=== PATIENT | female | born 1930 | race Caucasian/White ===

== ENCOUNTER 2017-01-02 14:40 | Inpatient (IN) | payer OTHER, MEDICARE ==
[~2017-01-02] VITALS: Ht 162.6 cm; Wt 75.7 kg
[2017-01-02] MEDS ORDERED: ALBUT/IPRATROP 3MG/0.5MG NEB 3 ML VIAL INH STA (15:06)
[2017-01-02 15:29] LABS: BASO % 0.3 %; BASO ABS # 0.02 K/uL (0-0.2); COMPLETE YES; EOS % 0.9 %; HEMATOCRIT 48.4 % (37-47); IG% 0.3 %; LYMPH % 18.9 %; MEAN CELL VOLUME 98.4 fL (80-100); MEAN CORPUSCULAR HEMOGLOBIN 32.5 pg (25-34); MEAN CORPUSCULAR HGB CONC 33.1 g/dl (32-36); MEAN PLATELET VOLUME 9.8 fL (7.4-10.4); MONO % 13.9 %; NEUT % 65.7 %; PLATELET COUNT 284 K/uL (130-400); RED BLOOD COUNT 4.92 M/uL (4.2-5.4); WHITE BLOOD COUNT 5.82 K/uL (4.8-10.8)
[2017-01-02 15:39] LABS: PARTIAL THROMBOPLASTIN RATIO 0.9; PROTHROMBIN TIME (PATIENT) 10.7 SECONDS (9.0-12.0)
[2017-01-02 15:49] LABS: BUN/CREATININE RATIO 26.3 (10-20); CALCIUM 8.9 mg/dl (8.5-10.1); CREATININE 0.64 mg/dl (0.60-1.20); POTASSIUM 3.2 mmol/L (3.5-5.1)
--- NOTE | 2017-01-02 15:53 | DIAGNOSTIC IMAGING REPORT ---
CHEST ONE VIEW PORTABLE CLINICAL HISTORY: CHEST PAIN dyspnea COMPARISON STUDY: No previous studies for comparison. FINDINGS: Poorly defined parenchymal infiltrate left base. Moderate elevation right hemidiaphragm. Lungs otherwise appear clear. IMPRESSION: Infiltrate left base Electronically signed by: Pipe Ayala M.D. 01/02/2017 3:52 PM Dictated Date/Time: 01/02/2017 3:52 PM
[2017-01-02 15:54] LABS: CKMB/CK RATIO 9.4 (0-3.0)
--- NOTE | 2017-01-02 16:18 | EMERGENCY ROOM VISIT NOTE ---
History Report prepared by Joel: Geronimo Francisco Under the Supervision of: Dr. Geronimo Leonardo M.D. First contact with patient: 14:58 Chief Complaint: RESPIRATORY PROBLEMS Stated Complaint: SOB Nursing Triage Summary: Patient arrived to [facility] via ALS from home. Patient states "My daughter and I were away in OR from the 03-22 of this month. When I got home, I got a cough and some shortness of breath. I saw my PCP last and was prescribed a 5 day course of Zithromax and Prednisone. I have COPD and I use a proair inhaler as well. I woke up this morning with increased difficulty breathing, a harry nonproductive cough and swelling in both of my legs." Patient denies any cardiac history. History of Present Illness The patient is a 86 year old female who presents to the Emergency Room by EMS with complaints of persistent shortness of breath beginning about 5 days ago. She recently travelled to [place] with her daughter, and notes her daughter became sick during the trip. She reports having a nonproductive cough, and had diarrhea only at the onset of her symptoms, but she denies having any fever, aches, nausea, vomiting, chest pain, or abdominal pain. She states her symptoms are worsened with laying down, and better with sitting up. The patient reports having a history of COPD and asthma, and normally uses albuterol. She was given a nebulizer by EMS. She does not use supplemental oxygen at home. The patient has been on azithromycin and prednisone, and was given 125 mg of Solu Medrol and a Duoneb at the clinic where she was seen. She was also hypoxemic at the clinic. She follows with Dr. Mendez. Source of History: patient, transfer records Onset: 5 days ago Position: other (lungs) Quality: other (shortness of breath) Timing: other (persistent) Associated Symptoms: + cough, + diarrhea (at onset of symptoms only), No chest pain, No fevers, No nausea Review of Systems See HPI for pertinent positives & negatives. A total of 10 systems reviewed and were otherwise negative. Past Medical & Surgical Medical Problems: (1) COPD exacerbation (2) Influenza A Old medical records were reviewed. Nurse's notes were reviewed and I agree with. Family History No pertinent family history stated. Social History Smoking Status: Former Smoker Drug Use: none Marital Status: single Current/Historical Medications Scheduled Aspirin (Aspirin 81), 81 MG PO QAM Atenolol (Tenormin), 25 MG PO QAM Cetirizine (Zyrtec), 10 MG PO QAM Hydrochlorothiazide (Hctz), 25 MG PO QAM Losartan Potassium (Cozaar), 25 MG PO QAM Metronidazole (Topical) (Metrogel), 1 APPLN TOP HS Multiple Vitamins W/ Minerals (Preservision Areds 2), 2 CAP PO QAM Oyster Shell (Calcium), 1,000 MG PO HS Potassium Chloride (Micro-K Ext Rel), 20 MEQ PO QAM Scheduled PRN Albuterol Sulfate (Proair Respiclick), 2 PUFFS INH Q4 PRN for Wheezing Allergies Coded Allergies: No Known Allergies (Verified , 01/02/17) Physical Exam Vital Signs Date Time Temp Pulse Resp B/P Pulse Ox O2 Delivery O2 Flow Rate FiO2 01/02/17 16:24 84 01/02/17 16:22 84 20 152/75 92 Nasal Cannula 3.0 01/02/17 14:45 88 Room Air 01/02/17 14:45 94 Nasal Cannula 2.0 01/02/17 14:45 36.5 73 20 179/78 88 Room Air Physical Exam General: Mildly ill appearing older female. Wearing supplemental oxygen. HEENT: Normal cephalic atraumatic. Pupils are equal round and reactive to light. Extraocular movements are intact. Oropharynx is pink with moist mucous membranes. No swelling of the mouth lips or tongue. Neck: Supple with a midline trachea. No meningeal signs or stiffness, no JVD or bruits. No Stridor. Chest: Audible wheezing bilaterally, mild increased work of breathing. Heart: regular rate and rhythm. Abdomen: Soft nontender, nondistended without rebound guarding or rigidity. Extremities: Trace pedal edema lower extremities. Spine/Back. Non tender to palpation. No CVA tenderness Skin: Good turgor without rashes. Neurologic exam: Cranial nerves two through 12 are intact. Motor and sensation are intact and symmetrical throughout. Medical Decision & Procedures ER Provider Diagnostic Interpretation: X ray results as stated below per my interpretation and radiologist interpretation. Other radiology results as stated below per my review and radiologist interpretation: CHEST ONE VIEW PORTABLE FINDINGS: Poorly defined parenchymal infiltrate left base. Moderate elevation right hemidiaphragm. Lungs otherwise appear clear. IMPRESSION: Infiltrate left base Electronically signed by: Pipe Ayala M.D. 01/02/2017 3:52 PM Dictated Date/Time: 01/02/2017 3:52 PM Laboratory Results 01/02/17 14:35 Red Blood Count 4.92, Mean Corpuscular Volume 98.4, Mean Corpuscular Hemoglobin 32.5, Mean Corpuscular Hemoglobin Concent 33.1, Mean Platelet Volume 9.8, Neutrophils (%) (Auto) 65.7, Lymphocytes (%) (Auto) 18.9, Monocytes (%) (Auto) 13.9, Eosinophils (%) (Auto) 0.9, Basophils (%) (Auto) 0.3, Neutrophils # (Auto ) 3.82, Lymphocytes # (Auto) 1.10, Monocytes # (Auto) 0.81, Eosinophils # (Auto ) 0.05, Basophils # (Auto) 0.02 01/02/17 14:35 Test 01/02/17 14:35 01/02/17 15:15 01/02/17 15:19 01/02/17 16:10 White Blood Count 5.82 K/uL (4.8-10.8) Red Blood Count 4.92 M/uL (4.2-5.4) Hemoglobin 16.0 g/dL (12.0-16.0) Hematocrit 48.4 % (37-47) Mean Corpuscular Volume 98.4 fL (80-100) Mean Corpuscular Hemoglobin 32.5 pg (25-34) Mean Corpuscular Hemoglobin Concent 33.1 g/dl (32-36) Platelet Count 284 K/uL (130-400) Mean Platelet Volume 9.8 fL (7.4-10.4) Neutrophils (%) (Auto) 65.7 % Lymphocytes (%) (Auto) 18.9 % Monocytes (%) (Auto) 13.9 % Eosinophils (%) (Auto) 0.9 % Basophils (%) (Auto) 0.3 % Neutrophils # (Auto) 3.82 K/uL (1.4-6.5) Lymphocytes # (Auto) 1.10 K/uL (1.2-3.4) Monocytes # (Auto) 0.81 K/uL (0.11-0.59) Eosinophils # (Auto) 0.05 K/uL (0-0.5) Basophils # (Auto) 0.02 K/uL (0-0.2) RDW Standard Deviation 49.7 fL (36.4-46.3) RDW Coefficient of Variation 13.9 % (11.5-14.5) Immature Granulocyte % (Auto) 0.3 % Immature Granulocyte # (Auto) 0.02 K/uL (0.00-0.02) Prothrombin Time 10.7 SECONDS (9.0-12.0) Prothromb Time International Ratio 1.0 (0.9-1.1) Activated Partial Thromboplast Time 23.8 SECONDS (21.0-31.0) Partial Thromboplastin Ratio 0.9 Anion Gap 13.0 mmol/L (3-11) Est Creatinine Clear Calc Drug Dose 65.9 ml/min Estimated GFR () 95.0 Estimated GFR (Non- 81.9 BUN/Creatinine Ratio 26.3 (10-20) Calcium Level 8.9 mg/dl (8.5-10.1) Total Bilirubin 0.5 mg/dl (0.2-1) Direct Bilirubin 0.1 mg/dl (0-0.2) Aspartate Amino Transf (AST/SGOT) 10 U/L (15-37) Alanine Aminotransferase (ALT/SGPT) 22 U/L (12-78) Alkaline Phosphatase 89 U/L (45-117) Total Creatine Kinase 31 U/L (26-192) Creatine Kinase MB 2.9 ng/ml (0.5-3.6) Creatine Kinase MB Ratio 9.4 (0-3.0) Total Protein 7.1 gm/dl (6.4-8.2) Albumin 3.7 gm/dl (3.4-5.0) Lipase 107 U/L (73-393) Influenza Type A (RT-PCR) POS for Influ A (NEG) Influenza Type B (RT-PCR) Neg for Influ B (NEG) Bedside Troponin I 0.000 ng/ml (0-0.045) SQ-Owh-S-Type Natriuretic Peptide 598 pg/ml (0-1800) Urine Color YELLOW Urine Appearance CLEAR (CLEAR) Urine pH 5.0 (4.5-7.5) Urine Specific [place] 1.017 (1.000-1.030) Urine Protein NEG (NEG) Urine Glucose (UA) NEG (NEG) Urine Ketones NEG (NEG) Urine Occult Blood 1+ (NEG) Urine Nitrite NEG (NEG) Urine Bilirubin NEG (NEG) Urine Urobilinogen NEG (NEG) Urine Leukocyte Esterase NEG (NEG) Urine WBC (Auto) 0 /hpf (0-5) Urine RBC (Auto) 0-4 /hpf (0-4) Urine Hyaline Casts (Auto) 1-5 /lpf (0-5) Urine Epithelial Cells (Auto) 5-10 /lpf (0-5) Urine Bacteria (Auto) NEG (NEG) Laboratory studies as stated above per my review. Medications Administered Medications (Trade) Dose Ordered Sig/Froilan Route Start Time Stop Time Status Last Admin Dose Admin Albuterol/ Ipratropium (Duoneb) 3 ml NOW STAT INH 01/02/17 15:06 01/02/17 15:10 DC 01/02/17 15:23 3 ML Levofloxacin (Levaquin / D5W) 750 mg NOW STAT IV 01/02/17 16:33 01/02/17 16:34 DC 01/02/17 17:23 750 MG ECG Indication: other (respiratory problems) Rate (beats per minute): 71 Rhythm: normal sinus Findings: PAC, RBBB, other (left axis deviation; poor R wave progression) Comparison ECG Date: January 21, 2003 Change: PACs now present. ED Course 1459: Past medical records reviewed. The patient was evaluated in room B4A, and a complete history and physical examination were performed. 1506: Ordered Duoneb 3 ml INH. 1633: Ordered Levofloxacin 750 mg IV. 1640: I spoke with Belen Mora PA-C about the patient's case. The patient will be further evaluated and managed for disposition. Medical Decision Differentials include CHF, pneumonia, bronchitis, COPD exacerbation, and acute coronary syndrome. This patient comes in as described above she's had over by her doctor's office after she was found to be wheezing and hypoxic. She's been on outpatient steroids and antibiotics and and has not gotten better. She does appear mildly tachypnea and has wheezes. She was given additional Albuterol/Atrovent nebs. IV access established. Blood cultures obtained.. Chest x-ray. EKG. and multiple blood testing was obtained. She has nothing to suggest acute coronary syndrome or arrhythmia. Chest x-ray suggested infiltrate in the base. She was given IV antibiotics. She has no significant electrolyte or metabolic abnormalities. She is not septic. She looks better and I do think needs to come in the hospital also. her flu test a come back positive. The [facility] team was consulted and saw the patient in ER will admit her for these measures. Consults Time Called: 1635 Consulting Physician: Belen Mora PA-C, [facility] Returned Call: 1640 I spoke with Belen Mora PA-C about the patient's case. The patient will be further evaluated and managed for disposition. Impression Primary Impression: Pneumonia Additional Impressions: COPD exacerbation Hypoxemia Influenza A Scribe Attestation The scribe's documentation has been prepared under my direction and personally reviewed by me in its entirety. I confirm that the note above accurately reflects all work, treatment, procedures, and medical decision making performed by me. Departure Information Dispostion Being Evaluated By Hospitalist Referrals Dandre Mendez D.O. (PCP) Patient Instructions My [facility] Problem Qualifiers
[2017-01-02] MEDS ORDERED: LEVAQUIN 750MG / 150ML D5W IV STA (16:33)
[2017-01-02] MEDS ORDERED: CETI10TA84 PO (16:38)
[2017-01-02] MEDS ORDERED: ALBU18002 INH (16:38)
[2017-01-02] MEDS ORDERED: MULT60CA PO (16:38)
[2017-01-02] MEDS ORDERED: ATEN-173 PO (16:38)
[2017-01-02] MEDS ORDERED: ASPI-435 PO (16:38)
[2017-01-02] MEDS ORDERED: HYDR25TA4 PO (16:38)
[2017-01-02] MEDS ORDERED: LOSA1TAB PO (16:38)
[2017-01-02] MEDS ORDERED: POTA10CA28 PO (16:38)
[2017-01-02] MEDS ORDERED: OYST500T47 PO (16:38)
[2017-01-02] MEDS ORDERED: METR0.7527 TOP (16:38)
[2017-01-02 17:07] LABS: INFLUENZA B PCR Neg for Influ B (NEG)
[2017-01-02 17:10] LABS: INFLUENZA A PCR POS for Influ A (NEG)
[2017-01-02 17:15] LABS: URINE APPEARANCE CLEAR (CLEAR); URINE BILIRUBIN NEG (NEG); URINE COLOR YELLOW; URINE NITRITE NEG (NEG); URINE SPECIFIC GRAVITY 1.017 (1.000-1.030); UROBILINOGEN NEG (NEG); ZZUR CULT IF INDIC CLEAN CATCH NO
[2017-01-02 17:30] LABS: MANUAL MICROSCOPIC REQUIRED? NO; REVIEW REQ? NO
[2017-01-02] MEDS ORDERED: MAGNESIUM HYDROXIDE SUSP 30 ML UDC PO PRN (18:00)
[2017-01-02] MEDS ORDERED: ALUMINUM/MAGNESIUM/SIMETH (MAALOX MAX) 30 ML UDC PO PRN (18:00)
[2017-01-02] MEDS ORDERED: ONDANSETRON INJ 2 MG/ML 2 ML VIAL IV PRN (18:00)
[2017-01-02] MEDS ORDERED: NITROGLYCERIN 0.4 MG SL PER TAB CHARGE SL PRN (18:00)
[2017-01-02] MEDS ORDERED: LEVALBUTEROL/IPRATROPIUM NEB INH PRN (18:00)
[2017-01-02] MEDS ORDERED: POTASSIUM CHLORIDE 10 MEQ TABCR PO STA (18:09)
--- NOTE | 2017-01-02 18:55 | HISTORY & PHYSICAL EXAMINATION ---
DATE OF ADMISSION: 01/02/2017 CHIEF COMPLAINT: Shortness of breath. HISTORY OF PRESENT ILLNESS: This is an 86-year-old female with past medical history significant for COPD, hypertension, hyperlipidemia, hyperglycemia, history of breast cancer, neuropathy, esophageal stricture, history of allergic rhinitis, allergic urticaria presents with shortness of breath and cough. The patient says she was in [place]; she flew back on December 22. Since then she is having chest congestion, shortness of breath and cough and she saw her family doctor and she was treated with a Z-FILIBERTO for 5 days, but symptoms is not getting better, not improving and getting worse, so she called her family doctor and she was advised to come to the ER. In ER, she was found to have left lower lobe infiltrate and also influenza positive. The patient is wheezing. Denies any chest pain. Denies fevers, denies headaches, denies blurred vision, no dizziness, no nausea, no vomiting. During these episodes, she has couple of episodes of diarrhea, but apparently okay NOW. Appetite is okay. Resting comfortably currently and hemodynamically stable. ALLERGIES: ENVIRONMENTAL POLLEN PAST MEDICAL HISTORY: As mentioned above. PAST SURGICAL HISTORY: Right total knee arthroplasty, left total knee arthroplasty, colonoscopy with removal of an adenomatous tissue, cystoscopy, skin abscess drainage, EGD with biopsies, EGD with transendoscopic dilatation, partial mastectomy, ruptured rotator cuff repair. MEDICATIONS: The patient is on Flonase 2 sprays in each nostril daily, potassium chloride ER 20 mEq p.o. daily, atenolol 25 mg p.o. daily, hydrochlorothiazide 25 mg p.o. daily, Cozaar 25 mg p.o. daily, albuterol 2 puffs every 4 hours p.r.n., amoxicillin 4 capsules by mouth 1 hour prior to dental appointment, PreserVision 2 capsules daily, aspirin 81 mg p.o. daily, Zyrtec 10 mg p.o. daily, calcium 1000 mg p.o. daily. FAMILY HISTORY: Significant for father had colon cancer, diabetes and heart disorder. Mother at the age of 90 and father at age of 80. SOCIAL HISTORY: . Former smoker, quit in 1968, smoked 1 pack a day for 10 years. Alcohol 1 martini per day. No drug use. REVIEW OF SYMPTOMS: As per HPI. Rest of review of systems negative. PHYSICAL EXAMINATION: GENERAL: The patient is of moderate build, not in distress. VITAL SIGNS: Temperature 36.5, pulse 84, respiratory rate 20, blood pressure 152/75, oxygen 92% on 3 liters. HEENT: No pallor, no icterus. Pupils equal, round, and reactive to light. NECK: No JVD, no neck masses, no carotid bruits. CARDIOVASCULAR: S1, S2 heard, regular rate and rhythm, no murmur, no gallop. RESPIRATORY SYSTEM: Clear to auscultation bilaterally. Bilateral wheezing heard. No crackles. ABDOMEN: Soft, bowel sounds present. Nontender. No distention. CENTRAL NERVOUS SYSTEM: Cranial nerves II-XII grossly intact. Nonfocal. EXTREMITIES: Pedal edema present. LABORATORY DATA: WBC 5.8, hemoglobin 16, hematocrit 48.4, and platelets 284 Sodium 138, potassium 3.2, chloride 93, CO2 32, BUN 17, creatinine 0.6. Serum glucose 103, calcium 8.9, total bilirubin 0.5, direct bilirubin 0.1, AST 10, ALT 22, alkaline phosphatase 89, total creatinine kinase 31. Point of care troponin 0.00. BNP 598, lipase 107. PT 10.7, INR 1, PTT 23.8. Influenza A positive. IMAGING DATA: Chest x-ray shows infiltrative left base. EKG shows sinus rhythm with PACs at a rate of 71, incomplete right bundle branch block, ASSESSMENT AND PLAN: This is an 86-year-old female who presents with a chronic obstructive pulmonary disease exacerbation and influenza A positive and pneumonia. 1. Chronic obstructive pulmonary disease exacerbation. Influenza A positive. Will start on Tamiflu, started on IV steroids, IV antibiotics and nebs. Monitor on tele floor. Nebs around the clock and p.r.n. 2. Pneumonia, left lateral base. Starting on antibiotics as a short 5-day course of Zithromax as outpatient. We will start on IV Rocephin, IV doxycycline. Flu is generally associated with staph pneumonia, so will monitor for response with above antibiotics. 3. History of hypertension. Continue atenolol hydrochlorothiazide/losartan. We will monitor the blood pressure in the hospital. 4. Hypokalemia. The patient is on potassium supplements. Continue potassium supplements.Will replace and follow the labs. 5. Lower extremity edema recently developed will check for DVT and follow echo. 6. History of hyperlipidemia. The patient is not on medication. Will follow the fasting lipid profile. 7. History of hyperglycemia. Will follow hemoglobin A1c levels. 8. History of breast cancer status post partial mastectomy. Follow as outpatient. 9. History of allergic rhinitis. Continue Zyrtec and flonase 9. History of esophageal stricture s/p dilatation. 10. Deep vein thrombosis prophylaxis. Sequential compression devices and heparin subQ. 11. Disposition: Admit to tele floor. Expect to discharge home and follow with family doctor. PT and OT prior to discharge. Social service to help with discharge planning. May need two step prior to discharge. Level 1 full code. MTDD
[2017-01-02 19:25] VITALS: Ht 162.6 cm; Wt 75.7 kg
[2017-01-02 20:53] VITALS: BP 168/102; PULSE 75; TEMP 36.5; O2SAT 90
[2017-01-02] MEDS: IPRATROPIUM BROMIDE NEB SOLN 0.02% 2.5 ML VIAL INH SCH (21:00)
[2017-01-02] MEDS ORDERED: IPRATROPIUM BROMIDE NEB SOLN 0.02% 2.5 ML VIAL INH PRN (21:00)
[2017-01-02] MEDS ORDERED: LEVALBUTEROL/IPRATROPIUM NEB INH SCH (21:00)
[2017-01-02] MEDS: LEVALBUTEROL 1.25MG/0.5ML NEB INH SCH (21:00)
[2017-01-02] MEDS ORDERED: ALBUTEROL HFA 8 GM INHALER INH PRN (21:00)
[2017-01-02] MEDS ORDERED: METRONIDAZOLE 0.75% TOPICAL GEL 45 GM TUBE TOP SCH (21:00)
[2017-01-02] MEDS ORDERED: LEVALBUTEROL 1.25MG/0.5ML NEB INH PRN (21:00)
[2017-01-02] MEDS: CEFTRIAXONE SOD INJ 1 GM in DEXTROSE 5% ADD-VANTAGE 50ML 50 ML IV SCH (22:03)
[2017-01-02] MEDS: METHYLPREDNISOLONE IV 40 MG in SYRINGE 0 ML IV SCH (22:06)
[2017-01-02] MEDS: HEPARIN SOD 5000 UNIT/0.5 ML CARP SQ SCH (22:09)
[2017-01-02] MEDS: OSELTAMIVIR PHOSPHATE SUSP 30 MG/5 ML UDP PO SCH (22:10)
[2017-01-02] MEDS: CALCIUM CARBONATE 1250MG TAB PO SCH (22:11)
[2017-01-02 22:54] VITALS: BP 167/82; PULSE 71; TEMP 36.6; O2SAT 94
[2017-01-02] MEDS ORDERED: NURSING DECISION MEDICATION ORDER SCH (23:15)
[2017-01-03] VITALS (14 sets, daily range): BP systolic 129–152; BP diastolic 73–84; PULSE 53–75; TEMP 36.4–36.7; O2SAT 91–97
[2017-01-03] MEDS: IPRATROPIUM BROMIDE NEB SOLN 0.02% 2.5 ML VIAL INH SCH ×4 (03:00→18:51)
[2017-01-03] MEDS: LEVALBUTEROL 1.25MG/0.5ML NEB INH SCH ×4 (03:00→18:51)
--- NOTE | 2017-01-03 06:43 | DIAGNOSTIC IMAGING REPORT ---
BILATERAL LOWER EXTREMITY VENOUS DOPPLER CLINICAL HISTORY: COPD exacerbation. Influenza A. COMPARISON STUDY: No previous studies for comparison. TECHNIQUE: Sonography of the deep venous system of the bilateral lower extremities was performed. Compression and augmentation were evaluated. FINDINGS: The bilateral common femoral, superficial femoral and popliteal veins were compressible. Augmentation was normal. Flow was shown within the deep calf vessels. IMPRESSION: No evidence of deep venous thrombus within the bilateral lower extremities. Electronically signed by: Giancarlo Hicks M.D. 01/03/2017 6:41 AM Dictated Date/Time: 01/03/2017 6:41 AM
[2017-01-03 07:55] LABS: BASO % 0.2 %; BASO ABS # 0.01 K/uL (0-0.2); COMPLETE YES; HEMATOCRIT 44.1 % (37-47); IG% 0.2 %; LYMPH % 12.3 %; LYMPH ABS # 0.55 K/uL (1.2-3.4); MEAN CELL VOLUME 97.6 fL (80-100); MEAN CORPUSCULAR HEMOGLOBIN 31.6 pg (25-34); MEAN CORPUSCULAR HGB CONC 32.4 g/dl (32-36); MEAN PLATELET VOLUME 9.4 fL (7.4-10.4); MONO % 6.7 %; NEUT % 80.6 %; PLATELET COUNT 248 K/uL (130-400); RED BLOOD COUNT 4.52 M/uL (4.2-5.4); WHITE BLOOD COUNT 4.47 K/uL (4.8-10.8)
[2017-01-03 08:23] LABS: BUN/CREATININE RATIO 20.7 (10-20); CALCIUM 8.9 mg/dl (8.5-10.1); CREATININE 0.61 mg/dl (0.60-1.20); MAGNESIUM 1.9 mg/dl (1.8-2.4); POTASSIUM 4.2 mmol/L (3.5-5.1)
[2017-01-03 09:09] LABS: ESTIMATED AVERAGE GLUCOSE 117 mg/dl; HA1C FLAG Normal (Normal)
[2017-01-03] MEDS: METHYLPREDNISOLONE IV 40 MG in SYRINGE 0 ML IV SCH ×2 (09:24→20:57)
[2017-01-03] MEDS: HYDROCHLOROTHIAZIDE 25 MG TAB PO SCH (09:25)
[2017-01-03] MEDS: CETIRIZINE HCL 10 MG TAB PO SCH (09:25)
[2017-01-03] MEDS: CEROVITE ADV FORMULA TAB PO SCH (09:26)
[2017-01-03] MEDS: ASPIRIN 81 MG ECTAB PO SCH (09:26)
[2017-01-03] MEDS: LOSARTAN POTASSIUM 25 MG TAB PO SCH (09:27)
[2017-01-03] MEDS: FLUTICASONE PROPIONATE NA SPR 16 GM BTL SCH (09:27)
[2017-01-03] MEDS: POTASSIUM CHLORIDE 10 MEQ TABCR PO SCH (09:28)
[2017-01-03] MEDS: METRONIDAZOLE 0.75% TOPICAL GEL 45 GM TUBE TOP SCH (09:30)
[2017-01-03] MEDS: HEPARIN SOD 5000 UNIT/0.5 ML CARP SQ SCH ×2 (09:36→21:03)
[2017-01-03] MEDS: OSELTAMIVIR PHOSPHATE SUSP 30 MG/5 ML UDP PO SCH ×2 (09:39→20:56)
[2017-01-03] MEDS: DOXYCYCLINE IV 100 MG in DEXTROSE 5% 100ML 100 ML IV SCH ×2 (09:40→21:56)
--- NOTE | 2017-01-03 10:50 | Progress Note ---
Subjective Date of Service: Jan 03, 2017. Subjective Pt evaluation today including: conversation w/ patient, physical exam, lab review, review of studies, review of inpatient medication list Saw/examined the patient in room 289 She continues to have chest congestion and shortness of breath, improved from admission Currently on oxygen which is helping her symptoms Problem List Medical Problems: (1) Hypoxemia Status: Acute (2) Pneumonia Status: Acute Review of Systems Constitutional: No chills, No fever Respiratory: + cough, + shortness of breath, + sputum, + wheezing, No dyspnea at rest, No dyspnea on exertion, No hemoptysis Cardiac: No chest pain, No edema, No orthopnea, No palpitations Abdomen: No diarrhea, No nausea, No pain, No vomiting Medications Current Inpatient Medications Medications (Trade) Dose Ordered Sig/Froil[place] Route Start Time Stop Time Status Last Admin Dose Admin Heparin Sodium (Porcine) (Heparin Sq 5000 Unit/0.5ml) 5,000 unit Q12 SQ 01/02/17 21:00 02/01/17 20:59 01/03/17 09:36 5,000 UNIT Acetaminophen (Tylenol Tab) 650 mg Q4H PRN PO 01/02/17 18:00 02/01/17 17:59 Al Hydrox/Mg Hydrox/Simethicone (Maalox Max Susp) 15 ml Q4H PRN PO 01/02/17 18:00 02/01/17 17:59 Magnesium Hydroxide (Milk Of Magnesia Susp) 30 ml Q12H PRN PO 01/02/17 18:00 02/01/17 17:59 Ondansetron HCl (Zofran Inj) 4 mg Q6H PRN IV 01/02/17 18:00 02/01/17 17:59 Nitroglycerin (Nitrostat Tab) 0.4 mg UD PRN SL 01/02/17 18:00 02/01/17 17:59 Aspirin (Ecotrin Tab) 81 mg QAM PO 01/03/17 09:00 02/02/17 08:59 01/03/17 09:26 81 MG Atenolol (Tenormin Tab) 25 mg QAM PO 01/03/17 09:00 02/02/17 08:59 01/03/17 09:25 25 MG Cetirizine HCl (zyrTEC TAB) 10 mg QAM PO 01/03/17 09:00 02/02/17 08:59 01/03/17 09:25 10 MG Hydrochlorothiazide (Hydrochlorothiazide Tab) 25 mg QAM PO 01/03/17 09:00 02/02/17 08:59 01/03/17 09:25 25 MG Losartan Potassium (coZAAR TAB) 25 mg QAM PO 01/03/17 09:00 02/02/17 08:59 01/03/17 09:27 25 MG Calcium Carbonate (oS-Steven 500 TAB) 1,250 mg HS PO 01/02/17 21:00 02/01/17 20:59 01/02/17 22:11 1,250 MG Potassium Chloride (Klor-Con M10) 20 meq QAM PO 01/03/17 09:00 02/02/17 08:59 01/03/17 09:28 20 MEQ Albuterol (Ventolin Hfa Inhaler) 2 puffs Q4H PRN INH 01/02/17 21:00 02/01/17 20:59 Multivitamins/ Minerals 1 tab 1 tab QAM PO 01/03/17 09:00 02/02/17 08:59 01/03/17 09:26 1 TAB Ceftriaxone Sodium 1 gm/ Dextrose 50 ml @ 100 mls/hr Q24H IV 01/02/17 21:00 01/09/17 20:59 01/02/17 22:03 100 MLS/HR Methylprednisolone Sodium Succinate 40 mg/Syringe 0.64 ml @ 1.5 mls/min TID IV 01/02/17 21:00 02/01/17 20:59 01/03/17 09:24 1.5 MLS/MIN Doxycycline Hyclate/Dextrose (Vibramycin IV/ D5 100ml) 110 ml @ 50 mls/hr Q12H IV 01/02/17 22:00 01/09/17 21:59 01/03/17 09:40 50 MLS/HR Oseltamivir Phosphate (Tamiflu Susp) 30 mg BID PO 01/02/17 22:00 01/07/17 09:01 01/03/17 09:39 30 MG Fluticasone Propionate (Flonase Nasal [place]) 2 sprays DAILY NA 01/03/17 09:00 02/02/17 08:59 01/03/17 09:27 2 SPRAYS Ipratropium [place] (Atrovent 0.02% 0.5MG/2.5ML Neb) 0.5 mg Q6R INH 01/02/17 21:00 02/01/17 20:59 01/03/17 07:46 0.5 MG Levalbuterol (Xopenex 1.25MG/ 0.5ML Neb) 1.25 mg Q6R INH 01/02/17 21:00 02/01/17 20:59 01/03/17 07:46 1.25 MG Ipratropium [place] (Atrovent 0.02% 0.5MG/2.5ML Neb) 0.5 mg Q2H PRN INH 01/02/17 21:00 02/01/17 20:59 Levalbuterol (Xopenex 1.25MG/ 0.5ML Neb) 1.25 mg Q2H PRN INH 01/02/17 21:00 02/01/17 20:59 Metronidazole HCl (Metrogel Topical Gel) 1 appln QAM TOP 01/03/17 09:00 01/13/17 08:59 01/03/17 09:30 1 APPLN Objective Vital Signs Date Time Temp Pulse Resp B/P Pulse Ox O2 Delivery O2 Flow Rate FiO2 01/03/17 08:00 36.5 63 20 152/73 95 Nasal Cannula 4.0 01/03/17 07:46 68 18 94 Nasal Cannula 4.0 01/03/17 04:05 36.4 73 16 150/76 92 Nasal Cannula 4.0 01/03/17 04:00 95 Nasal Cannula 4.0 01/03/17 03:50 71 18 93 Room Air 01/03/17 00:38 75 18 93 Room Air 01/03/17 00:00 95 Nasal Cannula 4.0 01/02/17 22:54 36.6 71 18 167/82 94 Nasal Cannula 4.0 01/02/17 20:53 36.5 75 28 168/102 90 Nasal Cannula 4.0 01/02/17 20:13 77 20 154/82 95 Room Air 3.0 01/02/17 19:25 Nasal Cannula 3.0 01/02/17 18:20 81 20 145/74 94 Nasal Cannula 3.0 01/02/17 16:24 84 01/02/17 16:22 84 20 152/75 92 Nasal Cannula 3.0 01/02/17 14:45 88 Room Air 01/02/17 14:45 94 Nasal Cannula 2.0 01/02/17 14:45 36.5 73 20 179/78 88 Room Air Physical Exam General Appearance: no apparent distress Respiratory/Chest: chest non-tender, no respiratory distress, no accessory muscle use, + decreased breath sounds (decreased air movement), + wheezing ( diffuse end expiratory wheezing) Cardiovascular: regular rate, rhythm, no edema, no murmur Abdomen: normal bowel sounds, non tender, soft Extremities: normal inspection, no pedal edema Neurologic/Psychiatric: no motor/sensory deficits, alert, normal mood/affect Laboratory Results Last 24 Hours Test 01/02/17 14:35 01/02/17 15:15 01/02/17 15:19 01/02/17 16:10 White Blood Count 5.82 K/uL Red Blood Count 4.92 M/uL Hemoglobin 16.0 g/dL Hematocrit 48.4 % Mean Corpuscular Volume 98.4 fL Mean Corpuscular Hemoglobin 32.5 pg Mean Corpuscular Hemoglobin Concent 33.1 g/dl Platelet Count 284 K/uL Mean Platelet Volume 9.8 fL Neutrophils (%) (Auto) 65.7 % Lymphocytes (%) (Auto) 18.9 % Monocytes (%) (Auto) 13.9 % Eosinophils (%) (Auto) 0.9 % Basophils (%) (Auto) 0.3 % Neutrophils # (Auto) 3.82 K/uL Lymphocytes # (Auto) 1.10 K/uL Monocytes # (Auto) 0.81 K/uL Eosinophils # (Auto) 0.05 K/uL Basophils # (Auto) 0.02 K/uL RDW Standard Deviation 49.7 fL RDW Coefficient of Variation 13.9 % Immature Granulocyte % (Auto) 0.3 % Immature Granulocyte # (Auto) 0.02 K/uL Prothrombin Time 10.7 SECONDS Prothromb Time International Ratio 1.0 Activated Partial Thromboplast Time 23.8 SECONDS Partial Thromboplastin Ratio 0.9 Sodium Level 138 mmol/L Potassium Level 3.2 mmol/L Chloride Level 93 mmol/L Carbon Dioxide Level 32 mmol/L Anion Gap 13.0 mmol/L Blood Urea Nitrogen 17 mg/dl Creatinine 0.64 mg/dl Est Creatinine Clear Calc Drug Dose 65.9 ml/min Estimated GFR () 95.0 Estimated GFR (Non- 81.9 BUN/Creatinine Ratio 26.3 Random Glucose 103 mg/dl Calcium Level 8.9 mg/dl Total Bilirubin 0.5 mg/dl Direct Bilirubin 0.1 mg/dl Aspartate Amino Transf (AST/SGOT) 10 U/L Alanine Aminotransferase (ALT/SGPT) 22 U/L Alkaline Phosphatase 89 U/L Total Creatine Kinase 31 U/L Creatine Kinase MB 2.9 ng/ml Creatine Kinase MB Ratio 9.4 Total Protein 7.1 gm/dl Albumin 3.7 gm/dl Lipase 107 U/L Influenza Type A (RT-PCR) POS for Influ A Influenza Type B (RT-PCR) Neg for Influ B Bedside Troponin I 0.000 ng/ml [id number] Natriuretic Peptide 598 pg/ml Urine Color YELLOW Urine Appearance CLEAR Urine pH 5.0 Urine Specific [place] 1.017 Urine Protein NEG Urine Glucose (UA) NEG Urine Ketones NEG Urine Occult Blood 1+ Urine Nitrite NEG Urine Bilirubin NEG Urine Urobilinogen NEG Urine Leukocyte Esterase NEG Urine WBC (Auto) 0 /hpf Urine RBC (Auto) 0-4 /hpf Urine Hyaline Casts (Auto) 1-5 /lpf Urine Epithelial Cells (Auto) 5-10 /lpf Urine Bacteria (Auto) NEG Test 01/03/17 07:24 01/03/17 07:54 White Blood Count 4.47 K/uL Red Blood Count 4.52 M/uL Hemoglobin 14.3 g/dL Hematocrit 44.1 % Mean Corpuscular Volume 97.6 fL Mean Corpuscular Hemoglobin 31.6 pg Mean Corpuscular Hemoglobin Concent 32.4 g/dl Platelet Count 248 K/uL Mean Platelet Volume 9.4 fL Neutrophils (%) (Auto) 80.6 % Lymphocytes (%) (Auto) 12.3 % Monocytes (%) (Auto) 6.7 % Eosinophils (%) (Auto) 0.0 % Basophils (%) (Auto) 0.2 % Neutrophils # (Auto) 3.60 K/uL Lymphocytes # (Auto) 0.55 K/uL Monocytes # (Auto) 0.30 K/uL Eosinophils # (Auto) 0.00 K/uL Basophils # (Auto) 0.01 K/uL RDW Standard Deviation 50.2 fL RDW Coefficient of Variation 14.0 % Immature Granulocyte % (Auto) 0.2 % Immature Granulocyte # (Auto) 0.01 K/uL Sodium Level 138 mmol/L Potassium Level 4.2 mmol/L Chloride Level 95 mmol/L Carbon Dioxide Level 35 mmol/L Anion Gap 8.0 mmol/L Blood Urea Nitrogen 13 mg/dl Creatinine 0.61 mg/dl Est Creatinine Clear Calc Drug Dose 69.4 ml/min Estimated GFR () 96.5 Estimated GFR (Non- 83.2 BUN/Creatinine Ratio 20.7 Random Glucose 138 mg/dl Estimated Average Glucose 117 mg/dl Hemoglobin A1c 5.7 % Calcium Level 8.9 mg/dl Magnesium Level 1.9 mg/dl Bedside Glucose 118 mg/dl Assessment and Plan This is an 86 year old female with PMH of COPD, allergic rhinitis, HTN, HLD, hx. of breast CA presents with shortness of breath and chest congestion - found to be Flu +, pneumonia as well as COPD exacerbation Influenza A+ Patient did receive influenza vaccine this year Found to be Influenza A + Tamiflu x 5 days total Acute COPD exacerbation currently requiring oxygen supplementation, more for symptoms Will taper IV steroids to q12 with the goal to convert to oral steroid taper in AM nebulizers around the clock and as needed we will attempt to wean oxygen today Community Acquired Pneumonia left lower lobe infiltrate noted patient is started on IV Rocephin and doxycycline blood cultures pending, not bringing up sputum for sputum cultures no leukocytosis, afebrile, hemodynamically stable Goal is to convert to PO antibiotics, likely in AM Allergic Rhinitis continue Zyrtec and flonase HTN blood pressure stable continue home medications Hyperglycemia Ha1c = 5.7%, monitor with steroid use DVT ppx subq heparin FULL CODE
[2017-01-03] MEDS: CEFTRIAXONE SOD INJ 1 GM in DEXTROSE 5% ADD-VANTAGE 50ML 50 ML IV SCH (20:57)
[2017-01-03] MEDS: CALCIUM CARBONATE 1250MG TAB PO SCH (20:58)
[2017-01-04] VITALS (10 sets, daily range): BP systolic 136–164; BP diastolic 68–84; PULSE 58–76; TEMP 36.4–36.7; O2SAT 93–96
[2017-01-04] MEDS: LEVALBUTEROL 1.25MG/0.5ML NEB INH SCH ×4 (02:41→19:01)
[2017-01-04] MEDS: IPRATROPIUM BROMIDE NEB SOLN 0.02% 2.5 ML VIAL INH SCH ×4 (02:41→19:01)
[2017-01-04 06:42] LABS: BASO % 0.1 %; BASO ABS # 0.01 K/uL (0-0.2); COMPLETE YES; HEMATOCRIT 43.9 % (37-47); IG% 0.1 %; LYMPH % 11.7 %; LYMPH ABS # 0.84 K/uL (1.2-3.4); MEAN CORPUSCULAR HEMOGLOBIN 31.9 pg (25-34); MEAN CORPUSCULAR HGB CONC 32.6 g/dl (32-36); MEAN PLATELET VOLUME 9.5 fL (7.4-10.4); MONO % 6.8 %; NEUT % 81.3 %; PLATELET COUNT 238 K/uL (130-400); RED BLOOD COUNT 4.48 M/uL (4.2-5.4); WHITE BLOOD COUNT 7.16 K/uL (4.8-10.8)
[2017-01-04 07:09] LABS: BUN/CREATININE RATIO 39.1 (10-20); CALCIUM 9.1 mg/dl (8.5-10.1); CREATININE 0.54 mg/dl (0.60-1.20); MAGNESIUM 2.1 mg/dl (1.8-2.4); POTASSIUM 4.5 mmol/L (3.5-5.1)
[2017-01-04] MEDS: FLUTICASONE PROPIONATE NA SPR 16 GM BTL SCH (09:01)
[2017-01-04] MEDS: HEPARIN SOD 5000 UNIT/0.5 ML CARP SQ SCH ×2 (09:02→21:04)
[2017-01-04] MEDS: LOSARTAN POTASSIUM 25 MG TAB PO SCH (09:04)
[2017-01-04] MEDS: HYDROCHLOROTHIAZIDE 25 MG TAB PO SCH (09:05)
[2017-01-04] MEDS: ASPIRIN 81 MG ECTAB PO SCH (09:05)
[2017-01-04] MEDS: CEROVITE ADV FORMULA TAB PO SCH (09:06)
[2017-01-04] MEDS: POTASSIUM CHLORIDE 10 MEQ TABCR PO SCH (09:06)
[2017-01-04] MEDS: CETIRIZINE HCL 10 MG TAB PO SCH (09:07)
[2017-01-04] MEDS: OSELTAMIVIR PHOSPHATE SUSP 30 MG/5 ML UDP PO SCH ×2 (09:13→21:01)
[2017-01-04] MEDS: METRONIDAZOLE 0.75% TOPICAL GEL 45 GM TUBE TOP SCH (09:14)
[2017-01-04] MEDS: METHYLPREDNISOLONE IV 40 MG in SYRINGE 0 ML IV SCH (09:22)
[2017-01-04] MEDS: DOXYCYCLINE IV 100 MG in DEXTROSE 5% 100ML 100 ML IV SCH (10:24)
--- NOTE | 2017-01-04 12:25 | Progress Note ---
Subjective Date of Service: Jan 04, 2017. Subjective Pt evaluation today including: conversation w/ patient, physical exam, lab review, review of studies, review of inpatient medication list Saw/examined the patient in room 289 Doing okay today; still requiring supplemental O2 breathing improving; +weakness, +cough Problem List Medical Problems: (1) COPD exacerbation Status: Acute (2) Hypoxemia Status: Acute (3) Hypoxemia Status: Acute (4) Pneumonia Status: Acute (5) Pneumonia Status: Acute Review of Systems Constitutional: + weakness, No chills, No fever Respiratory: + cough, + sputum, No dyspnea at rest, No dyspnea on exertion, No hemoptysis, No shortness of breath, No wheezing Abdomen: No diarrhea, No nausea, No pain, No vomiting Medications Current Inpatient Medications Medications (Trade) Dose Ordered Sig/Froil[place] Route Start Time Stop Time Status Last Admin Dose Admin Heparin Sodium (Porcine) (Heparin Sq 5000 Unit/0.5ml) 5,000 unit Q12 SQ 01/02/17 21:00 02/01/17 20:59 01/04/17 09:02 5,000 UNIT Acetaminophen (Tylenol Tab) 650 mg Q4H PRN PO 01/02/17 18:00 02/01/17 17:59 Al Hydrox/Mg Hydrox/Simethicone (Maalox Max Susp) 15 ml Q4H PRN PO 01/02/17 18:00 02/01/17 17:59 Magnesium Hydroxide (Milk Of Magnesia Susp) 30 ml Q12H PRN PO 01/02/17 18:00 02/01/17 17:59 Ondansetron HCl (Zofran Inj) 4 mg Q6H PRN IV 01/02/17 18:00 02/01/17 17:59 Nitroglycerin (Nitrostat Tab) 0.4 mg UD PRN SL 01/02/17 18:00 02/01/17 17:59 Aspirin (Ecotrin Tab) 81 mg QAM PO 01/03/17 09:00 02/02/17 08:59 01/04/17 09:05 81 MG Atenolol (Tenormin Tab) 25 mg QAM PO 01/03/17 09:00 02/02/17 08:59 01/04/17 09:06 25 MG Cetirizine HCl (zyrTEC TAB) 10 mg QAM PO 01/03/17 09:00 02/02/17 08:59 01/04/17 09:07 10 MG Hydrochlorothiazide (Hydrochlorothiazide Tab) 25 mg QAM PO 01/03/17 09:00 02/02/17 08:59 01/04/17 09:05 25 MG Losartan Potassium (coZAAR TAB) 25 mg QAM PO 01/03/17 09:00 02/02/17 08:59 01/04/17 09:04 25 MG Calcium Carbonate (oS-Steven 500 TAB) 1,250 mg HS PO 01/02/17 21:00 02/01/17 20:59 01/03/17 20:58 1,250 MG Potassium Chloride (Klor-Con M10) 20 meq QAM PO 01/03/17 09:00 02/02/17 08:59 01/04/17 09:06 20 MEQ Albuterol (Ventolin Hfa Inhaler) 2 puffs Q4H PRN INH 01/02/17 21:00 02/01/17 20:59 Multivitamins/ Minerals 1 tab 1 tab QAM PO 01/03/17 09:00 02/02/17 08:59 01/04/17 09:06 1 TAB Ceftriaxone Sodium 1 gm/ Dextrose 50 ml @ 100 mls/hr Q24H IV 01/02/17 21:00 01/09/17 20:59 01/03/17 20:57 100 MLS/HR Doxycycline Hyclate/Dextrose (Vibramycin IV/ D5 100ml) 110 ml @ 50 mls/hr Q12H IV 01/02/17 22:00 01/09/17 21:59 01/04/17 10:24 50 MLS/HR Oseltamivir Phosphate (Tamiflu Susp) 30 mg BID PO 01/02/17 22:00 01/07/17 09:01 01/04/17 09:13 30 MG Fluticasone Propionate (Flonase Nasal [place]) 2 sprays DAILY NA 01/03/17 09:00 02/02/17 08:59 01/04/17 09:01 2 SPRAYS Ipratropium [place] (Atrovent 0.02% 0.5MG/2.5ML Neb) 0.5 mg Q6R INH 01/02/17 21:00 02/01/17 20:59 01/04/17 07:21 0.5 MG Levalbuterol (Xopenex 1.25MG/ 0.5ML Neb) 1.25 mg Q6R INH 01/02/17 21:00 02/01/17 20:59 01/04/17 07:21 1.25 MG Ipratropium [place] (Atrovent 0.02% 0.5MG/2.5ML Neb) 0.5 mg Q2H PRN INH 01/02/17 21:00 02/01/17 20:59 Levalbuterol (Xopenex 1.25MG/ 0.5ML Neb) 1.25 mg Q2H PRN INH 01/02/17 21:00 02/01/17 20:59 Metronidazole HCl 1 appln 1 appln QAM TOP 01/03/17 09:00 01/13/17 08:59 01/04/17 09:14 1 APPLN Methylprednisolone Sodium Succinate/ Syringe (Solu-Medrol IV/ Syringe) 0.64 ml @ 1.5 mls/min DAILY IV 01/05/17 09:00 02/04/17 08:59 UNV Objective Vital Signs Date Time Temp Pulse Resp B/P Pulse Ox O2 Delivery O2 Flow Rate FiO2 01/04/17 08:00 Nasal Cannula 2.0 01/04/17 07:58 36.5 64 20 161/83 94 Nasal Cannula 2.0 01/04/17 07:23 62 16 94 Nasal Cannula 2.0 01/04/17 04:00 36.7 62 20 136/71 93 2.0 01/04/17 04:00 Nasal Cannula 2.0 01/04/17 00:20 58 141/69 01/04/17 00:04 36.5 72 20 160/84 94 Nasal Cannula 2.0 01/04/17 00:00 Nasal Cannula 2.0 01/03/17 20:00 93 Nasal Cannula 3.0 Humidified Oxygen 01/03/17 19:43 36.5 65 20 129/75 91 Nasal Cannula 2.0 01/03/17 18:51 54 16 96 Nasal Cannula 3.0 01/03/17 16:00 93 Nasal Cannula 3.0 Humidified Oxygen 01/03/17 14:35 36.5 53 22 146/81 93 Nasal Cannula 4.0 Physical Exam General Appearance: no apparent distress Respiratory/Chest: no respiratory distress, no accessory muscle use, + wheezing (right base) Cardiovascular: regular rate, rhythm, no edema, no murmur Abdomen: normal bowel sounds, non tender, soft Extremities: normal inspection, no pedal edema Neurologic/Psychiatric: no motor/sensory deficits, alert, normal mood/affect Laboratory Results Last 24 Hours Test 01/04/17 06:24 White Blood Count 7.16 K/uL Red Blood Count 4.48 M/uL Hemoglobin 14.3 g/dL Hematocrit 43.9 % Mean Corpuscular Volume 98.0 fL Mean Corpuscular Hemoglobin 31.9 pg Mean Corpuscular Hemoglobin Concent 32.6 g/dl Platelet Count 238 K/uL Mean Platelet Volume 9.5 fL Neutrophils (%) (Auto) 81.3 % Lymphocytes (%) (Auto) 11.7 % Monocytes (%) (Auto) 6.8 % Eosinophils (%) (Auto) 0.0 % Basophils (%) (Auto) 0.1 % Neutrophils # (Auto) 5.81 K/uL Lymphocytes # (Auto) 0.84 K/uL Monocytes # (Auto) 0.49 K/uL Eosinophils # (Auto) 0.00 K/uL Basophils # (Auto) 0.01 K/uL RDW Standard Deviation 50.4 fL RDW Coefficient of Variation 14.1 % Immature Granulocyte % (Auto) 0.1 % Immature Granulocyte # (Auto) 0.01 K/uL Sodium Level 135 mmol/L Potassium Level 4.5 mmol/L Chloride Level 93 mmol/L Carbon Dioxide Level 38 mmol/L Anion Gap 4.0 mmol/L Blood Urea Nitrogen 21 mg/dl Creatinine 0.54 mg/dl Est Creatinine Clear Calc Drug Dose 78.5 ml/min Estimated GFR () 100.4 Estimated GFR (Non- 86.7 BUN/Creatinine Ratio 39.1 Random Glucose 123 mg/dl Calcium Level 9.1 mg/dl Magnesium Level 2.1 mg/dl Assessment and Plan This is an 86 year old female with PMH of COPD, allergic rhinitis, HTN, HLD, hx. of breast CA presents with shortness of breath and chest congestion - found to be Flu +, pneumonia as well as COPD exacerbation Influenza A+ Patient did receive influenza vaccine this year Found to be Influenza A + Tamiflu x 5 days total Acute COPD exacerbation 01/04 cut the IV steroids to daily, and will transition to PO on 01/05 continue nebs and oxygen as needed wean O2 as tolerated 01/03 currently requiring oxygen supplementation, more for symptoms Will taper IV steroids to q12 with the goal to convert to oral steroid taper in AM nebulizers around the clock and as needed we will attempt to wean oxygen today Community Acquired Pneumonia 01/04 switch IV Rocephin + doxy to PO levaquin will check for c. diff left lower lobe infiltrate noted patient is started on IV Rocephin and doxycycline blood cultures pending, not bringing up sputum for sputum cultures no leukocytosis, afebrile, hemodynamically stable Goal is to convert to PO antibiotics, likely in AM Allergic Rhinitis continue Zyrtec and flonase HTN blood pressure stable continue home medications Hyperglycemia Ha1c = 5.7%, monitor with steroid use DVT ppx subq heparin FULL CODE
[2017-01-04] MEDS: LEVOFLOXACIN 750 MG TAB PO SCH (13:57)
--- NOTE | 2017-01-04 18:25 | ECHOCARDIOGRAM REPORT ---
*NOTICE TO RECEIVING REPUBL[employer] AGENCY This information is strictly Confidential and protected under [place] law. [place] law prohibits you from making any further disclosure of this information unless further disclosure is expressly permitted by the written consent of the person to whom it pertains or is authorized by law. A general authorization for the release of medical or other information is not sufficient for this purpose. Hospital accepts no responsibility if the information is made available to any other person, INCLUDING THE PATIENT. Interpretation Summary * Name: EMMA GUIDRY Study Date: 01/03/2017 02:00 PM BP: 150/76 mmHg * Patient Location: [facility]\S\N289\S\2 HR: 73 * : 1930 (M/d/yyyy) Gender: Female Height: 64 in * Age: 86 yrs Ethnicity: CA Weight: 170 lb * Ordering Physician: Sotero Mays * Referring Physician: Peyton Silva * Performed By: Silvia Erazo RCS * * Reason For Study: CHF * BSA: 1.8 m2 * -- Conclusions -- * The left ventricular wall motion is normal. * Left ventricular systolic function is normal. * Ejection Fraction = 60-65%. * There is trace mitral regurgitation. * There is mild tricuspid regurgitation. * Mild pulmonary hypertension is present. * The PA systolic pressure is calculated to be 48 mm Hg. * The left atrium is severely dilated. * Grade I diastolic dysfunction, (abnormal relaxation pattern). Procedure Details * A complete two-dimensional transthoracic echocardiogram was performed (2D, M-mode, Doppler and color flow Doppler). Left Ventricle * The left ventricle is normal in size. * There is normal left ventricular wall thickness. * Left ventricular systolic function is normal. * Ejection Fraction = 60-65%. * The left ventricular wall motion is normal. Right Ventricle * The right ventricle is normal in size and function. Atria * The left atrium is severely dilated. * Right atrial size is normal. * No ASD detected; PFO is not assessed. Mitral Valve * The mitral valve is normal. * There is no mitral valve stenosis. * There is trace mitral regurgitation. Tricuspid Valve * The tricuspid valve is normal. * There is no tricuspid stenosis. * There is mild tricuspid regurgitation. * Mild pulmonary hypertension is present. The PA systolic pressure is calculated to be 48 mm Hg. Aortic Valve * The aortic valve is trileaflet. * No hemodynamically significant valvular aortic stenosis. * No aortic regurgitation is present. Pulmonic Valve * The pulmonic valve is not well visualized. Great Vessels * The aortic root is normal size. Pericardium/Pleural * There is no pericardial effusion. Great Vessels * Normal inferior vena cava diameter and respiratory variation suggests normal central venous pressure. Left Ventricular Diastolic Function * Grade I diastolic dysfunction, (abnormal relaxation pattern). MMode 2D Measurements and Calculations IVSd 0.89 cm IVSs 1.4 cm LVIDd 5.5 cm LVIDs 4.2 cm LVPWd 0.82 cm LVPWs 1.1 cm IVS/LVPW 1.1 FS 24.9 % EDV(Teich) 149.4 ml ESV(Teich) 76.6 ml EF(Teich) 48.7 % EDV(cubed) 169.3 ml ESV(cubed) 71.7 ml EF(cubed) 57.6 % % IVS thick 57.7 % % LVPW thick 28.9 % LV mass(C)d 176.1 grams LV mass(C)dI 96.5 grams/m\S\2 LV mass(C)s 182.3 grams LV mass(C)sI 99.9 grams/m\S\2 CO(Teich) 4.7 l/min CI(Teich) 2.6 l/min/m\S\2 SV(Teich) 72.8 ml SI(Teich) 39.9 ml/m\S\2 CO(cubed) 6.3 l/min CI(cubed) 3.5 l/min/m\S\2 SV(cubed) 97.6 ml SI(cubed) 53.5 ml/m\S\2 Ao root diam 3.4 cm Ao root area 8.9 cm\S\2 ACS 1.6 cm LA dimension 5.1 cm LA/Ao 1.5 LVAd ap4 27.1 cm\S\2 LVLd ap4 7.7 cm EDV(MOD-sp4) 79.0 ml LVAs ap4 13.1 cm\S\2 LVLs ap4 5.9 cm ESV(MOD-sp4) 25.0 ml EF(MOD-sp4) 68.4 % LVAd ap2 29.7 cm\S\2 LVLd ap2 7.7 cm EDV(MOD-sp2) 96.0 ml LVAs ap2 17.3 cm\S\2 LVLs ap2 6.4 cm ESV(MOD-sp2) 40.0 ml EF(MOD-sp2) 58.3 % CO(MOD-sp4) 3.5 l/min CI(MOD-sp4) 1.9 l/min/m\S\2 SV(MOD-sp4) 54.0 ml SI(MOD-sp4) 29.6 ml/m\S\2 CO(MOD-sp2) 3.6 l/min CI(MOD-sp2) 2.0 l/min/m\S\2 SV(MOD-sp2) 56.0 ml SI(MOD-sp2) 30.7 ml/m\S\2 Doppler Measurements and Calculations MV E max pj 117.0 cm/sec MV A max pj 87.9 cm/sec MV E/A 1.3 MV P1/2t max pj 119.0 cm/sec MV P1/2t 86.2 msec MVA(P1/2t) 2.6 cm\S\2 MV dec slope 404.3 cm/sec\S\2 MV dec time 0.18 sec Ao V2 max 186.0 cm/sec Ao max PG 13.8 mmHg Ao max PG (full) 4.3 mmHg LV V1 max PG 9.5 mmHg LV V1 max 154.2 cm/sec PA V2 max 103.2 cm/sec PA max PG 4.3 mmHg PI max pj 176.2 cm/sec PI max PG 12.4 mmHg PI dec slope 168.9 cm/sec\S\2 PI P1/2t 305.4 msec TR max pj 279.5 cm/sec
[2017-01-04] MEDS: CALCIUM CARBONATE 1250MG TAB PO SCH (21:01)
[2017-01-05] VITALS (12 sets, daily range): BP systolic 134–151; BP diastolic 75–90; PULSE 53–86; TEMP 36.4–36.9; O2SAT 90–94
[2017-01-05] MEDS: IPRATROPIUM BROMIDE NEB SOLN 0.02% 2.5 ML VIAL INH SCH ×4 (02:01→20:08)
[2017-01-05] MEDS: LEVALBUTEROL 1.25MG/0.5ML NEB INH SCH ×4 (02:01→20:08)
[2017-01-05 07:30] LABS: COMPLETE YES; EOS % 0.3 %; HEMATOCRIT 45.2 % (37-47); IG% 0.3 %; LYMPH % 27.6 %; MEAN CORPUSCULAR HEMOGLOBIN 32.3 pg (25-34); MEAN PLATELET VOLUME 9.5 fL (7.4-10.4); NEUT % 60.8 %; PLATELET COUNT 244 K/uL (130-400); RED BLOOD COUNT 4.61 M/uL (4.2-5.4); WHITE BLOOD COUNT 7.25 K/uL (4.8-10.8)
[2017-01-05 08:10] LABS: BUN/CREATININE RATIO 32.3 (10-20); CALCIUM 8.9 mg/dl (8.5-10.1); CREATININE 0.61 mg/dl (0.60-1.20); POTASSIUM 3.9 mmol/L (3.5-5.1)
[2017-01-05] MEDS: ASPIRIN 81 MG ECTAB PO SCH (09:02)
[2017-01-05] MEDS: POTASSIUM CHLORIDE 10 MEQ TABCR PO SCH (09:03)
[2017-01-05] MEDS: HYDROCHLOROTHIAZIDE 25 MG TAB PO SCH (09:03)
[2017-01-05] MEDS: CETIRIZINE HCL 10 MG TAB PO SCH (09:03)
[2017-01-05] MEDS: FLUTICASONE PROPIONATE NA SPR 16 GM BTL SCH (09:04)
[2017-01-05] MEDS: LOSARTAN POTASSIUM 25 MG TAB PO SCH (09:04)
[2017-01-05] MEDS: CEROVITE ADV FORMULA TAB PO SCH (09:05)
[2017-01-05] MEDS: METHYLPREDNISOLONE IV 40 MG in SYRINGE 0 ML IV SCH (09:09)
[2017-01-05] MEDS: METRONIDAZOLE 0.75% TOPICAL GEL 45 GM TUBE TOP SCH (09:09)
[2017-01-05] MEDS: OSELTAMIVIR PHOSPHATE SUSP 30 MG/5 ML UDP PO SCH ×2 (09:09→21:04)
[2017-01-05] MEDS: HEPARIN SOD 5000 UNIT/0.5 ML CARP SQ SCH ×2 (09:29→20:47)
[2017-01-05] MEDS: LEVOFLOXACIN 750 MG TAB PO SCH (11:16)
--- NOTE | 2017-01-05 16:55 | Progress Note ---
Subjective Date of Service: Jan 05, 2017. Subjective Pt evaluation today including: conversation w/ patient, physical exam, lab review, review of studies, review of inpatient medication list Saw/examined the patient in room 289 Continued need for supplemental oxygen, while ambulating, O2 sats dipped to the 70s She still has dyspnea with exertion she denies fevers/chills, denies chest pain/palpitations Problem List Medical Problems: (1) COPD exacerbation Status: Acute (2) Hypoxemia Status: Acute (3) Hypoxemia Status: Acute (4) Pneumonia Status: Acute (5) Pneumonia Status: Acute Review of Systems Constitutional: No chills, No fever Respiratory: + dyspnea on exertion, + wheezing, No cough, No shortness of breath, No sputum Cardiac: No chest pain, No edema, No palpitations Abdomen: No diarrhea, No nausea, No pain, No vomiting Medications Current Inpatient Medications Medications (Trade) Dose Ordered Sig/Froilan Route Start Time Stop Time Status Last Admin Dose Admin Heparin Sodium (Porcine) (Heparin Sq 5000 Unit/0.5ml) 5,000 unit Q12 SQ 01/02/17 21:00 02/01/17 20:59 01/05/17 09:29 5,000 UNIT Acetaminophen (Tylenol Tab) 650 mg Q4H PRN PO 01/02/17 18:00 02/01/17 17:59 Al Hydrox/Mg Hydrox/Simethicone (Maalox Max Susp) 15 ml Q4H PRN PO 01/02/17 18:00 02/01/17 17:59 Magnesium Hydroxide (Milk Of Magnesia Susp) 30 ml Q12H PRN PO 01/02/17 18:00 02/01/17 17:59 Ondansetron HCl (Zofran Inj) 4 mg Q6H PRN IV 01/02/17 18:00 02/01/17 17:59 Nitroglycerin (Nitrostat Tab) 0.4 mg UD PRN SL 01/02/17 18:00 02/01/17 17:59 Aspirin (Ecotrin Tab) 81 mg QAM PO 01/03/17 09:00 02/02/17 08:59 01/05/17 09:02 81 MG Atenolol (Tenormin Tab) 25 mg QAM PO 01/03/17 09:00 02/02/17 08:59 01/05/17 09:03 25 MG Cetirizine HCl (zyrTEC TAB) 10 mg QAM PO 01/03/17 09:00 02/02/17 08:59 01/05/17 09:03 10 MG Hydrochlorothiazide (Hydrochlorothiazide Tab) 25 mg QAM PO 01/03/17 09:00 02/02/17 08:59 01/05/17 09:03 25 MG Losartan Potassium (coZAAR TAB) 25 mg QAM PO 01/03/17 09:00 02/02/17 08:59 01/05/17 09:04 25 MG Calcium Carbonate (oS-Steven 500 TAB) 1,250 mg HS PO 01/02/17 21:00 02/01/17 20:59 01/04/17 21:01 1,250 MG Potassium Chloride (Klor-Con M10) 20 meq QAM PO 01/03/17 09:00 02/02/17 08:59 01/05/17 09:03 20 MEQ Albuterol (Ventolin Hfa Inhaler) 2 puffs Q4H PRN INH 01/02/17 21:00 02/01/17 20:59 Multivitamins/ Minerals (Multivitamin W/ Minerals Tab) 1 tab QAM PO 01/03/17 09:00 02/02/17 08:59 01/05/17 09:05 1 TAB Oseltamivir Phosphate (Tamiflu Susp) 30 mg BID PO 01/02/17 22:00 01/07/17 09:01 01/05/17 09:09 30 MG Fluticasone Propionate (Flonase Nasal [place]) 2 sprays DAILY NA 01/03/17 09:00 02/02/17 08:59 01/05/17 09:04 2 SPRAYS Ipratropium [place] (Atrovent 0.02% 0.5MG/2.5ML Neb) 0.5 mg Q6R INH 01/02/17 21:00 02/01/17 20:59 01/05/17 14:24 0.5 MG Levalbuterol (Xopenex 1.25MG/ 0.5ML Neb) 1.25 mg Q6R INH 01/02/17 21:00 02/01/17 20:59 01/05/17 14:24 1.25 MG Ipratropium [place] (Atrovent 0.02% 0.5MG/2.5ML Neb) 0.5 mg Q2H PRN INH 01/02/17 21:00 02/01/17 20:59 Levalbuterol (Xopenex 1.25MG/ 0.5ML Neb) 1.25 mg Q2H PRN INH 01/02/17 21:00 02/01/17 20:59 Metronidazole HCl 1 appln 1 appln QAM TOP 01/03/17 09:00 01/13/17 08:59 01/05/17 09:09 1 APPLN Methylprednisolone Sodium Succinate/ Syringe (Solu-Medrol IV/ Syringe) 0.64 ml @ 1.5 mls/min DAILY IV 01/05/17 09:00 02/04/17 08:59 01/05/17 09:09 1.5 MLS/MIN Levofloxacin (Levaquin Tab) 750 mg DAILY@11 PO 01/04/17 14:00 01/11/17 13:59 01/05/17 11:16 750 MG Objective Vital Signs Date Time Temp Pulse Resp B/P Pulse Ox O2 Delivery O2 Flow Rate FiO2 01/05/17 16:00 91 Nasal Cannula 2.0 01/05/17 15:10 36.9 68 18 134/90 91 2.0 01/05/17 14:26 67 16 93 Nasal Cannula 2.0 01/05/17 12:00 91 Nasal Cannula 2.0 01/05/17 09:13 91 01/05/17 08:00 91 Nasal Cannula 2.0 01/05/17 07:41 36.4 53 16 151/84 92 Nasal Cannula 2.0 01/05/17 07:20 86 16 93 Nasal Cannula 2.0 01/05/17 02:01 60 16 94 Nasal Cannula 2.0 01/05/17 00:24 36.6 69 18 150/75 90 Nasal Cannula 2.0 01/05/17 00:00 Nasal Cannula 2.0 01/04/17 19:46 36.5 76 18 137/77 93 Nasal Cannula 2.0 01/04/17 19:35 Nasal Cannula 2.0 01/04/17 19:01 65 16 94 Nasal Cannula 2.0 Physical Exam General Appearance: no apparent distress Respiratory/Chest: no respiratory distress, no accessory muscle use, + decreased breath sounds, + wheezing (end expiratory wheezing diffusely) Cardiovascular: regular rate, rhythm, no edema, no murmur Abdomen: normal bowel sounds, non tender, soft Extremities: normal inspection, no pedal edema Neurologic/Psychiatric: no motor/sensory deficits, alert, normal mood/affect Laboratory Results Last 24 Hours Test 01/05/17 07:15 White Blood Count 7.25 K/uL Red Blood Count 4.61 M/uL Hemoglobin 14.9 g/dL Hematocrit 45.2 % Mean Corpuscular Volume 98.0 fL Mean Corpuscular Hemoglobin 32.3 pg Mean Corpuscular Hemoglobin Concent 33.0 g/dl Platelet Count 244 K/uL Mean Platelet Volume 9.5 fL Neutrophils (%) (Auto) 60.8 % Lymphocytes (%) (Auto) 27.6 % Monocytes (%) (Auto) 11.0 % Eosinophils (%) (Auto) 0.3 % Basophils (%) (Auto) 0.0 % Neutrophils # (Auto) 4.41 K/uL Lymphocytes # (Auto) 2.00 K/uL Monocytes # (Auto) 0.80 K/uL Eosinophils # (Auto) 0.02 K/uL Basophils # (Auto) 0.00 K/uL RDW Standard Deviation 51.1 fL RDW Coefficient of Variation 14.2 % Immature Granulocyte % (Auto) 0.3 % Immature Granulocyte # (Auto) 0.02 K/uL Sodium Level 137 mmol/L Potassium Level 3.9 mmol/L Chloride Level 93 mmol/L Carbon Dioxide Level 39 mmol/L Anion Gap 5.0 mmol/L Blood Urea Nitrogen 20 mg/dl Creatinine 0.61 mg/dl Est Creatinine Clear Calc Drug Dose 68.4 ml/min Estimated GFR () 96.5 Estimated GFR (Non- 83.2 BUN/Creatinine Ratio 32.3 Random Glucose 87 mg/dl Calcium Level 8.9 mg/dl Magnesium Level 2.0 mg/dl Assessment and Plan This is an 86 year old female with PMH of COPD, allergic rhinitis, HTN, HLD, hx. of breast CA presents with shortness of breath and chest congestion - found to be Flu +, pneumonia as well as COPD exacerbation Influenza A+ Patient did receive influenza vaccine this year Found to be Influenza A + Tamiflu x 5 days total (end date: 01/07) Acute COPD exacerbation 01/05 continue IV steroids today, patient still wheezing and hypoxic with exertion may need two step in AM repeat CXR in AM 01/04 cut the IV steroids to daily, and will transition to PO on 01/05 continue nebs and oxygen as needed wean O2 as tolerated 01/03 currently requiring oxygen supplementation, more for symptoms Will taper IV steroids to q12 with the goal to convert to oral steroid taper in AM nebulizers around the clock and as needed we will attempt to wean oxygen today Community Acquired Pneumonia 01/05 C. Diff negative continue Levaquin 01/04 switch IV Rocephin + doxy to PO levaquin will check for c. diff left lower lobe infiltrate noted patient is started on IV Rocephin and doxycycline blood cultures pending, not bringing up sputum for sputum cultures no leukocytosis, afebrile, hemodynamically stable Goal is to convert to PO antibiotics, likely in AM Severe Enlarged Left Atrium echo performed and read today showing severely enlarged left atrium ~ 5cm possibly related to lung disease monitor in tele for now at risk for A. Fib - patient told of symptoms and to return to ER if she feels any palpitations will switch atenolol to metoprolol Allergic Rhinitis continue Zyrtec and flonase HTN blood pressure stable change atenolol to metoprolol Hyperglycemia Ha1c = 5.7%, monitor with steroid use DVT ppx subq heparin FULL CODE
[2017-01-05] MEDS: CALCIUM CARBONATE 1250MG TAB PO SCH (20:48)
[2017-01-05] MEDS: METOPROLOL TARTRATE 25 MG TAB PO SCH (21:04)
[2017-01-06] VITALS (9 sets, daily range): BP systolic 110–151; BP diastolic 68–77; PULSE 58–94; TEMP 36.6–36.8; O2SAT 92–98
[2017-01-06] MEDS: LEVALBUTEROL 1.25MG/0.5ML NEB INH SCH ×3 (02:33→14:15)
[2017-01-06] MEDS: IPRATROPIUM BROMIDE NEB SOLN 0.02% 2.5 ML VIAL INH SCH ×3 (02:33→14:15)
[2017-01-06 05:57] LABS: HEMATOCRIT 43.5 % (37-47); MEAN CELL VOLUME 97.8 fL (80-100); MEAN CORPUSCULAR HEMOGLOBIN 31.2 pg (25-34); MEAN PLATELET VOLUME 9.5 fL (7.4-10.4); PLATELET COUNT 246 K/uL (130-400); RED BLOOD COUNT 4.45 M/uL (4.2-5.4); WHITE BLOOD COUNT 7.29 K/uL (4.8-10.8)
[2017-01-06 06:36] LABS: BUN/CREATININE RATIO 31.2 (10-20); CALCIUM 8.6 mg/dl (8.5-10.1); CREATININE 0.68 mg/dl (0.60-1.20)
[2017-01-06] MEDS: METHYLPREDNISOLONE IV 40 MG in SYRINGE 0 ML IV SCH (08:08)
[2017-01-06] MEDS: CEROVITE ADV FORMULA TAB PO SCH (08:09)
[2017-01-06] MEDS: FLUTICASONE PROPIONATE NA SPR 16 GM BTL SCH (08:15)
[2017-01-06] MEDS: METOPROLOL TARTRATE 25 MG TAB PO SCH ×2 (08:16→21:51)
[2017-01-06] MEDS: POTASSIUM CHLORIDE 10 MEQ TABCR PO SCH (08:17)
[2017-01-06] MEDS: LOSARTAN POTASSIUM 25 MG TAB PO SCH (08:17)
[2017-01-06] MEDS: HYDROCHLOROTHIAZIDE 25 MG TAB PO SCH (08:18)
[2017-01-06] MEDS: ASPIRIN 81 MG ECTAB PO SCH (08:18)
[2017-01-06] MEDS: CETIRIZINE HCL 10 MG TAB PO SCH (08:18)
[2017-01-06] MEDS: METRONIDAZOLE 0.75% TOPICAL GEL 45 GM TUBE TOP SCH (08:20)
--- NOTE | 2017-01-06 09:01 | DIAGNOSTIC IMAGING REPORT ---
CHEST 2 VIEWS ROUTINE CLINICAL HISTORY: Abnormal chest x-ray. Follow-up examination. COMPARISON STUDY: 01/02/2017 FINDINGS: The heart is normal in size. There is moderate to marked elevation right hemidiaphragm. There is no lobar consolidation. There is no overt failure. There are linear bibasilar opacities likely atelectatic.[ IMPRESSION: 1. Persistent elevation of the right hemidiaphragm 2. Bibasilar atelectasis. 3. No evidence of lobar consolidation 4. No evidence of failure Electronically signed by: Nicholas Parker M.D. 01/06/2017 9:00 AM Dictated Date/Time: 01/06/2017 8:59 AM
[2017-01-06] MEDS: OSELTAMIVIR PHOSPHATE SUSP 30 MG/5 ML UDP PO SCH ×2 (09:36→22:06)
[2017-01-06] MEDS: HEPARIN SOD 5000 UNIT/0.5 ML CARP SQ SCH ×2 (09:37→22:06)
[2017-01-06] MEDS: LEVOFLOXACIN 750 MG TAB PO SCH (11:21)
[2017-01-06] MEDS ORDERED: PRED20TA2 PO (12:50)
--- NOTE | 2017-01-06 12:50 | Discharge Instructions ---
Discharge Instructions Admission Reason for Admission: Copd Exacerbation, Influenza A Discharge Discharge Diagnosis / Problem: INFLUENZA A /COPD EXACERBATION/LEFT ATRIAL DILATATION /HYPOXIA -2 L HOME 02 Discharge Goals Goal(s): Increase independence, Diagnostic testing, Therapeutic intervention Activity Recommendations Activity Limitations: resume your previous activity . Instructions / Follow-Up Instructions / Follow-Up HOSPITAL FOLLOW UP ON 01/11/2017 @ 8:[address] Dandre Mendez DO General Internal Medicine [facility] SEVERELY DILATED LEFT ATRIUM NOTED IN ECHO WILL NEED OUT PATIENT CARDIOLOGY FOLLOW UP YOUR BLOOD PRESSURE MEDICATION : ATENOLOL 25 MG DAILY -DISCONTINUED STARTED ON NEW MEDICATION METOPROLOL 12.5 MG TWICE DAILY Current Hospital Diet Patient's current hospital diet: AHA Diet (Heart Healthy) Discharge Diet Recommended Diet: AHA Diet (Heart Healthy) Pending Studies Studies pending at discharge: no Laboratory Results Hemoglobin A1c Test 01/03/17 07:24 Range/Units Estimated Average Glucose 117 mg/dl Hemoglobin A1c 5.7 H 4.5-5.6 % Medical Emergencies . Who to Call and When: Medical Emergencies: If at any time you feel your situation is an emergency, please call 911 immediately. . Non-Emergent Contact Non-Emergency issues call your: Primary Care Provider . . "Provider Documentation" section prepared by Jennifer Naranjo. VTE Core Measure Inpt VTE Proph given/why not?: Unfractionated heparin SQ
[2017-01-06] MEDS ORDERED: TMFUDL30 PO (12:52)
[2017-01-06] MEDS ORDERED: ZTHM250 PO (12:52)
[2017-01-06] MEDS: LOPERAMIDE HCL 2 MG CAP PO PRN (14:12)
[2017-01-06] MEDS: AZITHROMYCIN 250 MG TAB PO SCH (14:13)
[2017-01-06] MEDS: ACETAMINOPHEN 325 MG TAB PO PRN ×2 (14:19→21:54)
--- NOTE | 2017-01-06 15:10 | Progress Note ---
Internal Med Progress Note Date of Service: Jan 06, 2017. Provider Documentation: SUBJECTIVE: feels much better no cough or SOB , afebrile does not have WEBSTER still requiring 2 L 02 via nasal canula ( not on home 02 prior ) OBJECTIVE: Vital Signs-as noted below Exam: General-no sign of distress Eyes-sclera non icteric , PERRLA/EOMI ENT-NAD Neck-no thyromegaly Lungs-CTA, no wheeze or rales Heart-regular S1/S2 Abdomen-soft, non tender Extremities-no rash or deformity , tenderness on palpation on back of knee / upper calf are both legs , no swelling or edema Neuro-no focal neurological deficit Lab data as noted below. ASSESSMENT & PLAN: COPD EXACERBATION : due to Influenza /community acquired pneumonia respiratory status improved no wheeze or rales will wean down Steroids to oral prednisone still requiring supplemental 02 ( 2 L via nasal canula ) will order 2 step exercise tomorrow prior to discharge INFLUENZA A : continue Tamiflu 30 mg PO BID for 5 days ( started on 01/02/17 ) dose adjusted for renal clearance /CKD ) GFR ~60 HYPOXIA : due to above found to have WEBSTER PT eval noted: Patient displayed some SOB with activity. spO2 dropped to 77% after the first walk, and was at 87% two minutes later, and then was at 95% another two minutes later. spO2 dropped to 81% after the second walk, and was at 88% two minutes later. 2 step exercise prior to discharge to assess home 02 needs BILATERAL LOWER EXT CALF PAIN /DISCOMFORT possible due to local muscle inflammatory response due to viral symptoms lower ext Doppler negative for DVT ordered for PRN Tylenol -NSAID's avoided due to CKD apply heat PRN topical analgesics SEVERELY ENLARGED LEFT ATRIUM ECHO 01/05/17 : Left ventricular systolic function is normal. Ejection Fraction = 60-65%. There is trace mitral regurgitation. There is mild tricuspid regurgitation. Mild pulmonary hypertension is present. The PA systolic pressure is calculated to be 48 mm Hg. The left atrium is severely dilated ~ 5 CM Grade I diastolic dysfunction, (abnormal relaxation pattern). possibly related to lung disease at risk for A. Fib - patient told of symptoms and to return to ER if she feels any palpitations pt started on Metoprolol will need out pt cardiology follow up COMMUNITY ACQUIRED PNEUMONIA : Cxray shows resolution of left lower lobe infiltrate complete 5 days of Abx DIARRHEA : possible due to Viral syndrome Stool C diff negative PRN Imodium symptom has improved pt is asked to drink plenty of fluid DVT PROPHYLAXIS sub q heparin DISPOSITION Possible discharge home tomorrow 2 step pulse oximetry ordered may need set up for home 02 social service following for Discharge planning Vital Signs: Date Time Temp Pulse Resp B/P Pulse Ox O2 Delivery O2 Flow Rate FiO2 01/06/17 14:17 36.7 84 18 110/69 98 2.0 01/06/17 08:30 92 Nasal Cannula 2.0 01/06/17 08:02 36.6 94 18 133/76 92 Nasal Cannula 2.0 01/06/17 07:55 58 16 93 Nasal Cannula 2.0 01/06/17 02:33 70 16 93 Nasal Cannula 2.0 01/06/17 00:00 Nasal Cannula 2.0 01/05/17 23:57 36.6 71 18 139/83 90 Nasal Cannula 2.0 01/05/17 20:08 79 16 92 Room Air 01/05/17 19:59 Nasal Cannula 2.0 01/05/17 16:00 91 Nasal Cannula 2.0 Lab Results: Results Past 24 Hours Test 01/06/17 05:00 Range/Units White Blood Count 7.29 4.8-10.8 K/uL Red Blood Count 4.45 4.2-5.4 M/uL Hemoglobin 13.9 12.0-16.0 g/dL Hematocrit 43.5 37-47 % Mean Corpuscular Volume 97.8 80-100 fL Mean Corpuscular Hemoglobin 31.2 25-34 pg Mean Corpuscular Hemoglobin Concent 32.0 32-36 g/dl RDW Standard Deviation 50.4 36.4-46.3 fL RDW Coefficient of Variation 14.2 11.5-14.5 % Platelet Count 246 130-400 K/uL Mean Platelet Volume 9.5 7.4-10.4 fL Sodium Level 139 136-145 mmol/L Potassium Level 4.0 3.5-5.1 mmol/L Chloride Level 95 98-107 mmol/L Carbon Dioxide Level 38 21-32 mmol/L Anion Gap 6.0 3-11 mmol/L Blood Urea Nitrogen 21 7-18 mg/dl Creatinine 0.68 0.60-1.20 mg/dl Est Creatinine Clear Calc Drug Dose 60.3 ml/min Estimated GFR () 92.4 Estimated GFR (Non- 79.8 BUN/Creatinine Ratio 31.2 10-20 Random Glucose 97 70-99 mg/dl Calcium Level 8.6 8.5-10.1 mg/dl
[2017-01-06] MEDS ORDERED: LPR25 PO (15:36)
[2017-01-06] MEDS ORDERED: IPRATROPIUM BROMIDE NEB SOLN 0.02% 2.5 ML VIAL INH PRN (21:00)
[2017-01-06] MEDS ORDERED: LEVALBUTEROL 1.25MG/0.5ML NEB INH PRN (21:00)
[2017-01-06] MEDS: CALCIUM CARBONATE 1250MG TAB PO SCH (21:51)
[2017-01-07 02:16] VITALS: O2SAT 92
[2017-01-07] MEDS: FLUTICASONE PROPIONATE NA SPR 16 GM BTL SCH (07:33)
[2017-01-07] MEDS: CEROVITE ADV FORMULA TAB PO SCH (07:34)
[2017-01-07] MEDS: POTASSIUM CHLORIDE 10 MEQ TABCR PO SCH (07:34)
[2017-01-07] MEDS: CETIRIZINE HCL 10 MG TAB PO SCH (07:35)
[2017-01-07] MEDS: ASPIRIN 81 MG ECTAB PO SCH (07:35)
[2017-01-07] MEDS: HYDROCHLOROTHIAZIDE 25 MG TAB PO SCH (07:35)
[2017-01-07] MEDS: LOSARTAN POTASSIUM 25 MG TAB PO SCH (07:35)
[2017-01-07] MEDS: METOPROLOL TARTRATE 25 MG TAB PO SCH (07:36)
[2017-01-07] MEDS: AZITHROMYCIN 250 MG TAB PO SCH (07:37)
[2017-01-07] MEDS: METRONIDAZOLE 0.75% TOPICAL GEL 45 GM TUBE TOP SCH (07:37)
[2017-01-07 07:50] VITALS: BP 159/64; PULSE 63; TEMP 36.6; O2SAT 92
[2017-01-07] MEDS: OSELTAMIVIR PHOSPHATE SUSP 30 MG/5 ML UDP PO SCH (07:56)
[2017-01-07] MEDS: LOPERAMIDE HCL 2 MG CAP PO PRN (07:56)
[2017-01-07 08:30] VITALS: O2SAT 92
[2017-01-07] MEDS: HEPARIN SOD 5000 UNIT/0.5 ML CARP SQ SCH (10:28)
--- NOTE | 2017-01-07 11:21 | Progress Note ---
Internal Med Progress Note Date of Service: Jan 07, 2017. Provider Documentation: SUBJECTIVE: SOB has improved , still has WEBSTER, hypoxic with activity 2 step exercise noted -requiring 2 L 02 via nasal canula cont script given for home 02 no cough no fever or chills stable to be discharged home today OBJECTIVE: Vital Signs-as noted below Exam: General-no sign of distress Eyes-sclera non icteric , PERRLA/EOMI ENT-NAD Neck-no thyromegaly Lungs-CTA, no wheeze or rales Heart-regular S1/S2 Abdomen-soft, non tender Extremities-no rash or deformity , tenderness on palpation on back of knee / upper calf are both legs , no swelling or edema Neuro-no focal neurological deficit Lab data as noted below. ASSESSMENT & PLAN: COPD EXACERBATION : due to Influenza /community acquired pneumonia respiratory status improved no wheeze or rales pt will be discharged home with PO prednisone taper 2 step pulse oximetry shows -Hypoxia /desaturation recommend 2 L 02 via nasal canula cont script given for home 02 INFLUENZA A : continue Tamiflu 30 mg PO BID for 5 days ( started on 01/02/17 ) dose adjusted for renal clearance /CKD ) GFR ~60 HYPOXIA : due to above Patient displayed some SOB with activity. 2 step exercise shows 2 L 02 needed cont all the time script given for home 02 ECHO 01/05/17 : Left ventricular systolic function is normal. Ejection Fraction = 60-65%. There is trace mitral regurgitation. There is mild tricuspid regurgitation. Mild pulmonary hypertension is present. The PA systolic pressure is calculated to be 48 mm Hg. The left atrium is severely dilated ~ 5 CM Grade I diastolic dysfunction, (abnormal relaxation pattern). possibly related to lung disease at risk for A. Fib - patient told of symptoms and to return to ER if she feels any palpitations pt started on Metoprolol Out pt cardiology follow up COMMUNITY ACQUIRED PNEUMONIA : Cxray shows resolution of left lower lobe infiltrate complete 5 days of Abx -with PO Zithromax DVT PROPHYLAXIS sub q heparin DISPOSITION discharge home today Vital Signs: Date Time Temp Pulse Resp B/P Pulse Ox O2 Delivery O2 Flow Rate FiO2 01/07/17 12:04 36.6 63 20 92 Nasal Cannula 01/07/17 08:30 92 Room Air 01/07/17 07:50 36.6 63 20 159/64 92 Room Air 01/07/17 02:16 92 Nasal Cannula 1.0 2/26/17 00:00 Nasal Cannula 1.0 01/06/17 23:53 36.8 65 18 119/68 94 1.0 01/06/17 21:48 80 16 151/77 95 Nasal Cannula 1.0 01/06/17 16:00 98 Nasal Cannula 2.0
--- NOTE | 2017-01-07 11:21 | Discharge Summary ---
Discharge Summary Date of Service Jan 07, 2017. Discharge Summary Admission Date: Jan 02, 2017 at 18:02 Discharge Date: Jan 07, 2017 Discharge Disposition: Home Principal Diagnosis: INFLUENZA A /COPD EXACERBATION/LEFT ATRIAL DILATATION /HYPOXIA -REQUIRING 2 L HOME 02 Procedures: ECHO : The left ventricular wall motion is normal. Left ventricular systolic function is normal. Ejection Fraction = 60-65%. There is trace mitral regurgitation. There is mild tricuspid regurgitation. Mild pulmonary hypertension is present. The PA systolic pressure is calculated to be 48 mm Hg. The left atrium is severely dilated. Grade I diastolic dysfunction, (abnormal relaxation pattern). Medication Reconciliation New Medications: Prednisone (Prednisone Tab) 20 Mg Tab 0 PO DAILY, #7 TAB 2 TABS DAILY FOR 2 DAYS, THEN 1 TAB DAILY FOR 2 DAYS, THEN 1/2 TAB DAILY FOR 2 DAYS. Azithromycin (Azithromycin) 250 Mg Tab 250 MG PO QAM for 1 Day, #1 TAB Metoprolol Tartrate (Lopressor) 25 Mg Tab 12.5 MG PO BID for 30 Days, #60 TAB 5 Refills Oseltamivir Phosphate (Tamiflu) 6 Mg/Ml Erica 30 MG PO BID for 1 Day, #2 TABS Continued Medications: Albuterol Sulfate (Proair Respiclick) 108 Mcg/Act Aer 2 PUFFS INH Q4 PRN for Wheezing Aspirin (Aspirin 81) 81 Mg Tab 81 MG PO QAM WITH FOOD Cetirizine (Zyrtec) 10 Mg Tab 10 MG PO QAM, TAB Hydrochlorothiazide (Hctz) 25 Mg Tab 25 MG PO QAM, TAB Losartan Potassium (Cozaar) 25 Mg Tab 25 MG PO QAM, TAB Metronidazole (Topical) (Metrogel) 0.75 % Gel 1 APPLN TOP HS Multiple Vitamins W/ Minerals (Preservision Areds 2) 1 Cap Cap 2 CAP PO QAM Oyster Shell (Calcium) 500 Mg Tab 1000 MG PO HS Potassium Chloride (Micro-K Ext Rel) 10 Meq Capcr 20 MEQ PO QAM, CAP Discontinued Medications: Atenolol (Tenormin) 25 Mg Tab 25 MG PO QAM, TAB Admission Information HPI (per Admitting provider): DATE OF ADMISSION: 01/02/2017 CHIEF COMPLAINT: Shortness of breath. HISTORY OF PRESENT ILLNESS: This is an 86-year-old female with past medical history significant for COPD, hypertension, hyperlipidemia, hyperglycemia, history of breast cancer, neuropathy, esophageal stricture, history of allergic rhinitis, allergic urticaria presents with shortness of breath and cough. The patient says she was in [place]; she flew back on December 22. Since then she is having chest congestion, shortness of breath and cough and she saw her family doctor and she was treated with a Z-FILIBERTO for 5 days, but symptoms is not getting better, not improving and getting worse, so she called her family doctor and she was advised to come to the ER. In ER, she was found to have left lower lobe infiltrate and also influenza positive. The patient is wheezing. Denies any chest pain. Denies fevers, denies headaches, denies blurred vision, no dizziness, no nausea, no vomiting. During these episodes, she has couple of episodes of diarrhea, but apparently okay NOW. Appetite is okay. Resting comfortably currently and hemodynamically stable. ALLERGIES: ENVIRONMENTAL POLLEN PAST MEDICAL HISTORY: As mentioned above. PAST SURGICAL HISTORY: Right total knee arthroplasty, left total knee arthroplasty, colonoscopy with removal of an adenomatous tissue, cystoscopy, skin abscess drainage, EGD with biopsies, EGD with transendoscopic dilatation, partial mastectomy, ruptured rotator cuff repair. MEDICATIONS: The patient is on Flonase 2 sprays in each nostril daily, potassium chloride ER 20 mEq p.o. daily, atenolol 25 mg p.o. daily, hydrochlorothiazide 25 mg p.o. daily, Cozaar 25 mg p.o. daily, albuterol 2 puffs every 4 hours p.r.n., amoxicillin 4 capsules by mouth 1 hour prior to dental appointment, PreserVision 2 capsules daily, aspirin 81 mg p.o. daily, Zyrtec 10 mg p.o. daily, calcium 1000 mg p.o. daily. FAMILY HISTORY: Significant for father had colon cancer, diabetes and heart disorder. Mother at the age of 90 and father at age of 80. SOCIAL HISTORY: . Former smoker, quit in 1968, smoked 1 pack a day for 10 years. Alcohol 1 martini per day. No drug use. Physical Exam (per Admitting): REVIEW OF SYMPTOMS: As per HPI. Rest of review of systems negative. PHYSICAL EXAMINATION: GENERAL: The patient is of moderate build, not in distress. VITAL SIGNS: Temperature 36.5, pulse 84, respiratory rate 20, blood pressure 152/75, oxygen 92% on 3 liters. HEENT: No pallor, no icterus. Pupils equal, round, and reactive to light. NECK: No JVD, no neck masses, no carotid bruits. CARDIOVASCULAR: S1, S2 heard, regular rate and rhythm, no murmur, no gallop. RESPIRATORY SYSTEM: Clear to auscultation bilaterally. Bilateral wheezing heard. No crackles. ABDOMEN: Soft, bowel sounds present. Nontender. No distention. CENTRAL NERVOUS SYSTEM: Cranial nerves II-XII grossly intact. Nonfocal. EXTREMITIES: Pedal edema present. Hospital Course COPD EXACERBATION : due to Influenza /community acquired pneumonia respiratory status improved no wheeze or rales pt will be discharged home with PO prednisone taper 2 step pulse oximetry shows -Hypoxia /desaturation recommend 2 L 02 via nasal canula cont script given for home 02 INFLUENZA A : continue Tamiflu 30 mg PO BID for 5 days ( started on 01/02/17 ) dose adjusted for renal clearance /CKD ) GFR ~60 HYPOXIA : due to above Patient displayed some SOB with activity. 2 step exercise shows 2 L 02 needed cont all the time script given for home 02 ECHO 01/05/17 : Left ventricular systolic function is normal. Ejection Fraction = 60-65%. There is trace mitral regurgitation. There is mild tricuspid regurgitation. Mild pulmonary hypertension is present. The PA systolic pressure is calculated to be 48 mm Hg. The left atrium is severely dilated ~ 5 CM Grade I diastolic dysfunction, (abnormal relaxation pattern). possibly related to lung disease at risk for A. Fib - patient told of symptoms and to return to ER if she feels any palpitations pt started on Metoprolol Out pt cardiology follow up COMMUNITY ACQUIRED PNEUMONIA : Cxray shows resolution of left lower lobe infiltrate complete 5 days of Abx -with PO Zithromax DVT PROPHYLAXIS sub q heparin DISPOSITION discharge home today Total time spent on discharge = 35 mins This includes examination of the patient, discharge planning, medication reconciliation, and communication with other providers. Discharge Instructions Admission Reason for Admission: Copd Exacerbation, Influenza A Discharge Discharge Diagnosis / Problem: INFLUENZA A /COPD EXACERBATION/LEFT ATRIAL DILATATION /HYPOXIA -REQUIRING 2 L HOME 02 Discharge Goals Goal(s): Increase independence, Diagnostic testing, Therapeutic intervention Activity Recommendations Activity Limitations: resume your previous activity . Instructions / Follow-Up Instructions / Follow-Up HOSPITAL FOLLOW UP ON 01/11/2017 @ 8:[address] Dandre Mendez, DO General Internal Medicine [facility] SEVERELY DILATED LEFT ATRIUM NOTED IN ECHO WILL NEED OUT PATIENT CARDIOLOGY FOLLOW UP YOUR BLOOD PRESSURE MEDICATION : ATENOLOL 25 MG DAILY -DISCONTINUED STARTED ON NEW MEDICATION METOPROLOL 12.5 MG TWICE DAILY Current Hospital Diet Patient's current hospital diet: AHA Diet (Heart Healthy) Discharge Diet Recommended Diet: AHA Diet (Heart Healthy) Pending Studies Studies pending at discharge: no Laboratory Results Hemoglobin A1c Test 01/03/17 07:24 Range/Units Estimated Average Glucose 117 mg/dl Hemoglobin A1c 5.7 H 4.5-5.6 % Medical Emergencies . Who to Call and When: Medical Emergencies: If at any time you feel your situation is an emergency, please call 911 immediately. . Non-Emergent Contact Non-Emergency issues call your: Primary Care Provider . . "Provider Documentation" section prepared by Jennifer Naranjo. VTE Core Measure Inpt VTE Proph given/why not?: Unfractionated heparin SQ Additional Copies To Dandre Mendez, [email or web address]
[2017-01-07 12:04] VITALS: BP 159/64; PULSE 63; TEMP 36.6; O2SAT 92
== END 2017-01-07 14:53 | disposition home health service (06) | DRG 190 ==
LOC: ENRESERVDT → ENRESERVTM → EDBD 14:40 → C.EDB 14:41 → UNDOADMIN 18:02 → C.MED 18:02 → C.4E 01-05 22:52
PROVIDERS: ADMIT Family Medicine; ATTEND Hospitalist
DX: J44.1 Chronic obstructive pulmonary disease with (acute) exacerbation (principal); J10.00 Influenza due to other identified influenza virus with unspecified type of pneumonia; J10.2 Influenza due to other identified influenza virus with gastrointestinal manifestations; R09.02 Hypoxemia; E87.6 Hypokalemia; R60.0 Localized edema; I51.7 Cardiomegaly; I27.2 Other secondary pulmonary hypertension; M79.1 Myalgia; I10 Essential (primary) hypertension; J30.9 Allergic rhinitis, unspecified; R73.9 Hyperglycemia, unspecified; Z99.81 Dependence on supplemental oxygen; Z96.653 Presence of artificial knee joint, bilateral; Z79.82 Long term (current) use of aspirin; Z79.899 Other long term (current) drug therapy; Z87.891 Personal history of nicotine dependence

== ENCOUNTER → 2017-03-05 | Outpatient (CLI) | payer OTHER, MEDICARE ==
[~2017-03-05] MED LIST: ALBU18002 INH; ASPI-435 PO; AZIT-57 PO; CETI10TA84 PO; HYDR25TA4 PO; LOSA1TAB PO; LPR25 PO; METR0.7527 TOP; MULT60CA PO; OYST500T47 PO; POTA10CA28 PO; PRED20TA2 PO; TMFUDL30 PO
--- NOTE | 2017-03-05 16:45 | MAMMOGRAPHY REPORT ---
BILATERAL DIGITAL SCREENING MAMMOGRAM TOMOSYNTHESIS WITH CAD: 03/05/2017 CLINICAL HISTORY: Routine screening. Patient has no complaints. TECHNIQUE: Breast tomosynthesis in addition to standard 2D mammography was performed. Current study was also evaluated with a Computer Aided Detection (CAD) system. COMPARISON: Comparison is made to exams dated: 02/29/2016 mammogram, 02/25/2015 mammogram, 02/24/2014 mammogram, 02/21/2012 mammogram, 02/06/2011 mammogram, and 02/04/2010 mammogram - [facility]. BREAST COMPOSITION: There are scattered areas of fibroglandular density in both breasts. FINDINGS: There is evidence of prior surgery within the right breast. There is expected architectu ral distortion with associated surgical clips in the 12:00 and central right breast as well as asymm etry of the size of the breasts, left guided right. There are mild vascular calcifications bilatera lly. Stable benign-appearing calcifications in the lateral left breast. No suspicious mass, cayetano ectural distortion or cluster of new, suspicious microcalcifications is seen. IMPRESSION: ACR BI-RADS CATEGORY 1: NEGATIVE There is no mammographic evidence of malignancy. A 1 year screening mammogram is recommended. The p atient will receive written notification of the results. Approximately 10% of breast cancers are not detected with mammography. A negative mammographic repor t should not delay biopsy if a clinically suggestive mass is present. Rena Rodas M.D. ay/:03/05/2017 16:41:29 Hammerer: Chely PERAZA(Ricky)(Tanya), [facility] letter sent: Normal 1/2 BI-RADS Code: ACR BI-RADS Category 1: Negative
== END | disposition home or self-care (01) ==
LOC: C.MAMM 10:16
PROVIDERS: ATTEND Internal Medicine
DX: Z12.31 Encounter for screening mammogram for malignant neoplasm of breast (principal); Z85.3 Personal history of malignant neoplasm of breast

== ENCOUNTER → 2018-03-07 | Outpatient (CLI) | payer OTHER, MEDICARE ==
[~2018-03-07] MED LIST changes: -PRED20TA2 PO
--- NOTE | 2018-03-07 14:44 | MAMMOGRAPHY REPORT ---
BILATERAL DIGITAL SCREENING MAMMOGRAM TOMOSYNTHESIS WITH CAD: 03/07/2018 CLINICAL HISTORY: Asymptomatic. Personal history of breast cancer. TECHNIQUE: Breast tomosynthesis in addition to standard 2D mammography was performed. Current study was also evaluated with a Computer Aided Detection (CAD) system. COMPARISON: Comparison is made to exams dated: 03/05/2017 mammogram, 02/29/2016 mammogram, 02/25/2015 m ammogram, 02/24/2014 mammogram, 02/21/2013 mammogram, and 02/21/2012 mammogram - [facility] enter. BREAST COMPOSITION: There are scattered areas of fibroglandular density in both breasts. FINDINGS: No suspicious masses, calcifications, or areas of architectural distortion are noted in ei ther breast. There has been no significant interval change compared to prior exams. There are stable postsurgical changes in the right breast. Bilateral benign-appearing calcifications are not signifi cantly changed. Round circumscribed benign-appearing mass in the left upper outer quadrant is stable compared to multiple prior exams. IMPRESSION: ACR BI-RADS CATEGORY 2: BENIGN There is no mammographic evidence of malignancy. A 1 year screening mammogram is recommended. The pa tient will receive written notification of the results. Approximately 10% of breast cancers are not detected with mammography. A negative mammographic report should not delay biopsy if a clinically suggestive mass is present. Tsering Cook M.D. ah/:03/07/2018 12:26:10 Electrical Manager: Rhiannon PITTS)(Tanya), [facility] letter sent: Normal 1/2 BI-RADS Code: ACR BI-RADS Category 2: Benign
== END | disposition home or self-care (01) ==
LOC: C.MAMM 09:36
PROVIDERS: ATTEND Internal Medicine
DX: Z12.31 Encounter for screening mammogram for malignant neoplasm of breast (principal); Z85.3 Personal history of malignant neoplasm of breast

== ENCOUNTER 2019-02-21 08:17 | Inpatient (IN) ==
[2019-02-21] MEDS ORDERED: ALBUT/IPRATROP 3MG/0.5MG NEB 3 ML VIAL NEB STA (08:59)
[2019-02-21] MEDS ORDERED: SODIUM CHLORIDE 0.9% 1000ML 500 ML IV SCH (09:15)
--- NOTE | 2019-02-21 09:28 | Emergency Department Note ---
ED Visit Note I took a history and examined the patient. I coordinated management of the patient with Dr. Aguillon . : Pneumonia Qualifiers: Pneumonia type: due to unspecified organism Laterality: left Lung location: l ower lobe of lung Qualified Code(s): J18.1 - Lobar pneumonia, unspecified organism
[2019-02-21] MEDS ORDERED: methylPREDNISolone 125 MG/2 ML VIAL IV STA (09:30)
[2019-02-21 09:33] LABS: Base Excess VBG 15.4 mEq/L; Oxygen Saturation VBG 64.2 %; pH VBG 7.33 (7.36-7.41)
--- NOTE | 2019-02-21 09:35 | XRay Report ---
XR chest 1V portable CLINICAL HISTORY: 89 years-old Female presenting with Shortness of breath. TECHNIQUE: Portable upright AP view of the chest was obtained. COMPARISON: 01/02/2017. FINDINGS: Atherosclerosis of the aortic arch. Cardiac silhouette enlarged. Elevation of the right hemidiaphragm with resultant low lung volume. Mild pulmonary vascular prominence and bronchial wall cuffing eviden t on the left. Stable to slight interval increase in left basilar opacity with persistent small left pleural effusion. No pneumothorax. Degenerative changes of the glenohumeral joints. IMPRESSION: 1. Stable to slightly increased left basilar infiltrate. Infection/pneumonia is not excluded. Howeve r, given posterior basilar prominence of bronchial wall cuffing, this could represent asymmetric pulm onary edema. 2. Smaller pleural effusion. Electronically signed by: Carlos Carroll M.D. 02/21/2019 9:34 AM
[2019-02-21 09:39] LABS: Basophils # (auto) 0.01 K/uL (0-0.2); Basophils % (auto) 0.2 %; Eosinophils # (auto) 0.13 K/uL (0-0.5); Eosinophils % (auto) 2.6 %; Hematocrit (blood only) 44.1 % (37-47); Hemoglobin 13.4 g/dL (12.0-16.0); Immature Granulocytes # (auto) 0.01 K/uL (0.00-0.02); Immature Granulocytes % (auto) 0.2 %; Mean Corpuscular Hgb Conc 30.4 g/dL (32-36); Mean Corpuscular Volume 102.3 fL (80-100); Mean Platelet Volume 9.5 fL (7.4-10.4); Monocytes # (auto) 0.36 K/uL (0.11-0.59); Monocytes % (auto) 7.2 %; Neutrophils % (auto) 75.8 %; Platelet Count 201 K/uL (130-400); RDW Coefficient of Variation 13.4 % (11.5-14.5); RDW Standard Deviation 50.3 fL (36.4-46.3); Red Blood Count 4.31 M/uL (4.2-5.4); White Blood Count 5.01 K/uL (4.8-10.8)
[2019-02-21 10:03] LABS: Albumin Globulin Ratio 1.2 (0.9-2); Albumin Level 3.9 gm/dl (3.4-5.0); BUN Creatinine Ratio 25.2 (10-20); Bilirubin,Total 0.5 mg/dl (0.2-1); Calcium 9.2 mg/dl (8.5-10.1); Creatinine Clr Calc Pharmacy 75.6 ml/min; Est GFR (African American) 98.9; Est GFR (Non-African American) 85.4; Globulin 3.3 gm/dl (2.5-4.0); Potassium 3.8 mmol/L (3.5-5.1); Total Protein 7.2 gm/dl (6.4-8.2)
[2019-02-21] MEDS ORDERED: LEVOFLOXACIN/D5W 750 MG/150 ML BAG IV STA (10:20)
[2019-02-21] MEDS ORDERED: ONDANSETRON INJ 2 MG/ML 2 ML VIAL IV PRN (12:31)
[2019-02-21] MEDS ORDERED: NITROGLYCERIN SL 0.4 MG/TAB TAB SL PRN (12:31)
[2019-02-21] MEDS ORDERED: ALBUTEROL HFA 8 GM INHALER INH PRN (12:31)
[2019-02-21 13:26] LABS: Prothrombin Time 9.9 Seconds (9.0-12.0)
[2019-02-21] MEDS ORDERED: LEVALBUTEROL 1.25MG/0.5ML NEB INH SCH (13:30)
--- NOTE | 2019-02-21 13:44 | History and Physical Report ---
DATE OF ADMISSION: 02/21/2019 CHIEF COMPLAINT: Shortness of breath. HISTORY OF PRESENT ILLNESS: This is an 89-year-old female with past medical history significant for COPD, oxygen dependent, chronic respiratory failure, uses 2 liters oxygen all the time, hyperlipidemia, allergic rhinitis, hypertension, left atrial enlargement, history of esophageal stricture, history of osteoarthritis, allergic urticaria, hyperglycemia, history of breast cancer, presents with shortness of breath. The patient says since last couple of days she was getting more short of breath and cough which was dry cough, she walks without help and sometimes uses a cane, walking a few steps making her short of breath. She can sleep flat, but every 2 hours she was waking up with short of breath.Patient lives alone. She takes care of herself. She can drive. She has friends. She denies any fever or chills. She has some headache. She gets dizzy when she stands very quickly. She has macular degeneration and she gets eye injections. No earache. She has runny nose that she attributes to her oxygen and says there is no change in her runny nose. No sore throat, no difficulty swallowing, no chest pain, no nausea, no abdominal pain. Occasionally, she gets diarrhea. No blood in the stools, no black stools. Normal bladder movements. No hematuria, no burning micturition. She says once in a while her leg swells. No rash. She says that she has hemorrhoids and she bruises easily when she bumps. Currently, she received a hour long neb treatment and Solu-Medrol in ER and resting comfortably and hemodynamically stable. ALLERGIES: ENVIRONMENTAL POLLENS. PAST MEDICAL HISTORY: As mentioned above. PAST SURGICAL HISTORY: Right total knee arthroplasty, left total knee arthroplasty, colonoscopy with erythematous tissue removal, cystoscopy, I and D of sebaceous cyst of the back, EGD with dilatation,injection on the eyes bilateral, partial mastectomy, cataract surgery, repair of the rotator cuff. MEDICATIONS: The patient is on Cetrizine 10 mg p.o. daily, albuterol 2 puffs every 4 hours p.r.n., hydrochlorothiazide 25 mg p.o. daily, losartan 25 mg p.o. daily, metoprolol 12.5 mg p.o. b.i.d., potassium chloride 20 mg p.o. daily, Eylea as directed by ophthalmology every 6 weeks, oxygen 2 liters all the time, PreserVision AREDS 2 capsules daily, aspirin 81 mg p.o. daily, calcium 1000 mg p.o. daily. FAMILY HISTORY: Significant for father who had colon cancer, diabetes. Mother has glaucoma. Father has heart disorder. SOCIAL HISTORY: , former smoker, quit in 1968, smoked an average of 1 pack a day for 10 years. Alcohol, 1 martini per day. No drug use. Lives alone. REVIEW OF SYMPTOMS: As per HPI. Rest of review of systems is negative. PHYSICAL EXAMINATION: GENERAL: The patient is moderate build, not in acute distress. VITAL SIGNS: Temperature 36.5, pulse 95, respiratory rate 20, blood pressure 136/63, oxygen 95% on 2 liters. HEENT: No pallor, no icterus. Pupils equal, round, react to light. NECK: No JVD, no neck mass, no carotid bruit. CARDIOVASCULAR: S1, S2 heard, regular rate and rhythm, no murmur, no gallop. RESPIRATORY SYSTEM: Normal AP diameter. No accessory muscle use. No wheezing, no rhonchi. ABDOMEN: Soft, bowel sounds present. Nontender. No distention. CENTRAL NERVOUS SYSTEM: Cranial nerves II-XII grossly intact. Nonfocal. EXTREMITIES: Trace edema. No erythema seen. LABORATORY DATA: WBC 5, hemoglobin 13.4, hematocrit 44.1, platelets 12,201. Venous blood gases, pH 7.33, pCO2 of 89, pO2 of 33, bicarbonate 46. Sodium 135, potassium 3.8, chloride 90, bicarbonate 40, BUN 13, creatinine 0.5, serum glucose 124, calcium 9.2, total bilirubin 0.5, AST 15, ALT 19, alkaline phosphatase 76. BNP 322. Influenza A and B negative. Chest x-ray, stable to slightly increased left basilar infiltrate, infection pneumonia is not excluded. However, given posterior basilar prominence of bronchial wall cuffing, this could represent asymmetric pulmonary edema, small pleural effusion. EKG: Sinus rhythm with PVCs at a rate of 70, incomplete right bundle-branch block, left axis deviation, no significant change from previous EKG. ASSESSMENT AND PLAN: This 89-year-old female presents with chronic obstructive pulmonary disease exacerbation, possible pneumonia, presents with shortness of breath for the last 2 days and cough. 1. Possible chronic obstructive pulmonary disease exacerbation. Chest x-ray, slightly increased left basilar infiltrate, possibly community-acquired pneumonia. The patient received steroid and neb treatment in the ER. Currently, she is not wheezing on exam, but will admit to med/surg tele, IV Solu-Medrol 40 t.i.d., nebs around the clock and p.r.n. We will place on Rocephin and doxycycline and monitor for response. PT/OT prior to discharge.Follow FLU PCR. May need to do 2 step prior to discharge. On Home oxygen 2lts all the time. 2. Hypertension. Continue hydrochlorothiazide, losartan and Lopressor. Monitor the blood pressure. 3. History of macular degeneration, gets eye injections every 6 weeks with ophthalmology. 4. History of allergic rhinitis and allergic urticaria on cetirizine daily. 5. Osteoarthritis, stable. 6. History of breast cancer, status post right partial mastectomy in 1998. 7. Hyperglycemia, currently getting steroids. We will follow blood sugars and follow HbA1c levels. 8. Deep vein thrombosis prophylaxis, SCDs and heparin subQ. 9. Disposition: Admit to med/surg tele, PT and OT prior to discharge. Social service will help with discharge planning. Level 1 full code. MTDD
[2019-02-21] MEDS ORDERED: XOPENEX/ATROVENT 1.25mg/0.5MG NEB COMBO NEB SCH (14:00)
[2019-02-21] MEDS: cefTRIAXone SODIUM 1,000 MG in DEXTROSE 5% 50 ML IV SCH (14:27)
[2019-02-21] MEDS: IPRATROPIUM BROMIDE NEB SOLN 0.02% 2.5 ML VIAL INH SCH ×2 (14:31→19:05)
[2019-02-21] MEDS: LEVALBUTEROL 1.25MG/0.5ML NEB INH SCH ×2 (14:31→19:05)
--- NOTE | 2019-02-21 15:13 | Emergency Department Note ---
Entered by Shital Sanders acting as a scribe for History of Present Illness General Chief complaint: Respiratory Problems Stated complaint: LABORED BREATHING, WHEEZING Time Seen by Provider: 02/21/19 08:23 Source: patient Mode of arrival: ambulatory Limitations: no limitations History of Present Illness Provider complaint: Respiratory problems Onset (ago): day(s) 2 Location: mouth and chest Radiation: non-radiation Pain Consistency: + other (worsening) Maximum Pain Intensity: 3 Quality: + other (shortness of breath, difficulty breathing) Exacerbated By: + movement (ambulation), + rest and + other (lying flat at night) Associated symptoms: + cough (dry), + fever/chills, + headaches and + other (Additional symptoms: fatigue, diarrhea) Treatments prior to arrival: none The patient is an 89 year old female with a history of COPD, hypertension, neuropathy, dyslipidemia, and breast cancer who presents to the Emergency Room with complaints of worsening respiratory problems starting 2 days ago. The patient reports that she initially had difficulty breathing with ambulation but now also has shortness of breath at rest and when lying flat at night. She also complains of chills, fatigue, a dry cough, headaches, and diarrhea over the last few days. She notes that she uses inhalers at home and that she is chronically on 2L O2. She states that her last hospitalization was 2 years ago and that her PCP is Dr. Mendez. The patient reports that she is a former smoker. Home Medications Home Medications Medication Instructions Recorded Confirmed Type acetaminophen [Tylenol Extra 500 mg PO Q6H PRN 12/28/18 02/21/19 History Strength] albuterol sulfate [ProAir HFA] 2 puff INHALATION Q4H PRN 12/28/18 02/21/19 History aspirin 81 mg PO QAM 12/28/18 02/21/19 History calcium carbonate [Calcium 500] 1,000 mg PO HS 12/28/18 02/21/19 History cetirizine [Zyrtec] 10 mg PO QAM 12/28/18 02/21/19 History hydrochlorothiazide 25 mg PO QAM 12/28/18 02/21/19 History losartan 25 mg PO QAM 12/28/18 02/21/19 History metoprolol tartrate 12.5 mg PO BID 12/28/18 02/21/19 History potassium chloride 20 meq PO QAM 12/28/18 02/21/19 History vit C,J-Wm-ggzig-lutein-zeaxan 2 tab PO QAM 12/28/18 02/21/19 History [PreserVision AREDS-2] Allergies Allergy/AdvReac Type Severity Reaction Status Date / Time No Known Allergies Allergy Unknown Verified 02/21/19 08:53 Past Med/Surg History Medical History Neuropathy Influenza A COPD, moderate (Chronic) History of breast cancer (Resolved) HTN (hypertension) (Chronic) Dyslipidemia (Chronic) Surgical History History of bilateral knee arthroplasty (Resolved) H/O partial mastectomy (Resolved) "right SLN BX , Dr. 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 and A total of 10 systems reviewed and were otherwise negative Physical Exam Vital Signs Vital Signs - 24 hr 02/21/19 08:20 02/21/19 08:29 02/21/19 08:46 Temperature 36.5 C Temperature Source Oral Sepsis Recent Fever Within 48 Hours No Sepsis New/Unexplained Change in Mental Status No Sepsis Action Taken by Nursing No Action Required Pulse Rate 76 Pulse Rate [Apical] Pulse Rate from SpO2 Sensor Respiratory Rate 20 Respiratory Effort / Characteristics Labored Respiratory Depth Normal Respiratory Pattern Regular Blood Pressure 203/79 H Blood Pressure [Left Arm] Blood Pressure Mean 120 Blood Pressure Mean [Left Arm] Blood Pressure Position Sitting Blood Pressure Position [Left Arm] Pulse Oximetry 92 95 97 Oxygen Delivery Method Nasal Cannula Nasal Cannula Nasal Cannula Oxygen Flow Rate 2 2 2 02/21/19 09:01 02/21/19 09:19 02/21/19 09:37 Temperature Temperature Source Sepsis Recent Fever Within 48 Hours Sepsis New/Unexplained Change in Mental Status Sepsis Action Taken by Nursing Pulse Rate 89 Pulse Rate [Apical] 77 66 Pulse Rate from SpO2 Sensor 67 Respiratory Rate 21 18 22 Respiratory Effort / Characteristics Spontaneous Respiratory Depth Respiratory Pattern Blood Pressure 169/84 H Blood Pressure [Left Arm] 166/83 H Blood Pressure Mean 112 Blood Pressure Mean [Left Arm] 110 Blood Pressure Position Blood Pressure Position [Left Arm] Pulse Oximetry 97 98 100 Oxygen Delivery Method Nasal Cannula Nasal Cannula Oxygen Flow Rate 2 2 02/21/19 10:23 02/21/19 11:00 02/21/19 12:04 Temperature Temperature Source Sepsis Recent Fever Within 48 Hours Sepsis New/Unexplained Change in Mental Status Sepsis Action Taken by Nursing Pulse Rate Pulse Rate [Apical] 95 H 70 Pulse Rate from SpO2 Sensor Respiratory Rate 20 20 Respiratory Effort / Characteristics Spontaneous SOB on Exertion Respiratory Depth Normal Respiratory Pattern Regular Blood Pressure Blood Pressure [Left Arm] 136/63 140/79 Blood Pressure Mean Blood Pressure Mean [Left Arm] 87 99 Blood Pressure Position Blood Pressure Position [Left Arm] Pulse Oximetry 95 97 Oxygen Delivery Method Nasal Cannula Nasal Cannula Nasal Cannula Oxygen Flow Rate 2 2 2 02/21/19 14:31 02/21/19 15:49 02/21/19 18:47 Temperature 36.6 C Temperature Source Oral Sepsis Recent Fever Within 48 Hours Sepsis New/Unexplained Change in Mental Status Sepsis Action Taken by Nursing Pulse Rate Pulse Rate [Apical] 98 H 75 Pulse Rate from SpO2 Sensor Respiratory Rate 22 19 Respiratory Effort / Characteristics Spontaneous Non-Labored Spontaneous SOB on Exertion Respiratory Depth Normal Respiratory Pattern Regular Blood Pressure Blood Pressure [Left Arm] 155/75 H Blood Pressure Mean Blood Pressure Mean [Left Arm] 101 Blood Pressure Position Blood Pressure Position [Left Arm] Pulse Oximetry 97 94 Oxygen Delivery Method Nasal Cannula Nasal Cannula Oxygen Flow Rate 2 2 02/21/19 19:06 02/21/19 19:47 02/21/19 20:00 Temperature 37.0 C Temperature Source Oral Sepsis Recent Fever Within 48 Hours Sepsis New/Unexplained Change in Mental Status Sepsis Action Taken by Nursing Pulse Rate Pulse Rate [Apical] 89 76 Pulse Rate from SpO2 Sensor Respiratory Rate 20 19 Respiratory Effort / Characteristics Non-Labored Spontaneous Non-Labored Spontaneous Respiratory Depth Normal Respiratory Pattern Regular Blood Pressure Blood Pressure [Left Arm] 161/72 H Blood Pressure Mean Blood Pressure Mean [Left Arm] 101 Blood Pressure Position Blood Pressure Position [Left Arm] Pulse Oximetry 98 96 Oxygen Delivery Method Nasal Cannula Nasal Cannula Oxygen Flow Rate 2 2 02/21/19 21:48 02/21/19 22:20 02/22/19 00:00 Temperature 36.9 C Temperature Source Oral Sepsis Recent Fever Within 48 Hours Sepsis New/Unexplained Change in Mental Status Sepsis Action Taken by Nursing Pulse Rate 77 Pulse Rate [Apical] 75 77 Pulse Rate from SpO2 Sensor Respiratory Rate 18 Respiratory Effort / Characteristics Respiratory Depth Normal Respiratory Pattern Blood Pressure Blood Pressure [Left Arm] 150/61 H 147/75 H Blood Pressure Mean Blood Pressure Mean [Left Arm] 90 99 Blood Pressure Position Blood Pressure Position [Left Arm] Lying Pulse Oximetry 93 Oxygen Delivery Method Nasal Cannula Oxygen Flow Rate 2 02/22/19 01:46 Temperature Temperature Source Sepsis Recent Fever Within 48 Hours Sepsis New/Unexplained Change in Mental Status Sepsis Action Taken by Nursing Pulse Rate Pulse Rate [Apical] 80 Pulse Rate from SpO2 Sensor Respiratory Rate 18 Respiratory Effort / Characteristics Non-Labored Spontaneous Respiratory Depth Respiratory Pattern Blood Pressure Blood Pressure [Left Arm] Blood Pressure Mean Blood Pressure Mean [Left Arm] Blood Pressure Position Blood Pressure Position [Left Arm] Pulse Oximetry 95 Oxygen Delivery Method Nasal Cannula Oxygen Flow Rate 2 GENERAL: Awake, alert, well-appearing, in no distress HENT: Normocephalic, atraumatic. Oropharynx with dry mucous membranes and otherwise unremarkable. EYES: Normal conjunctiva. Sclera non-icteric. NECK: Supple. No nuchal rigidity. FROM. No JVD. RESPIRATORY: Mild respiratory distress with pursed lip breathing and accessory muscle use. Diminished breath sounds throughout with scattered wheezes. CARDIAC: Regular rate, normal rhythm. Extremities warm and well perfused. Pulses equal. ABDOMEN: Soft, non-distended. No tenderness to palpation. No rebound or guarding. No masses. RECTAL: Deferred. MUSCULOSKELETAL: Chest examination reveals no tenderness. The back is symmetrical on inspection without obvious abnormality. There is no CVA tenderness to palpation. No joint edema. LOWER EXTREMITIES: Calves are equal size bilaterally and non-tender. Scant e memo. No discoloration. NEURO: Normal sensorium. No sensory or motor deficits noted. SKIN: No rash or jaundice noted. Course 0844: At this time the patient was evaluated by the resident, Dr. Jefe Lopez. The student's findings were discussed with me. We discussed a possible treatment plan and differential diagnoses for the patient. 0856: The patient was evaluated in room A9B. A complete history and physical exam was performed. 1030: Upon reevaluation, the patient is resting. I discussed the findings and the treatment plan with the patient. She expresses agreement and understanding. Dr. Lopez and I spoke with Dr. Mays of the [facility]. The patient will be evaluated for further management. Consultations Consultation #1: Dr. Lopez and I spoke with Dr. Mays of the [facility]. The patient will be evaluated for further management. Time: 10:30 Administered Medications Acetaminophen (Tylenol) 650 mg PO Q4H PRN PRN Reason: Pain or Fever Stop: 03/23/19 12:30 Last Admin: 02/21/19 21:51 Dose: 650 mg Documented by: [id number] Calcium Carbonate (Os-Steven 500) 1,250 mg PO DAILY@1900 ROMY Stop: 03/23/19 18:59 Last Admin: 02/21/19 19:49 Dose: 1,250 mg Documented by: [id number] Doxycycline Hyclate (Vibramycin) 100 mg PO BID [facility] Stop: 02/28/19 20:59 Last Admin: 02/21/19 21:51 Dose: 100 mg Documented by: [id number] Heparin Sodium (Porcine) (Heparin Sodium (Porcine)) 5,000 units SQ Q12 [facility]Y Stop: 03/23/19 20:59 Last Admin: 02/21/19 21:49 Dose: 5,000 units Documented by: [id number] Cosigned by: [id number] Methylprednisolone 40 mg/ (Syringe) 0.64 mls @ 1.5 mls/min IV Q8H [facility] Stop: 03/23/19 15:59 Last Admin: 02/21/19 23:52 Dose: 1.5 mls/min Documented by: [id number] Admin: 02/21/19 16:30 Dose: 1.5 mls/min Documented by: [id number] Ceftriaxone Sodium 1,000 mg/ (Dextrose) 50 mls @ 100 mls/hr IV Q24H [facility]; Protocol Stop: 02/28/19 13:29 Last Infusion: 02/21/19 15:15 Dose: 0 mls/hr Documented by: [id number] Admin: 02/21/19 14:27 Dose: 100 mls/hr Documented by: [id number] Ipratropium [place] (Atrovent 0.02% 0.5mg/2.5ml) 0.5 mg INH Q6R [facility]Y Stop: 03/23/19 13:59 Last Admin: 02/22/19 01:46 Dose: 0.5 mg Documented by: [id number] Admin: 02/21/19 19:05 Dose: 0.5 mg Documented by: [id number] Admin: 02/21/19 14:31 Dose: 0.5 mg Documented by: [id number] Levalbuterol HCl (Xopenex 1.25mg/0.5ml Neb) 1.25 mg INH Q6R ROMY Stop: 03/23/19 13:29 Last Admin: 02/22/19 01:46 Dose: 1.25 mg Documented by: [id number] Admin: 02/21/19 19:05 Dose: 1.25 mg Documented by: [id number] Admin: 02/21/19 14:31 Dose: 1.25 mg Documented by: [id number] Metoprolol Tartrate (Lopressor) 12.5 mg PO BID [facility] Stop: 03/23/19 20:59 Last Admin: 02/21/19 21:52 Dose: 12.5 mg Documented by: [id number] Miscellaneous (Order Awaiting Action) 1 ea N/A QS ROMY Stop: 03/23/19 15:59 Last Admin: 02/21/19 23:52 Dose: Not Given Documented by: [id number] Admin: 02/21/19 17:31 Dose: Not Given Documented by: [id number] Discontinued Medications Albuterol (Duoneb) 12 ml NEB NOW STA Stop: 02/21/19 09:00 Last Admin: 02/21/19 09:18 Dose: 12 ml Documented by: [id number] Sodium Chloride (Nss 1000ml) 500 mls @ 999 mls/hr IV .Q31M ROMY Stop: 02/21/19 09:45 Last Infusion: 02/21/19 10:05 Dose: 0 mls/hr Documented by: [id number] Admin: 02/21/19 09:33 Dose: 999 mls/hr Documented by: [id number] Levofloxacin/Dextrose (Levaquin/D5w) 750 mg in 150 mls @ 100 mls/hr IV NOW STA Stop: 02/21/19 11:49 Last Infusion: 02/21/19 12:03 Dose: 0 mls/hr Documented by: [id number] Admin: 02/21/19 10:26 Dose: 100 mls/hr Documented by: [id number] Methylprednisolone (Solumedrol) 30 mg IV NOW STA Stop: 02/21/19 08:59 Last Admin: 02/21/19 09:33 Dose: Not Given Documented by: [id number] Methylprednisolone (Solumedrol) 125 mg IV NOW STA Stop: 02/21/19 09:31 Last Admin: 02/21/19 09:33 Dose: 125 mg Documented by: [id number] Medical Decision Making Differential Diagnosis Differential diagnosis: Etiologies such as infections, reactive airway disease, COPD, pneumonia, pleural effusion, pulmonary edema, ARDS, pneumothorax, CHF, cardiac ischemia, cardiac tamponade, dysrhythmia, anemia, pulmonary embolism, musculoskeletal, gastrointestinal process, as well as others were entertained. Medical Records Attestation: I reviewed the patient's medical records. Home Medications Current Medication List: was personally reviewed by me Laboratory Data Attestation: I reviewed the patient's lab results. Result diagrams: 02/21/19 09:20 02/21/19 09:20 Lab Results 02/21/19 02/21/19 02/21/19 Range/Units 09:10 09:20 09:20 WBC 5.01 (4.8-10.8) K/uL RBC 4.31 (4.2-5.4) M/uL Hgb 13.4 (12.0-16.0) g/dL Hct 44.1 (37-47) % MCV 102.3 H (80-100) fL MCH 31.1 (25-34) pg MCHC 30.4 L (32-36) g/dL RDW Std Deviation 50.3 H (36.4-46.3) fL RDW Coeff of Tam 13.4 (11.5-14.5) % Plt Count 201 (130-400) K/uL MPV 9.5 (7.4-10.4) fL Immature Gran % (Auto) 0.2 % Neut % (Auto) 75.8 % Lymph % (Auto) 14.0 % [place] % (Auto) 7.2 % Eos % (Auto) 2.6 % Baso % (Auto) 0.2 % Immature Gran # (Auto) 0.01 (0.00-0.02) K/uL Neut # (Auto) 3.80 (1.4-6.5) K/uL Lymph # (Auto) 0.70 L (1.2-3.4) K/uL [place] # (Auto) 0.36 (0.11-0.59) K/uL Eos # (Auto) 0.13 (0-0.5) K/uL Baso # (Auto) 0.01 (0-0.2) K/uL PT (9.0-12.0) Seconds INR (0.9-1.1) VBG pH (7.36-7.41) VBG pCO2 (38-50) mmHg VBG pO2 mmHg VBG HCO3 mmol/L VBG O2 Saturation % VBG Base Excess mEq/L Barometric Pressure mm/Hg Sodium 135 L (136-145) mmol/L Potassium 3.8 (3.5-5.1) mmol/L Chloride 90 L (98-107) mmol/L Carbon Dioxide 40 H (21-32) mmol/L Anion Gap 5.0 (3-11) BUN 13 (7-18) mg/dl Creatinine 0.53 L (0.6-1.2) mg/dl Est Cr Clr Drug Dosing 75.6 ml/min Est GFR ( Amer) 98.9 Est GFR (Non-Af Amer) 85.4 BUN/Creatinine Ratio 25.2 H (10-20) Glucose 124 H (70-99) mg/dl Calcium 9.2 (8.5-10.1) mg/dl Total Bilirubin 0.5 (0.2-1) mg/dl AST 15 (15-37) U/L ALT 19 (12-78) U/L Alkaline Phosphatase 76 (45-117) U/L NT-Pro-B Natriuret Pep 322 (0-1800) pg/ml Total Protein 7.2 (6.4-8.2) gm/dl Albumin 3.9 (3.4-5.0) gm/dl Globulin 3.3 (2.5-4.0) gm/dl Albumin/Globulin Ratio 1.2 (0.9-2) Influenza Type A Ag Neg for Influ A (Neg) Influenza Type B Ag Neg for Influ B (Neg) 02/21/19 02/21/19 Range/Units 09:20 09:20 WBC (4.8-10.8) K/uL RBC (4.2-5.4) M/uL Hgb (12.0-16.0) g/dL Hct (37-47) % MCV (80-100) fL MCH (25-34) pg MCHC (32-36) g/dL RDW Std Deviation (36.4-46.3) fL RDW Coeff of Tam (11.5-14.5) % Plt Count (130-400) K/uL MPV (7.4-10.4) fL Immature Gran % (Auto) % Neut % (Auto) % Lymph % (Auto) % [place] % (Auto) % Eos % (Auto) % Baso % (Auto) % Immature Gran # (Auto) (0.00-0.02) K/uL Neut # (Auto) (1.4-6.5) K/uL Lymph # (Auto) (1.2-3.4) K/uL [place] # (Auto) (0.11-0.59) K/uL Eos # (Auto) (0-0.5) K/uL Baso # (Auto) (0-0.2) K/uL PT 9.9 (9.0-12.0) Seconds INR 1.0 (0.9-1.1) VBG pH 7.33 L (7.36-7.41) VBG pCO2 89 H (38-50) mmHg VBG pO2 33 mmHg VBG HCO3 46 mmol/L VBG O2 Saturation 64.2 % VBG Base Excess 15.4 mEq/L Barometric Pressure 734.1 mm/Hg Sodium (136-145) mmol/L Potassium (3.5-5.1) mmol/L Chloride (98-107) mmol/L Carbon Dioxide (21-32) mmol/L Anion Gap (3-11) BUN (7-18) mg/dl Creatinine (0.6-1.2) mg/dl Est Cr Clr Drug Dosing ml/min Est GFR ( Amer) Est GFR (Non-Af Amer) BUN/Creatinine Ratio (10-20) Glucose (70-99) mg/dl Calcium (8.5-10.1) mg/dl Total Bilirubin (0.2-1) mg/dl AST (15-37) U/L ALT (12-78) U/L Alkaline Phosphatase (45-117) U/L NT-Pro-B Natriuret Pep (0-1800) pg/ml Total Protein (6.4-8.2) gm/dl Albumin (3.4-5.0) gm/dl Globulin (2.5-4.0) gm/dl Albumin/Globulin Ratio (0.9-2) Influenza Type A Ag (Neg) Influenza Type B Ag (Neg) Imaging Data Radiologist's Impression: Radiology results as stated below per my review and the radiologist's interpretation: XR chest 1V portable CLINICAL HISTORY: 89 years-old Female presenting with Shortness of breath. TECHNIQUE: Portable upright AP view of the chest was obtained. COMPARISON: 01/02/2017. FINDINGS: Atherosclerosis of the aortic arch. Cardiac silhouette enlarged. Elevation of the right hemidiaphragm with resultant low lung volume. Mild pulmonary vascular prominence and bronchial wall cuffing evident on the left. Stable to slight interval increase in left basilar opacity with persistent small left pleural effusion. No pneumothorax. Degenerative changes of the glenohumeral joints. IMPRESSION: 1. Stable to slightly increased left basilar infiltrate. Infection/pneumonia is not excluded. However, given posterior basilar prominence of bronchial wall cuffing, this could represent asymmetric pulmonary edema. 2. Smaller pleural effusion. Electronically signed by: Carlos Carroll M.D. 02/21/2019 9:34 AM ECG Data Attestation: I personally reviewed and interpreted this ECG as follows: Indication: SOB/dyspnea Rate (beats per minute): 70 Rhythm: sinus rhythm (premature supraventricular complexes) Findings: + other (Incomplete RBBB) and + left axis deviation Blood Pressure Blood Pressure Findings: Normal blood pressure MDM Narrative The patient is a pleasant 89-year-old woman with a past medical history of COPD, hypertension who presents emergency department with worsening cough, congestion and chest tightness over the past several days per hpi. On arrival patient is uncomfortable in mild respiratory distress with pursed lip breathing. She is afebrile with stable vital signs. EKG with incomplete RBBB without evidence of acute ischemia. CXR with left basilar infiltrate suspicious for pneumonia. WBC, H/H, platelets wnl. VBG with pH of 7.33 and PCO2 of 89. Chemistry without acidosis the bicarb is 40 suggesting likely chronic component to the patient's hypercapnia. LFTs and electrolytes unremarkable. BNP within normal limits. Flu negative. Given the patient's respiratory distress on arrival patient was ordered for steroids and continuous DuoNeb as well as BiPAP given her mild work of breathing however patient did show some improvement prior to being placed on BiPAP and therefore this was deferred to allow for response to nebs which subsequently had good effect with resolved work of breathing. Will begin treatment with Levaquin. Resident, Dr. Lopez, discussed case with [facility] admitting team, Dr. Mays, will evaluate the patient for admission. This patient was managed with the assistance of resident, Dr. Lopez. I discussed the case with the resident, examined the patient, and confirm the findings and plan as documented in this note. Impression & Plan Pneumonia Discharge Plan Visit Data *Final* Discharge Date/Time: 02/21/19 12:04 Chief Complaint: Respiratory Problems Stated Complaint: LABORED BREATHING, WHEEZING ED Provider: Casper Aguillon ED Midlevel Provider: Jefe Lopez Discharge Problem: Pneumonia Patient Disposition: Admitted As Inpatient Discharge Instructions Interventions: ED Discharge Assessment Last Done: 02/21/19 12:04 Discharge Problem: Pneumonia Qualifiers: Pneumonia type: due to unspecified organism Laterality: left Lung location: lower lobe of lung Qualified Code(s): J18.1 - Lobar pneumonia, unspecified organism The scribe's documentation has been prepared under my direction and personally reviewed by me in its entirety. I confirm that the note above accurately refl ects all work, treatment, procedures, and medical decision making performed by me.
[2019-02-21] MEDS: methylPREDNISolone 40 MG in SYRINGE 0 ML IV SCH ×2 (16:30→23:52)
[2019-02-21] MEDS: CALCIUM CARBONATE 1250MG TAB PO SCH (19:49)
[2019-02-21] MEDS: HEPARIN SOD 5,000 UNIT/0.5 ML VIAL SQ SCH (21:49)
[2019-02-21] MEDS: ACETAMINOPHEN 325 MG TAB PO PRN (21:51)
[2019-02-21] MEDS: DOXYCYCLINE HYCLATE 100 MG CAP PO SCH (21:51)
[2019-02-21] MEDS: METOPROLOL TARTRATE 25 MG TAB PO SCH (21:52)
[2019-02-22] MEDS: LEVALBUTEROL 1.25MG/0.5ML NEB INH SCH ×4 (01:46→19:02)
[2019-02-22] MEDS: IPRATROPIUM BROMIDE NEB SOLN 0.02% 2.5 ML VIAL INH SCH ×4 (01:46→19:02)
[2019-02-22 05:42] LABS: Hematocrit (blood only) 39.3 % (37-47); Hemoglobin 12.5 g/dL (12.0-16.0); Immature Granulocytes # (auto) 0.01 K/uL (0.00-0.02); Immature Granulocytes % (auto) 0.2 %; Lymphocytes # (auto) 0.35 K/uL (1.2-3.4); Lymphocytes % (auto) 7.7 %; Mean Corpuscular Hgb Conc 31.8 g/dL (32-36); Mean Corpuscular Volume 98.5 fL (80-100); Mean Platelet Volume 9.7 fL (7.4-10.4); Monocytes # (auto) 0.14 K/uL (0.11-0.59); Monocytes % (auto) 3.1 %; Neutrophils # (auto) 4.07 K/uL (1.4-6.5); Platelet Count 200 K/uL (130-400); RDW Coefficient of Variation 13.6 % (11.5-14.5); Red Blood Count 3.99 M/uL (4.2-5.4); White Blood Count 4.57 K/uL (4.8-10.8)
[2019-02-22 06:02] LABS: BUN Creatinine Ratio 24.6 (10-20); Calcium 8.8 mg/dl (8.5-10.1); Creatinine Clr Calc Pharmacy 83.5 ml/min; Est GFR (African American) 102.2; Est GFR (Non-African American) 88.2; Potassium 3.8 mmol/L (3.5-5.1)
[2019-02-22 07:12] LABS: Estimated Average Glucose 108 mg/dl; Hemoglobin A1C 5.4 % (4.5-5.6)
[2019-02-22] MEDS: methylPREDNISolone 40 MG in SYRINGE 0 ML IV SCH ×2 (08:09→16:03)
[2019-02-22] MEDS: METOPROLOL TARTRATE 25 MG TAB PO SCH ×2 (08:09→20:55)
[2019-02-22] MEDS: hydroCHLOROthiazide 25 MG TAB PO SCH (08:10)
[2019-02-22] MEDS: DOXYCYCLINE HYCLATE 100 MG CAP PO SCH ×2 (08:10→20:55)
[2019-02-22] MEDS: ASPIRIN 81 MG ECTAB PO SCH (08:10)
[2019-02-22] MEDS: LOSARTAN POTASSIUM 25 MG TAB PO SCH (08:10)
[2019-02-22] MEDS: POTASSIUM CHLORIDE 10 MEQ TABCR PO SCH (08:11)
[2019-02-22] MEDS: CETIRIZINE HCL 10 MG TABLET PO SCH (08:11)
[2019-02-22] MEDS: HEPARIN SOD 5,000 UNIT/0.5 ML VIAL SQ SCH ×2 (08:12→20:54)
--- NOTE | 2019-02-22 13:01 | Hospitalist Progress Note ---
Date of Service February 22, 2019 Assessment & Plan (1) COPD exacerbation: Pneumonia Present on admission with worsening SOB CXR showed slightly increased left basilar infiltrate Influenza Ag negative Received Solumedrol in the ER Continue Rocephin and Doxycline Continue solumedrol 40mg IV q8h Continue neb treatment Continue oxygen supplement Hypertension BP Elevated Continue hydrochlorothiazide, losartan and Lopressor. Monitor the blood pressure. History of macular degeneration Follow up with ophthalmology. Hx allergic rhinitis and allergic urticaria Continue cetirizine daily. Osteoarthritis stable. Hx Breast cancer status post right partial mastectomy in 1998. Stable Hyperglycemia Moslty related to sterroid Hba1c 5.4 Continue monitor DVT px on heparin subq CODE STATUS FULL CODE Subjective Pt was seen and examined Lying in bed with no distress Pt said that her breathing feels much better Pt said that she does not have any cough Denies any chest pain, palpitation, dizziness and fever Physical Exam Vital Signs (Past 24 Hours): Last Vital Signs Temp 36.6 C 02/22/19 07:50 Pulse 101 H 02/22/19 07:50 Resp 20 02/22/19 07:50 BP 155/72 H 02/22/19 07:50 Pulse Ox 90 02/22/19 07:50 Physical Exam: General- No acute distress Head- atraumatic Eyes- PERRL, EOMI, ENT- oropharynx clear Neck- supple, no JVD Lungs- +mild wheezing Heart- regular rhythm; no murmur Abdomen- normal bowel sounds, soft, nontender Extremities- no calf tenderness Neuro- alert, oriented x 3; PERRL, EOMI; no facial palsy; no dysarthria Skin- warm & dry
[2019-02-22] MEDS: cefTRIAXone SODIUM 1,000 MG in DEXTROSE 5% 50 ML IV SCH (13:42)
[2019-02-22] MEDS: CALCIUM CARBONATE 1250MG TAB PO SCH (18:49)
[2019-02-22] MEDS: ACETAMINOPHEN 325 MG TAB PO PRN (21:02)
[2019-02-23] MEDS: methylPREDNISolone 40 MG in SYRINGE 0 ML IV SCH ×4 (00:10→23:56)
[2019-02-23] MEDS: LEVALBUTEROL 1.25MG/0.5ML NEB INH SCH ×4 (02:03→19:31)
[2019-02-23] MEDS: IPRATROPIUM BROMIDE NEB SOLN 0.02% 2.5 ML VIAL INH SCH ×4 (02:03→19:31)
[2019-02-23 06:05] LABS: Hematocrit (blood only) 40.9 % (37-47); Hemoglobin 12.8 g/dL (12.0-16.0); Mean Corpuscular Hgb Conc 31.3 g/dL (32-36); Mean Corpuscular Volume 101.2 fL (80-100); Mean Platelet Volume 9.5 fL (7.4-10.4); Platelet Count 214 K/uL (130-400); Red Blood Count 4.04 M/uL (4.2-5.4); White Blood Count 8.84 K/uL (4.8-10.8)
[2019-02-23] MEDS: LOSARTAN POTASSIUM 25 MG TAB PO SCH (07:39)
[2019-02-23] MEDS: CETIRIZINE HCL 10 MG TABLET PO SCH (07:40)
[2019-02-23] MEDS: POTASSIUM CHLORIDE 10 MEQ TABCR PO SCH (07:40)
[2019-02-23] MEDS: DOXYCYCLINE HYCLATE 100 MG CAP PO SCH ×2 (07:40→20:33)
[2019-02-23] MEDS: METOPROLOL TARTRATE 25 MG TAB PO SCH ×2 (07:40→20:33)
[2019-02-23] MEDS: hydroCHLOROthiazide 25 MG TAB PO SCH (07:40)
[2019-02-23] MEDS: ASPIRIN 81 MG ECTAB PO SCH (07:41)
[2019-02-23] MEDS: HEPARIN SOD 5,000 UNIT/0.5 ML VIAL SQ SCH ×2 (07:42→20:34)
[2019-02-23] MEDS: cefTRIAXone SODIUM 1,000 MG in DEXTROSE 5% 50 ML IV SCH (12:49)
[2019-02-23] MEDS: CALCIUM CARBONATE 1250MG TAB PO SCH (18:19)
--- NOTE | 2019-02-23 19:31 | Hospitalist Progress Note ---
Date of Service February 23, 2019 Assessment & Plan (1) COPD exacerbation: Pneumonia Present on admission with worsening SOB CXR showed slightly increased left basilar infiltrate Influenza Ag negative Received Solumedrol in the ER Continue Rocephin and Doxycline Continue solumedrol 40mg IV q8h Continue neb treatment Continue oxygen supplement Hypertension BP Elevated Continue hydrochlorothiazide, losartan and Lopressor. Monitor the blood pressure. History of macular degeneration Follow up with ophthalmology. Hx allergic rhinitis and allergic urticaria Continue cetirizine daily. Osteoarthritis stable. Hx Breast cancer status post right partial mastectomy in 1998. Stable Hyperglycemia Moslty related to sterroid Hba1c 5.4 Continue monitor DVT px on heparin subq CODE STATUS FULL CODE Subjective Pt was seen and examined Lying in bed with no distress Pt said that she feels much better She said that her breathing improves Denies any chest pain, palpitation and fever Physical Exam Vital Signs (Past 24 Hours): Last Vital Signs Temp 36.8 C 02/23/19 19:21 Pulse 80 02/23/19 19:21 Resp 22 02/23/19 19:21 BP 156/82 H 02/23/19 19:21 Pulse Ox 91 02/23/19 19:21 Physical Exam: General- No acute distress Head- atraumatic Eyes- PERRL, EOMI, ENT- oropharynx clear Neck- supple, no JVD Lungs- +mild wheezing Heart- regular rhythm; no murmur Abdomen- normal bowel sounds, soft, nontender Extremities- no calf tenderness Neuro- alert, oriented x 3; PERRL, EOMI; no facial palsy; no dysarthria Skin- warm & dry
[2019-02-24] MEDS: LEVALBUTEROL 1.25MG/0.5ML NEB INH SCH ×3 (01:30→13:25)
[2019-02-24] MEDS: IPRATROPIUM BROMIDE NEB SOLN 0.02% 2.5 ML VIAL INH SCH ×3 (01:30→13:25)
[2019-02-24 07:35] LABS: Influenza A virus by PCR Neg for Influ A (Neg); Influenza B virus by PCR Neg for Influ B (Neg)
[2019-02-24] MEDS: CETIRIZINE HCL 10 MG TABLET PO SCH (09:09)
[2019-02-24] MEDS: methylPREDNISolone 40 MG in SYRINGE 0 ML IV SCH ×2 (09:09→15:19)
[2019-02-24] MEDS: METOPROLOL TARTRATE 25 MG TAB PO SCH (09:10)
[2019-02-24] MEDS: LOSARTAN POTASSIUM 25 MG TAB PO SCH (09:10)
[2019-02-24] MEDS: ASPIRIN 81 MG ECTAB PO SCH (09:11)
[2019-02-24] MEDS: hydroCHLOROthiazide 25 MG TAB PO SCH (09:12)
[2019-02-24] MEDS: POTASSIUM CHLORIDE 10 MEQ TABCR PO SCH (09:13)
[2019-02-24] MEDS: DOXYCYCLINE HYCLATE 100 MG CAP PO SCH (09:13)
[2019-02-24] MEDS: HEPARIN SOD 5,000 UNIT/0.5 ML VIAL SQ SCH (09:14)
[2019-02-24] MEDS: ACETAMINOPHEN 325 MG TAB PO PRN (09:58)
[2019-02-24] MEDS: cefTRIAXone SODIUM 1,000 MG in DEXTROSE 5% 50 ML IV SCH (13:45)
--- NOTE | 2019-02-24 15:19 | Hospitalist Progress Note ---
Date of Service February 24, 2019 Assessment & Plan (1) COPD exacerbation: Pneumonia Present on admission with worsening SOB CXR showed slightly increased left basilar infiltrate Influenza Ag negative Received Solumedrol in the ER On Rocephin and Doxycycline On solumedrol 40mg IV q8h Will change with prednisone 40mg taper dose Continue neb treatment Continue oxygen supplement Hypertension BP Elevated Continue hydrochlorothiazide, losartan and Lopressor. Monitor the blood pressure. History of macular degeneration Follow up with ophthalmology. Hx allergic rhinitis and allergic urticaria Continue cetirizine daily. Osteoarthritis stable. Hx Breast cancer status post right partial mastectomy in 1998. Stable Hyperglycemia Moslty related to sterroid Hba1c 5.4 Continue monitor DVT px on heparin subq CODE STATUS FULL CODE Disposition Follow up with primary care provider Dr. Inman on 02/28 @ 10:45 AM Subjective Pt was seen and examined Lying in bed with no distress Pt said that she feels much better She said that she walked in the hallway with no distress She said that her breathing improves She is very anxious to be discharged today Denies any chest pain, palpitation, dizziness and fever Physical Exam Vital Signs (Past 24 Hours): Last Vital Signs Temp 36.5 C 02/24/19 11:42 Pulse 58 L 02/24/19 13:25 Resp 18 02/24/19 13:25 BP 139/61 02/24/19 11:42 Pulse Ox 96 02/24/19 13:25 Physical Exam: General- No acute distress Head- atraumatic Eyes- PERRL, EOMI, ENT- oropharynx clear Neck- supple, no JVD Lungs- +mild wheezing Heart- regular rhythm; no murmur Abdomen- normal bowel sounds, soft, nontender Extremities- no calf tenderness Neuro- alert, oriented x 3; PERRL, EOMI; no facial palsy; no dysarthria Skin- warm & dry
--- NOTE | 2019-03-04 07:55 | Discharge Summary ---
Date of Service February 24, 2019 Admission HPI Per Admitting Provider CHIEF COMPLAINT: Shortness of breath. HISTORY OF PRESENT ILLNESS: This is an 89-year-old female with past medical history significant for COPD, oxygen dependent, chronic respiratory failure, uses 2 liters oxygen all the time, hyperlipidemia, allergic rhinitis, hypertension, left atrial enlargement, history of esophageal stricture, history of osteoarthritis, allergic urticaria, hyperglycemia, history of breast cancer, presents with shortness of breath. The patient says since last couple of days she was getting more short of breath and cough which was dry cough, she walks without help and sometimes uses a cane, walking a few steps making her short of breath. She can sleep flat, but every 2 hours she was waking up with short of breath.Patient lives alone. She takes care of herself. She can drive. She has friends. She denies any fever or chills. She has some headache. She gets dizzy when she stands very quickly. She has macular degeneration and she gets eye injections. No earache. She has runny nose that she attributes to her oxygen and says there is no change in her runny nose. No sore throat, no difficulty swallowing, no chest pain, no nausea, no abdominal pain. Occasionally, she gets diarrhea. No blood in the stools, no black stools. Normal bladder movements. No hematuria, no burning micturition. She says once in a while her leg swells. No rash. She says that she has hemorrhoids and she bruises easily when she bumps. Currently, she received a hour long neb treatment and Solu-Medrol in ER and resting comfortably and hemodynamically stable. Admission Exam Per Admitting Provider GENERAL: The patient is moderate build, not in acute distress. VITAL SIGNS: Temperature 36.5, pulse 95, respiratory rate 20, blood pressure 136/63, oxygen 95% on 2 liters. HEENT: No pallor, no icterus. Pupils equal, round, react to light. NECK: No JVD, no neck mass, no carotid bruit. CARDIOVASCULAR: S1, S2 heard, regular rate and rhythm, no murmur, no gallop. RESPIRATORY SYSTEM: Normal AP diameter. No accessory muscle use. No wheezing, no rhonchi. ABDOMEN: Soft, bowel sounds present. Nontender. No distention. CENTRAL NERVOUS SYSTEM: Cranial nerves II-XII grossly intact. Nonfocal. EXTREMITIES: Trace edema. No erythema seen. Principal Diagnosis COPD exacerbation Pneumonia Discharge Exam General- No acute distress Head- atraumatic Eyes- PERRL, EOMI, ENT- oropharynx clear Neck- supple, no JVD Lungs- +mild wheezing Heart- regular rhythm; no murmur Abdomen- normal bowel sounds, soft, nontender Extremities- no calf tenderness Neuro- alert, oriented x 3; PERRL, EOMI; no facial palsy; no dysarthria Skin- warm & dry Discharge Data Allergies Allergy/AdvReac Type Severity Reaction Status Date / Time No Known Allergies Allergy Unknown Verified 02/21/19 08:53 Consultations 02/21/19 12:31 Consult Case Management - Discharge Planning Routine Ordered Studies XR chest 1V portable CLINICAL HISTORY: 89 years-old Female presenting with Shortness of breath. TECHNIQUE: Portable upright AP view of the chest was obtained. COMPARISON: 01/02/2017. FINDINGS: Atherosclerosis of the aortic arch. Cardiac silhouette enlarged. Elevation of the right hemidiaphragm with resultant low lung volume. Mild pulmonary vascular prominence and bronchial wall cuffing evident on the left. Stable to slight interval increase in left basilar opacity with persistent small left pleural effusion. No pneumothorax. Degenerative changes of the glenohumeral joints. IMPRESSION: 1. Stable to slightly increased left basilar infiltrate. Infection/pneumonia is not excluded. However, given posterior basilar prominence of bronchial wall cuffing, this could represent asymmetric pulmonary edema. 2. Smaller pleural effusion. Electronically signed by: Carlos Carroll M.D. 02/21/2019 9:34 AM Dictated: 02/21/19931 Transcribed: 02/21/19931 Hospital Course (1) COPD exacerbation: Pneumonia Present on admission with worsening SOB CXR showed slightly increased left basilar infiltrate Influenza Ag negative Received Solumedrol in the ER On Rocephin and Doxycycline On solumedrol 40mg IV q8h Will change with prednisone 40mg taper dose Continue neb treatment Continue oxygen supplement Hypertension BP Elevated Continue hydrochlorothiazide, losartan and Lopressor. Monitor the blood pressure. History of macular degeneration Follow up with ophthalmology. Hx allergic rhinitis and allergic urticaria Continue cetirizine daily. Osteoarthritis stable. Hx Breast cancer status post right partial mastectomy in 1998. Stable Hyperglycemia Moslty related to sterroid Hba1c 5.4 Continue monitor DVT px on heparin subq CODE STATUS FULL CODE Disposition Follow up with primary care provider Dr. Inman on 02/28 @ 10:45 AM Total Time Total Time Spent Total Time Spent (In Minutes): 35 minutes Total Time Includes: Examination of the Patient, Discharge Planning, Medication Reconciliation, Communication With Other Providers and Other Discharge Plan Discharge Items Patient Disposition: Home - Self-Care Reason For Visit: SOB Discharge Diagnosis: COPD exacerbation Pneumonia Discharge Goals: Decrease discomfort, Improve disease control, Improve function and Increase independence Activity: Resume your previous activity Activity Comment: As tolerated Non-emergency contact: Primary Care Provider Call non-emergency contact if: you have any medication questions, your symptoms worsen and your temperature is above 101 Follow-up/Referrals: Dandre Mendez DO [Primary Care Provider] - Diet: Heart Healthy Addtl Provider Instructions: Follow up with primary care provider Dr. Inman on 02/28 @ 10:45 AM Complete course of antibiotic with doxycycline Complete prednisone taper course Continue oxygen supplement Prescriptions: New doxycycline hyclate 100 mg Capsule 100 mg PO BID Qty: 9 RF: 0 prednisone 10 mg tablet 10 mg PO UD Qty: 20 RF: 0 ipratropium-albuterol 0.5 mg-3 mg(2.5 mg base)/3 mL solution for nebulization 3 ml INH Q8H PRN (Reason: wheezing) Qty: 90 RF: 0 guaifenesin 200 mg tablet 200 mg PO TID PRN (Reason: cough) Qty: 15 RF: 0 Continued cetirizine [Zyrtec] 10 mg Tablet 10 mg PO QAM RF: 0 aspirin 81 mg Tablet,Delayed Release (Dr/Ec) 81 mg PO QAM RF: 0 acetaminophen [Tylenol Extra Strength] 500 mg Tablet 500 mg PO Q6H PRN (Reason: Pain) RF: 0 calcium carbonate [Calcium 500] 500 mg calcium (1,250 mg) Tablet 1,000 mg PO HS RF: 0 losartan 25 mg tablet 25 mg PO QAM RF: 0 hydrochlorothiazide 25 mg tablet 25 mg PO QAM RF: 0 albuterol sulfate 90 mcg/actuation HFA aerosol inhaler 2 puff Inhalation Q4H PRN (Reason: Shortness Of Breath Or Wheezing) RF: 0 potassium chloride 10 mEq tablet,ER particles/crystals 20 meq PO QAM RF: 0 metoprolol tartrate 25 mg tablet 12.5 mg PO BID RF: 0 PreserVision AREDS-2 [phone] Capsule 2 tab PO QAM RF: 0 Stand-Alone Forms: [facility] Discharge Orders: Discharge Order (Routine); Ordered 02/24/19 Ordered By: Candelaria Kirby Admission Data Admit Date/Time: 02/21/19 11:23 Attending Provider: Candelaria Kirby Admit Provider: Sotero Mays Primary Care Provider: Dandre Mendez Service: Telemetry Medical Other Interventions: Discharge Summary Assessment (RN) Last Done: 02/24/19 15:14 DC Date/Time DO NOT enter until pt leaves facility: 02/24/19 17:17
== END 2019-02-24 17:17 | disposition home or self-care (01) | DRG 190 ==
LOC: ED 08:17 → 2W 11:23

== ENCOUNTER 2019-08-12 11:25 | Inpatient (IN) ==
[2019-08-12] MEDS ORDERED: ALBUT/IPRATROP 3MG/0.5MG NEB 3 ML VIAL NEB STA (12:00)
--- NOTE | 2019-08-12 12:13 | Emergency Department Note ---
Entered by Leo Marshall acting as a scribe for Kristofer Salazar DO History of Present Illness General Chief complaint: Shortness of Breath/Dyspnea Time Seen by Provider: 08/12/19 11:29 Source: patient and RN notes reviewed History of Present Illness Provider complaint: Shortness of breath Onset (ago): week(s) (Couple of weeks) Location: chest Pain Consistency: + other (Worsening) Relieved By: + none Exacerbated By: + none Associated symptoms: + cough, + shortness of breath and + weakness; no chest pain, no fever/chills and no nausea/vomiting The patient is an 89 year old female who presents to the Emergency Room with complaints of worsening shortness of breath over the past couple of weeks, per the nursing staff. The patient lives alone at home and when her neighbors came to bring her to a doctors appointment they noticed she was not well so they called EMS. Per the nursing note, the neighbors have noticed increased shortness of breath and right sided weakness over the past few weeks. The patient's neighbors also state the patient has been confused more than she normally is. The patient also adds that her lower extremities are more swollen than they normally are. The patient denies any chest pain, nausea, vomiting, or fevers. The patient has a history of Afib and is on blood thinners. Home Medications Home Medications Medication Instructions Recorded Confirmed Type PreserVision AREDS-2 1 tab PO QAM 12/28/18 08/12/19 History acetaminophen [Tylenol Extra 500 mg PO Q6H PRN 12/28/18 08/12/19 History Strength] albuterol sulfate 2 puff INHALATION Q4H PRN 12/28/18 08/12/19 History aspirin 81 mg PO QAM 12/28/18 08/12/19 History cetirizine [Zyrtec] 10 mg PO QAM 12/28/18 08/12/19 History hydrochlorothiazide 12.5 mg PO QAM 12/28/18 08/12/19 History losartan 25 mg PO QAM 12/28/18 08/12/19 History potassium chloride 10 meq PO QAM 12/28/18 08/12/19 History ipratropium-albuterol 3 ml INH Q8H PRN #90 ml 02/24/19 08/12/19 Rx furosemide 10 mg PO DAILY 08/12/19 08/12/19 History metoprolol succinate 25 mg PO DAILY 08/12/19 08/12/19 History metronidazole 1 applic TOPICAL DAILY 08/12/19 08/12/19 History tiotropium bromide [Spiriva 2 inh INHALATION DAILY 08/12/19 08/12/19 History Respimat] Allergies Allergy/AdvReac Type Severity Reaction Status Date / Time No Known Allergies Allergy Unknown Verified 08/12/19 14:53 Past Med/Surg History Medical History Chronic respiratory failure with hypoxia, on home O2 therapy (Chronic) Macular degeneration (Chronic) COPD, moderate (Chronic) History of breast cancer (Resolved) s/p partial mastectomy 1998 HTN (hypertension) (Chronic) Dyslipidemia (Chronic) Influenza A (Resolved) Surgical History History of bilateral knee arthroplasty (Resolved) H/O partial mastectomy (Resolved) "right SLN BX , Dr. Stockton at [facility] 1998" S/P rotator cuff repair (Resolved) Family History Father Cancer colon Diabetes Mother Glaucoma Other Family history non-contributory Social History Preferred Language: Italian Communication Ability: Effective Adult Ministries Director Required: No Beliefs That Will Affect Care: None marital status: Current Living Situation: Alone current occupational status: retired Other Information That Helps Us Care for You: No Feels Safe at Home: Yes Safety Concerns: Feels Safe At This Time Smoking Status: Former smoker packs per day: 1 ; Years Smoked: 10 ; Do You Dip or Chew Tobacco: No ; Number of Years Since Quit: 50 ; Second Hand Exposure: No ; Tobacco Cessation Education Requested by Patient: No Hx Alcohol Use: Yes Alcohol type: hard liquor Alcohol Intake Frequency Comment: 4oz daily Hx Substance Use: No Childhood Exposure to Second-Hand Smoke: No Review of Systems See HPI for pertinent positives & negatives. and A total of 10 systems reviewed and were otherwise negative Physical Exam Vital Signs Vital Signs - 24 hr 08/12/19 11:42 08/12/19 12:00 08/12/19 12:08 Temperature 36.4 C L Temperature Source Oral Sepsis Recent Fever Within 48 Hours No Sepsis New/Unexplained Change in Mental Status No Sepsis Action Taken by Nursing No Action Required Oxygen Flow Rate - Titration Pulse Oximetry Post Tiitration Pulse Rate 160 H 158 H 161 H Pulse Rate from SpO2 Sensor 110 H 130 H 107 H Respiratory Rate 25 H 19 26 H Respiratory Effort / Characteristics Labored Tripoding Respiratory Depth Deep Respiratory Pattern Tachypnea Blood Pressure 90/48 L 99/80 L 83/73 L Blood Pressure Mean 62 86 76 Blood Pressure Position Sitting Pulse Oximetry 97 93 100 Oxygen Delivery Method Nasal Cannula Nasal Cannula Nebulizer Oxygen Flow Rate 3 3 Fraction of Inspired Oxygen 08/12/19 12:15 08/12/19 12:19 08/12/19 12:22 Temperature Temperature Source Sepsis Recent Fever Within 48 Hours Sepsis New/Unexplained Change in Mental Status Sepsis Action Taken by Nursing Oxygen Flow Rate - Titration 3 Pulse Oximetry Post Tiitration 95 Pulse Rate 150 H Pulse Rate from SpO2 Sensor 94 H Respiratory Rate 39 H Respiratory Effort / Characteristics Respiratory Depth Respiratory Pattern Blood Pressure Blood Pressure Mean Blood Pressure Position Pulse Oximetry 98 92 95 Oxygen Delivery Method Nebulizer Nasal Cannula Nasal Cannula Oxygen Flow Rate 2 3 Fraction of Inspired Oxygen 08/12/19 12:30 08/12/19 12:39 08/12/19 12:45 Temperature Temperature Source Sepsis Recent Fever Within 48 Hours Sepsis New/Unexplained Change in Mental Status Sepsis Action Taken by Nursing Oxygen Flow Rate - Titration Pulse Oximetry Post Tiitration Pulse Rate 173 H 152 H 139 H Pulse Rate from SpO2 Sensor 117 H 147 H 113 H Respiratory Rate 33 H 30 H 53 H Respiratory Effort / Characteristics Respiratory Depth Respiratory Pattern Blood Pressure 80/65 L 95/69 L Blood Pressure Mean 70 77 Blood Pressure Position Pulse Oximetry 99 98 94 Oxygen Delivery Method Nebulizer Nasal Cannula Oxygen Flow Rate 3 3 Fraction of Inspired Oxygen 08/12/19 13:00 08/12/19 13:07 08/12/19 13:15 Temperature Temperature Source Sepsis Recent Fever Within 48 Hours Sepsis New/Unexplained Change in Mental Status Sepsis Action Taken by Nursing Oxygen Flow Rate - Titration Pulse Oximetry Post Tiitration Pulse Rate 153 H 153 H 147 H Pulse Rate from SpO2 Sensor 112 H 107 H Respiratory Rate 25 H 22 17 Respiratory Effort / Characteristics Spontaneous Respiratory Depth Shallow Respiratory Pattern Regular Blood Pressure 120/61 Blood Pressure Mean 80 Blood Pressure Position Pulse Oximetry 99 92 95 Oxygen Delivery Method BiPAP BiPAP Oxygen Flow Rate Fraction of Inspired Oxygen 40 08/12/19 13:17 08/12/19 13:30 08/12/19 13:31 Temperature Temperature Source Sepsis Recent Fever Within 48 Hours Sepsis New/Unexplained Change in Mental Status Sepsis Action Taken by Nursing Oxygen Flow Rate - Titration Pulse Oximetry Post Tiitration Pulse Rate 141 H 157 H 157 H Pulse Rate from SpO2 Sensor 122 H 128 H 162 H Respiratory Rate 18 23 26 H Respiratory Effort / Characteristics Respiratory Depth Respiratory Pattern Blood Pressure 110/73 Blood Pressure Mean 85 Blood Pressure Position Pulse Oximetry 97 95 Oxygen Delivery Method BiPAP BiPAP Oxygen Flow Rate Fraction of Inspired Oxygen 08/12/19 13:33 Temperature Temperature Source Sepsis Recent Fever Within 48 Hours Sepsis New/Unexplained Change in Mental Status Sepsis Action Taken by Nursing Oxygen Flow Rate - Titration Pulse Oximetry Post Tiitration Pulse Rate 140 H Pulse Rate from SpO2 Sensor 191 H Respiratory Rate 22 Respiratory Effort / Characteristics Respiratory Depth Respiratory Pattern Blood Pressure 104/64 Blood Pressure Mean 77 Blood Pressure Position Pulse Oximetry Oxygen Delivery Method Oxygen Flow Rate Fraction of Inspired Oxygen GENERAL: Patient is listless and slow to respond to commands. She appears to be in moderate distress. EYES: The conjunctivae are clear. The pupils are round and reactive. EARS, NOSE, MOUTH AND THROAT: The nose is without any evidence of any deformity. Mucous membranes are moist tongue is midline NECK: The neck is nontender and supple. RESPIRATORY: Shallow respirations were noted. Diminished breath sounds are noted throughout. There were rales in both bases. CARDIOVASCULAR: Tachycardic rate with a regular rhythm was noted. There is no definite murmur. GASTROINTESTINAL: The abdomen is soft. Bowel sounds are present in all quadrants. Abdomen is nontender MUSCULOSKELETAL/EXTREMITIES: There is no evidence of gross deformity full range of motion is noted in the hips and shoulders SKIN: There is no obvious evidence of any rash. Pedal edema was noted bilaterally. NEUROLOGIC: Patient is awake and oriented to person place and situation. Strength was symmetric but diminished. Course 1156: Past medical records reviewed. The patient was evaluated in room A10, and a complete history and physical examination were performed. 1311: I spoke to Kenzie Hernandez PAC under Dr. Timo Hernandez Hospitalist about the patient's case. They will be accepting the patient for further evaluation. 1323: I spoke to Dr. Kasper - Operating System Programmer about the patient case and the work up done thus far. 1331: I reevaluated the patient and she was resting in bed. I updated her on the results as well as discussed the treatment plan. She agreed with the plan. Consultations Consultation #1: I spoke to Kenzie Hernandez PAC under Dr. Timo Hernandez Hospitalist about the patient's case. They will be accepting the patient for further evaluation. Time: 13:11 Consultation #2: I spoke to Dr. Kasper - Operating System Programmer about the patient case and the work up done thus far. Time: 13:23 Administered Medications Albuterol (Duoneb) 3 ml NEB Q6R [facility] Stop: 09/11/19 18:59 Last Admin: 08/13/19 01:21 Dose: 3 ml Documented by: [id number] Admin: 08/12/19 20:03 Dose: 3 ml Documented by: [id number] Diltiazem HCl 125 mg/ Dextrose 125 mls @ 10 mls/hr IV .[id number] [facility]; Protocol Stop: 09/11/19 13:59 Last Titration: 08/13/19 03:45 Dose: 10 mg/hr, 10 mls/hr Documented by: [id number] Cosigned by: [id number] Admin: 08/13/19 03:45 Dose: 10 mg/hr, 10 mls/hr Documented by: [id number] Cosigned by: [id number] Titration: 08/12/19 18:55 Dose: 10 mg/hr, 10 mls/hr Documented by: [id number] Cosigned by: [id number] Titration: 08/12/19 18:20 Dose: 10 mg/hr, 10 mls/hr Documented by: [id number] Admin: 08/12/19 16:21 Dose: 5 mg/hr, 5 mls/hr Documented by: [id number] Cosigned by: [id number] Heparin Sodium/Dextrose (Heparin Sodium/Dextrose) 25,000 units in 500 mls @ 23 mls/hr IV .[id number] [facility]; Protocol Stop: 09/11/19 13:59 Last Titration: 08/13/19 06:00 Dose: 1,000 units/hr, 20 mls/hr Documented by: [id number] Cosigned by: [id number] Titration: 08/13/19 05:30 Dose: 0 units/hr, 0 mls/hr Documented by: [id number] Cosigned by: [id number] Titration: 08/12/19 18:55 Dose: 1,150 units/hr, 23 mls/hr Documented by: [id number] Cosigned by: [id number] Admin: 08/12/19 17:23 Dose: 1,150 units/hr, 23 mls/hr Documented by: [id number] Cosigned by: [id number] Piperacillin Sod/Tazobactam (Sod 3.375 gm/ Dextrose) 115 mls @ 28.75 mls/hr IV Q8H [facility]; Protocol Stop: 08/19/19 17:59 Last Infusion: 08/13/19 06:34 Dose: 0 mls/hr Documented by: [id number] Admin: 08/13/19 02:29 Dose: 28.8 mls/hr Documented by: [id number] Infusion: 08/12/19 21:15 Dose: 0 mls/hr Documented by: [id number] Infusion: 08/12/19 18:55 Dose: 28.8 mls/hr Documented by: [id number] Admin: 08/12/19 17:07 Dose: 28.8 mls/hr Documented by: [id number] Furosemide 20 mg/ Syringe 2 mls @ 4 mls/min IV [id number] [facility] Stop: 09/11/19 17:14 Last Admin: 08/12/19 17:07 Dose: 4 mls/min Documented by: [id number] Metoprolol Tartrate (Lopressor) 12.5 mg PO BID [facility] Stop: 09/11/19 20:59 Last Admin: 08/12/19 20:32 Dose: 12.5 mg Documented by: [id number] Discontinued Medications Albuterol (Duoneb) 3 ml NEB NOW STA Stop: 08/12/19 12:01 Last Admin: 08/12/19 12:13 Dose: 3 ml Documented by: [id number] Albuterol (Duoneb) 3 ml NEB Q4R [facility] Stop: 09/11/19 14:59 Last Admin: 08/12/19 15:18 Dose: 3 ml Documented by: [id number] Diltiazem HCl (Cardizem) 15 mg IV NOW STA Stop: 08/12/19 13:57 Last Admin: 08/12/19 14:12 Dose: 15 mg Documented by: [id number] Cosigned by: [id number] Diltiazem HCl (Cardizem) Confirm Administered Dose 25 mg IV .STK-MED ONE Stop: 08/12/19 13:59 Last Admin: 08/12/19 16:10 Dose: Not Given Documented by: [id number] Furosemide (Lasix) Confirm Administered Dose 40 mg IV .STK-MED ONE Stop: 08/12/19 13:56 Last Admin: 08/12/19 13:59 Dose: Not Given Documented by: [id number] Heparin Sodium/Dextrose () 1 ea IV ONE ONE; Protocol Stop: 08/12/19 13:57 Last Admin: 08/12/19 16:20 Dose: 1 ea Documented by: [id number] Piperacillin Sod/Tazobactam Sod (Zosyn) 4.5 gm in 120 mls @ 240 mls/hr IV NOW ONE Stop: 08/12/19 12:54 Last Infusion: 08/12/19 13:12 Dose: 0 mls/hr Documented by: [id number] Admin: 08/12/19 12:36 Dose: 240 mls/hr Documented by: [id number] Sodium Chloride (Nss 1000ml) 1,000 mls @ 999 mls/hr IV .[id number] ONE Stop: 08/12/19 13:25 Last Infusion: 08/12/19 13:33 Dose: 0 mls/hr Documented by: [id number] Admin: 08/12/19 12:30 Dose: 999 mls/hr Documented by: [id number] Furosemide 40 mg/ Syringe 4 mls @ 4 mls/min IV ONE ONE Stop: 08/12/19 13:30 Last Admin: 08/12/19 15:38 Dose: Not Given Documented by: [id number] Miscellaneous Information (Consult) 1 ea N/A UD PRN PRN Reason: Consult Stop: 09/11/19 12:24 Last Admin: 08/12/19 12:31 Dose: 1 ea Documented by: [id number] Perflutren Lipid Microsphere (Definity) 2 ml IV ONCE ONE Stop: 08/12/19 16:35 Last Admin: 08/12/19 16:34 Dose: 2 ml Documented by: [id number] Medical Decision Making Differential Diagnosis Differential diagnoses includes but is not limited to pneumonia, bronchitis, COPD/Asthma exacerbation, pneumothorax, pulmonary embolism, congestive heart failure, acute coronary syndrome, amongst others. Medical Records Attestation: I reviewed the patient's medical records. Home Medications Current Medication List: was personally reviewed by me Laboratory Data Attestation: I reviewed the patient's lab results. Result diagrams: 08/13/19 04:30 08/13/19 04:30 Lab Results 08/12/19 08/12/19 08/12/19 Range/Units 11:49 11:49 11:49 WBC 6.71 (4.8-10.8) K/uL RBC 4.15 L (4.2-5.4) M/uL Hgb 12.8 (12.0-16.0) g/dL POC Hgb (12.0-16.0) g/dl Hct 45.5 (37-47) % POC Hct (37-47) % MCV 109.6 H (80-100) fL MCH 30.8 (25-34) pg MCHC 28.1 L (32-36) g/dL RDW Std Deviation 57.8 H (36.4-46.3) fL RDW Coeff of Tam 14.4 (11.5-14.5) % Plt Count 208 (130-400) K/uL MPV 10.1 (7.4-10.4) fL Immature Gran % (Auto) 0.1 % Neut % (Auto) 83.3 % Lymph % (Auto) 4.8 % Letcher % (Auto) 11.8 % Eos % (Auto) 0.0 % Baso % (Auto) 0.0 % Immature Gran # (Auto) 0.01 (0.00-0.02) K/uL Neut # (Auto) 5.59 (1.4-6.5) K/uL Lymph # (Auto) 0.32 L (1.2-3.4) K/uL Letcher # (Auto) 0.79 H (0.11-0.59) K/uL Eos # (Auto) 0.00 (0-0.5) K/uL Baso # (Auto) 0.00 (0-0.2) K/uL Hypochromasia Present Basophilic Stippling 1+ Stomatocytes 1+ ESR (0-21) mm/hr PT 10.9 (9.0-12.0) Seconds INR 1.1 (0.9-1.1) APTT 24.2 (21.0-31.0) Seconds PTT Ratio 0.9 VBG pH (7.36-7.41) VBG pCO2 (38-50) mmHg VBG pO2 mmHg VBG HCO3 mmol/L VBG O2 Saturation % VBG Base Excess mEq/L Barometric Pressure mm/Hg POC Sodium (135-144) mEq/L Sodium 141 (136-145) mmol/L POC Potassium (3.3-5.0) mEq/L Potassium 4.9 (3.5-5.1) mmol/L POC Chloride (101-112) mEq/L Chloride 95 L (98-107) mmol/L Carbon Dioxide 44 H* (21-32) mmol/L POC Total CO2 (24-31) mEq/l Anion Gap 3.0 (3-11) POC Anion Gap (16-25) mmol/L POC BUN (7-18) mg/dl BUN 62 H (7-18) mg/dl Creatinine 1.12 (0.6-1.2) mg/dl POC Creatinine (0.6-1.3) mg/dl Est Cr Clr Drug Dosing 36.5 ml/min Est GFR ( Amer) 51.2 Est GFR (Non-Af Amer) 44.1 BUN/Creatinine Ratio 55.2 H (10-20) Glucose 129 H (70-99) mg/dl POC Glucose (other) (70-99) mg/dl Lactate (0.4-2.0) mmol/L Calcium 9.0 (8.5-10.1) mg/dl POC Ioniz Calcium Angeliac (1.12-1.32) mmol/l Magnesium 2.5 H (1.8-2.4) mg/dl Total Bilirubin 0.5 (0.2-1) mg/dl AST 56 H (15-37) U/L ALT 136 H (12-78) U/L Alkaline Phosphatase 120 H (45-117) U/L Troponin I 0.022 (0-0.045) ng/ml C-Reactive Protein < 0.29 (0-0.29) mg/dl NT-Pro-B Natriuret Pep 4246 H (0-1800) pg/ml Total Protein 6.8 (6.4-8.2) gm/dl Albumin 3.9 (3.4-5.0) gm/dl Globulin 2.9 (2.5-4.0) gm/dl Albumin/Globulin Ratio 1.3 (0.9-2) Procalcitonin (0-0.5) ng/ml Random Cortisol mcg/dl 08/12/19 08/12/19 08/12/19 Range/Units 11:49 11:49 11:59 WBC (4.8-10.8) K/uL RBC (4.2-5.4) M/uL Hgb (12.0-16.0) g/dL POC Hgb (12.0-16.0) g/dl Hct (37-47) % POC Hct (37-47) % MCV (80-100) fL MCH (25-34) pg MCHC (32-36) g/dL RDW Std Deviation (36.4-46.3) fL RDW Coeff of Tam (11.5-14.5) % Plt Count (130-400) K/uL MPV (7.4-10.4) fL Immature Gran % (Auto) % Neut % (Auto) % Lymph % (Auto) % Letcher % (Auto) % Eos % (Auto) % Baso % (Auto) % Immature Gran # (Auto) (0.00-0.02) K/uL Neut # (Auto) (1.4-6.5) K/uL Lymph # (Auto) (1.2-3.4) K/uL Letcher # (Auto) (0.11-0.59) K/uL Eos # (Auto) (0-0.5) K/uL Baso # (Auto) (0-0.2) K/uL Hypochromasia Basophilic Stippling Stomatocytes ESR 12 (0-21) mm/hr PT (9.0-12.0) Seconds INR (0.9-1.1) APTT (21.0-31.0) Seconds PTT Ratio VBG pH (7.36-7.41) VBG pCO2 (38-50) mmHg VBG pO2 mmHg VBG HCO3 mmol/L VBG O2 Saturation % VBG Base Excess mEq/L Barometric Pressure mm/Hg POC Sodium (135-144) mEq/L Sodium (136-145) mmol/L POC Potassium (3.3-5.0) mEq/L Potassium (3.5-5.1) mmol/L POC Chloride (101-112) mEq/L Chloride (98-107) mmol/L Carbon Dioxide (21-32) mmol/L POC Total CO2 (24-31) mEq/l Anion Gap (3-11) POC Anion Gap (16-25) mmol/L POC BUN (7-18) mg/dl BUN (7-18) mg/dl Creatinine (0.6-1.2) mg/dl POC Creatinine (0.6-1.3) mg/dl Est Cr Clr Drug Dosing ml/min Est GFR ( Amer) Est GFR (Non-Af Amer) BUN/Creatinine Ratio (10-20) Glucose (70-99) mg/dl POC Glucose (other) (70-99) mg/dl Lactate (0.4-2.0) mmol/L Calcium (8.5-10.1) mg/dl POC Ioniz Calcium Angelica (1.12-1.32) mmol/l Magnesium (1.8-2.4) mg/dl Total Bilirubin (0.2-1) mg/dl AST (15-37) U/L ALT (12-78) U/L Alkaline Phosphatase (45-117) U/L Troponin I (0-0.045) ng/ml C-Reactive Protein (0-0.29) mg/dl NT-Pro-B Natriuret Pep (0-1800) pg/ml Total Protein (6.4-8.2) gm/dl Albumin (3.4-5.0) gm/dl Globulin (2.5-4.0) gm/dl Albumin/Globulin Ratio (0.9-2) Procalcitonin 0.05 (0-0.5) ng/ml Random Cortisol 36.71 mcg/dl 08/12/19 08/12/19 08/12/19 Range/Units 12:18 12:26 12:26 WBC (4.8-10.8) K/uL RBC (4.2-5.4) M/uL Hgb (12.0-16.0) g/dL POC Hgb 15.0 (12.0-16.0) g/dl Hct (37-47) % POC Hct 44 (37-47) % MCV (80-100) fL MCH (25-34) pg MCHC (32-36) g/dL RDW Std Deviation (36.4-46.3) fL RDW Coeff of Tam (11.5-14.5) % Plt Count (130-400) K/uL MPV (7.4-10.4) fL Immature Gran % (Auto) % Neut % (Auto) % Lymph % (Auto) % Letcher % (Auto) % Eos % (Auto) % Baso % (Auto) % Immature Gran # (Auto) (0.00-0.02) K/uL Neut # (Auto) (1.4-6.5) K/uL Lymph # (Auto) (1.2-3.4) K/uL Letcher # (Auto) (0.11-0.59) K/uL Eos # (Auto) (0-0.5) K/uL Baso # (Auto) (0-0.2) K/uL Hypochromasia Basophilic Stippling Stomatocytes ESR (0-21) mm/hr PT (9.0-12.0) Seconds INR (0.9-1.1) APTT (21.0-31.0) Seconds PTT Ratio VBG pH 7.15 L (7.36-7.41) VBG pCO2 132 H (38-50) mmHg VBG pO2 52 mmHg VBG HCO3 44 mmol/L VBG O2 Saturation 80.6 % VBG Base Excess 10.1 mEq/L Barometric Pressure 733.2 mm/Hg POC Sodium 140 (135-144) mEq/L Sodium (136-145) mmol/L POC Potassium 5.1 H (3.3-5.0) mEq/L Potassium (3.5-5.1) mmol/L POC Chloride 89 L (101-112) mEq/L Chloride (98-107) mmol/L Carbon Dioxide (21-32) mmol/L POC Total CO2 > 40 H* (24-31) mEq/l Anion Gap (3-11) POC Anion Gap 11.0 L (16-25) mmol/L POC BUN 69 H (7-18) mg/dl BUN (7-18) mg/dl Creatinine (0.6-1.2) mg/dl POC Creatinine 1.3 (0.6-1.3) mg/dl Est Cr Clr Drug Dosing ml/min Est GFR ( Amer) Est GFR (Non-Af Amer) BUN/Creatinine Ratio (10-20) Glucose (70-99) mg/dl POC Glucose (other) 127 H (70-99) mg/dl Lactate 1.3 (0.4-2.0) mmol/L Calcium (8.5-10.1) mg/dl POC Ioniz Calcium Angelica 1.11 L (1.12-1.32) mmol/l Magnesium (1.8-2.4) mg/dl Total Bilirubin (0.2-1) mg/dl AST (15-37) U/L ALT (12-78) U/L Alkaline Phosphatase (45-117) U/L Troponin I (0-0.045) ng/ml C-Reactive Protein (0-0.29) mg/dl NT-Pro-B Natriuret Pep (0-1800) pg/ml Total Protein (6.4-8.2) gm/dl Albumin (3.4-5.0) gm/dl Globulin (2.5-4.0) gm/dl Albumin/Globulin Ratio (0.9-2) Procalcitonin (0-0.5) ng/ml Random Cortisol mcg/dl Imaging Data Radiologist's Impression: Radiology results as stated below per my review and the radiologist's interpretation: SINGLE VIEW CHEST CLINICAL HISTORY: Sepsis. FINDINGS: An AP, portable, upright chest radiograph is compared to study dated 02/21/2019. The examination is significantly degraded by portable technique and patient rotation. The heart is enlarged and there is atherosclerotic calcificati on of the thoracic aorta. There is mild pulmonary vascular congestion. There is chronic elevation right hemidiaphragm. There is a right pleural effusion and bibasilar consolidation. No pneumothorax is seen. The skeletal structures are osteopenic. The bony thorax is grossly intact. Advanced degenerative change is seen in the shoulders and thoracic spine. Surgical clips are noted along the right chest wall. IMPRESSION: 1. Cardiomegaly with mild pulmonary vascular congestion. 2. Right pleural effusion. This is similar to 02/21/2019. 3. There is bibasilar consolidation. This could present atelectasis and/or pneumonia/aspiration pneumonitis. Clinical correlation will be required and radiographic follow-up to resolution is recommended. Electronically signed by: John Bentley M.D. 08/12/2019 12:26 PM ECG Data Attestation: I personally reviewed and interpreted this ECG as follows: Indication: SOB/dyspnea Rate (beats per minute): 148 Rhythm: atrial fibrillation Findings: + other (Low voltage throughout, Poor R wave progression) and + PVC Comparison ECG Date: from (02/21/19) Change: the following changes noted (PVC and poor R wave progression is new) Blood Pressure Blood Pressure Findings: Normal blood pressure Blood Pressure Disposition: further management by hospitalist DONALDO Narrative The patient is an 89-year-old female who presented to the emergency department for an evaluation of difficulty breathing. The patient was noted to have change in her mental status as well as difficulty breathing by family members. She arrived to the emergency department by ambulance. She was found to be tachycardic and hypotensive. She appears to have atrial fibrillation although given her respiratory history this could be multifocal atrial tachycardia with significant tachycardic component. She was treated with IV fluids although I suspect she may have had some volume overload. She was also treated with IV antibiotics and was placed on BiPAP for respiratory failure. The patient's condition slowly improved. I discussed the patient's condition with her although it was difficult with her alteration in mental status. I also discussed her case with the on-call wood preserving plant laborer as well as the on-call [facility] hospitalist group. They have agreed to evaluate the patient in the emergency department for further management disposition. Impression & Plan Respiratory failure, Respiratory acidosis, Atrial fibrillation with RVR, Pulmonary edema, AMS (altered mental status), Hypotension Critical Care Time Critical Care Time: Yes Total Critical Care Time: 60 I have personally spent greater than 60 minutes of critical care time in the direct management of this patient. This includes bedside care, interpretation of diagnostic studies, and testing, discussion with consultants, patient, and family members, and other required patient management activities. This 60 minutes is in excess of all separately billable procedures. Discharge Plan Visit Data *Final* Discharge Date/Time: 08/12/19 14:29 Chief Complaint: Shortness of Breath/Dyspnea ED Provider: Kristofer Salazar Discharge Problem: Respiratory failure, Respiratory acidosis, Atrial fibrillation with RVR, Pulmonary edema, AMS (altered mental status), Hypotension Patient Disposition: Admitted As Inpatient Discharge Instructions Interventions: ED Discharge Assessment Last Done: 08/12/19 14:29 Discharge Problem: Pulmonary edema Qualifiers: Chronicity: acute Qualified Code(s): J81.0 - Acute pulmonary edema AMS (altered mental status) Qualifiers: Altered mental status type: unspecified Qualified Code(s): R41.82 - Altered mental status, unspecified Hypotension Qualifiers: Hypotension type: unspecified hypotension type Qualified Code(s): I95.9 - Hypotension, unspecified The scribe's documentation has been prepared under my direction and personally reviewed by me in its entirety. I confirm that the note above accurately reflects all work, treatment, procedures, and medical decision making performed by me.
[2019-08-12] MEDS ORDERED: PIPERACILLIN/TAZOBACTAM 4.5 GM/120 ML BAG IV ONE (12:25)
[2019-08-12] MEDS ORDERED: SODIUM CHLORIDE 0.9% 1000ML 1,000 ML IV ONE (12:25)
[2019-08-12] MEDS ORDERED: PIPERACILL/TAZOBAC CONSULT ACTIVE PRN ×2 (12:25→15:28)
[2019-08-12 12:26] LABS: Alanine Aminotransferase 136 U/L (12-78); Albumin Globulin Ratio 1.3 (0.9-2); Albumin Level 3.9 gm/dl (3.4-5.0); Alkaline Phosphatase 120 U/L (45-117); Aspartate Aminotransferase 56 U/L (15-37); BUN Creatinine Ratio 55.2 (10-20); Bilirubin,Total 0.5 mg/dl (0.2-1); Blood Urea Nitrogen 62 mg/dl (7-18); C Reactive Protein < 0.29 mg/dl (0-0.29); Carbon Dioxide 44 mmol/L (21-32); Chloride 95 mmol/L (98-107); Creatinine Clr Calc Pharmacy 36.5 ml/min; Est GFR (African American) 51.2; Est GFR (Non-African American) 44.1; Globulin 2.9 gm/dl (2.5-4.0); Glucose 129 mg/dl (70-99); INR 1.1 (0.9-1.1); Magnesium 2.5 mg/dl (1.8-2.4); NT Pro B Type Natriuretic Pept 4246 pg/ml (0-1800); Partial Thromboplastin Ratio 0.9; Partial Thromboplastin Time 24.2 Seconds (21.0-31.0); Potassium 4.9 mmol/L (3.5-5.1); Prothrombin Time 10.9 Seconds (9.0-12.0); Sodium 141 mmol/L (136-145); Total Protein 6.8 gm/dl (6.4-8.2); Troponin I 0.022 ng/ml (0-0.045)
--- NOTE | 2019-08-12 12:27 | XRay Report ---
SINGLE VIEW CHEST CLINICAL HISTORY: Sepsis. FINDINGS: An AP, portable, upright chest radiograph is compared to study dated 02/21/2019. The examina tion is significantly degraded by portable technique and patient rotation. The heart is enlarged and there is atherosclerotic calcification of the thoracic aorta. There is mild pulmonary vascular conges tion. There is chronic elevation right hemidiaphragm. There is a right pleural effusion and bibasilar consolidation. No pneumothorax is seen. The skeletal structures are osteopenic. The bony thorax is g rossly intact. Advanced degenerative change is seen in the shoulders and thoracic spine. Surgical cli ps are noted along the right chest wall. IMPRESSION: 1. Cardiomegaly with mild pulmonary vascular congestion. 2. Right pleural effusion. This is similar to 02/21/2019. 3. There is bibasilar consolidation. This could present atelectasis and/or pneumonia/aspiration pneum onitis. Clinical correlation will be required and radiographic follow-up to resolution is recommended . Electronically signed by: John Bentley M.D. 08/12/2019 12:26 PM
[2019-08-12 12:35] LABS: Hematocrit (blood only) 45.5 % (37-47); Hemoglobin 12.8 g/dL (12.0-16.0); Mean Corpuscular Hemoglobin 30.8 pg (25-34); Mean Corpuscular Hgb Conc 28.1 g/dL (32-36); Mean Corpuscular Volume 109.6 fL (80-100); Mean Platelet Volume 10.1 fL (7.4-10.4); Platelet Count 208 K/uL (130-400); RDW Coefficient of Variation 14.4 % (11.5-14.5); RDW Standard Deviation 57.8 fL (36.4-46.3); Red Blood Count 4.15 M/uL (4.2-5.4); White Blood Count 6.71 K/uL (4.8-10.8)
[2019-08-12 12:39] LABS: Base Excess VBG 10.1 mEq/L; Oxygen Saturation VBG 80.6 %; pH VBG 7.15 (7.36-7.41)
[2019-08-12 12:40] LABS: iSTAT Blood Urea Nitrogen 69 mg/dl (7-18); iSTAT Carbon Dioxide > 40 mEq/l (24-31); iSTAT Chloride 89 mEq/L (101-112); iSTAT Creatinine 1.3 mg/dl (0.6-1.3); iSTAT Glucose 127 mg/dl (70-99); iSTAT Hematocrit 44 % (37-47); iSTAT Ionized Calcium 1.11 mmol/l (1.12-1.32); iSTAT Potassium 5.1 mEq/L (3.3-5.0); iSTAT Sodium 140 mEq/L (135-144)
[2019-08-12 13:02] LABS: Basophilic Stippling 1+; Hypochromasia Present; Immature Granulocytes # (auto) 0.01 K/uL (0.00-0.02); Immature Granulocytes % (auto) 0.1 %; Lymphocytes # (auto) 0.32 K/uL (1.2-3.4); Lymphocytes % (auto) 4.8 %; Monocytes # (auto) 0.79 K/uL (0.11-0.59); Monocytes % (auto) 11.8 %; Neutrophils # (auto) 5.59 K/uL (1.4-6.5); Neutrophils % (auto) 83.3 %; Stomatocytes 1+
[2019-08-12] MEDS ORDERED: FUROSEMIDE 40 MG in SYRINGE 0 ML IV ONE (13:29)
[2019-08-12] MEDS ORDERED: METOPROLOL TARTRATE 1 MG/ML VIAL IV PRN (13:35)
[2019-08-12] MEDS ORDERED: ONDANSETRON INJ 2 MG/ML 2 ML VIAL IV PRN (13:37)
[2019-08-12] MEDS ORDERED: ICU PROTOCOL FOR HYPERGLYCEMIA PRN ×2 (13:38→15:28)
[2019-08-12] MEDS ORDERED: ACETAMINOPHEN 65 ML IV PRN (13:45)
[2019-08-12] MEDS ORDERED: FUROSEMIDE 40 MG/4 ML VIAL IV ONE (13:55)
[2019-08-12] MEDS ORDERED: dilTIAZem HCl 5 MG/ML 5 ML VIAL IV STA (13:56)
[2019-08-12] MEDS ORDERED: Heparin IV Standard *NO* Bolus IV ONE (13:56)
[2019-08-12] MEDS ORDERED: dilTIAZem HCl 5 MG/ML 5 ML VIAL IV ONE (13:58)
--- NOTE | 2019-08-12 14:19 | Critical Care Consultation ---
Date of Consultation August 12, 2019 Assessment & Plan (1) Acute on chronic respiratory failure with hypoxia and hypercapnia: -- Acute on chronic hypoxic hypercapnic respiratory failure Likely sec to COPD exacerbation with a component of sleep apnea Continue with inhaled bronchodilators, antibiotics Maintain SPO2 between 88 to 92% BiPAP nightly and as needed shortness of breath Follow-up ABG Patient is awake and alert and is able to protect her airway. Explained to the patient that if there is any clinical deterioration in the respiratory status will need intubation. Patient states that if there is needed to intubate to keep her alive do so but do not keep her on the vent forever. Present on Admission?: Yes (2) AMS (altered mental status): Likely secondary to hypercapnia. Aspiration precautions. Monitor Present on Admission?: Yes (3) Atrial fibrillation with RVR: New onset A. fib Load with diltiazem 50 mg followed by Cardizem drip Goal heart rate less than 110 ChadVasc score 5 There is no contraindication to anticoagulation We will start the patient on heparin drip Present on Admission?: Yes (4) Pulmonary hypertension: Likely type III, component of type II cannot be excluded We will get official 2D echo Very cautious diuresis, do not want to decrease the preload. (5) COPD exacerbation: Continue with inhaled therapy Antibiotic Keep O2 saturation between 88 to 92% No need for steroids for the time being. Present on Admission?: Yes (6) HTN (hypertension): (7) Dyslipidemia: History of Present Illness Reason for Consultation: Altered mental status, hypercapnic respiratory failure History of Present Illness 89-year-old female with past medical history of chronic hypoxic and hypercapnic respiratory failure on 2 L home O2, COPD, hypertension was brought into the ED as the patient is found the patient to be very lethargic and confused. In the ED patient's PCO2 was found to be 132. Patient was also found to be new onset A. fib with RVR with heart rate in 160s. Initially his systolic blood pressure was on the lower side but she responded to fluids given by the ED. When I see was called patient was already on BiPAP. Patient was awake and alert in respiratory distress but was answering all the questions appropriately. Her confusion was resolving. Patient states that she has BiPAP at home and she uses it on and off. Patient denies any cough, no chest pain, no fever, no chills, no dysuria, no diarrhea, no headache, no recent travel history. She has been noticing swelling of her bilateral lower extremity which has been going on for the last couple of weeks. Social history: Ex-smoker, 20 -pack-year smoking history quit approximately 30 years ago, no illicit drug use, no alcohol, used to be homemaker Allergies Allergy/AdvReac Type Severity Reaction Status Date / Time No Known Allergies Allergy Unknown Verified 08/12/19 14:53 Home Medications Home Medications Medication Instructions Recorded Confirmed Type PreserVision AREDS-2 1 tab PO QAM 12/28/18 08/12/19 History acetaminophen [Tylenol Extra 500 mg PO Q6H PRN 12/28/18 08/12/19 History Strength] albuterol sulfate 2 puff INHALATION Q4H PRN 12/28/18 08/12/19 History aspirin 81 mg PO QAM 12/28/18 08/12/19 History cetirizine [Zyrtec] 10 mg PO QAM 12/28/18 08/12/19 History hydrochlorothiazide 12.5 mg PO QAM 12/28/18 08/12/19 History losartan 25 mg PO QAM 12/28/18 08/12/19 History potassium chloride 10 meq PO QAM 12/28/18 08/12/19 History ipratropium-albuterol 3 ml INH Q8H PRN #90 ml 02/24/19 08/12/19 Rx furosemide 10 mg PO DAILY 08/12/19 08/12/19 History metoprolol succinate 25 mg PO DAILY 08/12/19 08/12/19 History metronidazole 1 applic TOPICAL DAILY 08/12/19 08/12/19 History tiotropium bromide [Spiriva 2 inh INHALATION DAILY 08/12/19 08/12/19 History Respimat] Patient History Medical History Chronic respiratory failure with hypoxia, on home O2 therapy (Chronic) Macular degeneration (Chronic) COPD, moderate (Chronic) History of breast cancer (Resolved) s/p partial mastectomy 1998 HTN (hypertension) (Chronic) Dyslipidemia (Chronic) Influenza A (Resolved) Surgical History History of bilateral knee arthroplasty (Resolved) H/O partial mastectomy (Resolved) "right SLN BX , Dr. Stockton at [facility] 1998" S/P rotator cuff repair (Resolved) Family History Father Cancer colon Diabetes Mother Glaucoma Other Family history non-contributory Social History Preferred Language: [place] Communication Ability: Effective Rack Puller Required: No Beliefs That Will Affect Care: None marital status: Current Living Situation: Alone current occupational status: retired Other Information That Helps Us Care for You: No Feels Safe at Home: Yes Safety Concerns: Feels Safe At This Time Smoking Status: Former smoker packs per day: 1 ; Years Smoked: 10 ; Do You Dip or Chew Tobacco: No ; Number of Years Since Quit: 50 ; Second Hand Exposure: No ; Tobacco Cessation Education Requested by Patient: No Hx Alcohol Use: Yes Alcohol type: hard liquor Alcohol Intake Frequency Comment: 4oz daily Hx Substance Use: No Childhood Exposure to Second-Hand Smoke: No Review of Systems Review of Systems: All systems reviewed & are unremarkable except as noted in HPI & below Physical Exam Physical Exam: Constitutional: Mild respiratory distress, patient on BiPAP at the time of examination HEENT: EOMI, PERRLA, short neck, positive JVD Respiratory system: Decreased air entry on the right side, minimal crackles, no wheeze, no rhonchi CVS: S1-S2 positive, no murmurs or gallops, irregular rhythm Abdomen: Soft, nontender, nondistended, positive bowel sounds x4 Extremities: +2 pulses bilaterally radialis/ dorsalis pedis, +3 pitting edema bilateral lower extremity, no cyanosis Neuro: Awake alert oriented x3, following commands. Psych: Normal mood and affect G/U: No Payan Bedside ultrasound: RVOT enlarged, no pericardial tamponade, irregular contraction of the heart, ejection fraction seems okay but not able to say based on A. fib. Mild right-sided pleural effusion appreciated. There is peritoneal fluid as well. Positive B-lines appreciated bilaterally posteriorly. Lymphatic: no cervical or axillary lymphadenopathy Results & Data Vital Signs (Past 12 Hours) Vital Signs Temp Pulse Resp BP Pulse Ox 08/12/19 13:17 141 H 18 110/73 97 08/12/19 13:15 147 H 17 95 10/01/19 13:07 153 H 22 92 08/12/19 13:00 153 H 25 H 120/61 99 08/12/19 12:45 139 H 53 H 95/69 L 94 08/12/19 12:39 152 H 30 H 80/65 L 98 08/12/19 12:30 173 H 33 H 99 08/12/19 12:22 95 08/12/19 12:19 92 08/12/19 12:15 150 H 39 H 98 08/12/19 12:08 161 H 26 H 83/73 L 100 08/12/19 12:00 36.4 C L 158 H 19 99/80 L 93 08/12/19 11:42 160 H 25 H 90/48 L 97 Laboratory Results 08/12/19 11:49 08/12/19 11:49 Macrocytic anemia. Diagnostic Findings Chest x-ray: Portable film. Poor inspiratory effort. Haziness bilateral lower lobes. Elevated right hemidiaphragm. Chest x-ray was compared to one done in December which also showed elevated right hemidiaphragm. There is pulmonary vascular congestion appreciated. PG Care Time/CCT Total # of Minutes Spent Total Time Spent with Patient: Total time spent is greater than 50% in coordin ation of care (as documented) at patient's floor/unit and/or counseling patient: Critical Care Time: Yes Total Critical Care Time: 65 (1) AMS (altered mental status) Altered mental status type: unspecified Qualified Code(s): R41.82 - Altered mental status, unspecified
--- NOTE | 2019-08-12 14:28 | History & Physical Report ---
Date of Service August 12, 2019 Assessment & Plan (1) Acute on chronic respiratory failure with hypoxia and hypercapnia: (2) Metabolic encephalopathy: (3) Respiratory acidosis: This is a 89-year-old female who has a significant past medical history of chronic respiratory failure with hypoxia and hypercapnia on 2 L of O2, moderate COPD, HTN, HLD, history of breast CA, macular degeneration who presents to [facility] ED after significant drowsiness that occurred this mo rning prior to arrival. Currently patient feels her breathing status has improved after being on BiPAP. She denies any complaints of pain. In ED patient was noted to be in atrial fibrillation with rapid ventricular rate heart rates 140s to 160s, intermittent hypotension with systolic blood pressures in the 80s to 100s. Her initial VBG revealed pH of 7.15, PCO2 132, BUN 62, creatinine 1.12, AST 56, ALT 136, alk phos 120, troponin 0 0.022, BNP elevated 4246 Her procalcitonin was WNL. She did not have an elevated white count and she was afebrile throughout ER visit. Chest x-ray concerning for cardiomegaly with mild primary vascular congestion, right pleural effusion noted which was similar in prior exam 02/21/2019. Bibasilar consolidation also noted on plain film which could represent ate lectasis and/or pneumonia/aspiration pneumonitis. Pt does meet SIRS/Sepsis criteria on arrival with HR 90 and RR > 20 requiring bipap Lactic acid WNL, pt does not appear to be septic/infectious - wbc wnl, afebrile, procal wnl received IVF in ED along with broad spectrum IV Zosyn Admit to ICU IV diltiazem bolus/gtt ordered Iv heparin gtt ordered obtain echocardiogram Cardiology Consult placed once improvement in HR/BP will need appropriate diuresis trend trop q6h repeat ecg repeat CXR in a.m. NPO while on bipap, ADAT when off bipap to heart healthy, low sodium (4) Atrial fibrillation with RVR: check TSH maybe driven from acute respiratory failure/CHF plan as above Diltiazem bolus/gtt Heparin gtt Chadsvas 5 echocardiogram ordered (5) Hypotension: as above (6) COPD exacerbation: ? COPD exac as component for acute/chr respiratory failure afebrile, WBC normal, procalcitonin WNL does not appear to be infectious continue IV antibiotics until ruled out nebs ordered bipap per protocl (7) CHF (congestive heart failure): Last echocardiogram in 2014 revealed preserved EF 50 to 55%, grade 1 diastolic dysfunction, mildly enlarged left atrium Baseline proBNP as outpatient 02/2019 297, proBNP today was 4246 Pt with s/sx of volume overload obtain echocardiogram Bedside U/S performed in ED by Dr. Kasper, initial concern for dilated right ventricle; therefore being cautious on diuresis until HR and BP stabilizes 2D echo ordered cardiology consulted: Dr. Marinelli (8) ELIDA (acute kidney injury): Baseline creatinine 0.5 BUN/creatinine 62 and 1.12 Likely in setting of prerenal/ATN due to hypotension from rapid A. fib Monitor renal function (9) Elevated LFTs: AST 56, ALT 136, alk phos 120, T bili 0.5 No abdominal pain and without abdominal complaint May be in setting of hypotension in setting of rapid A. fib Obtain limited abdominal ultrasound (10) HTN (hypertension): on hctz, lasix, metoprolol as outpt will hold in setting of hypotension due to rapid afib monitor closely (11) Dyslipidemia: not on statin as outpt obtain fasting lipid panel in am. (12) Alcohol use: Pt drinks 4oz of vodka daily AWSS protocol initiated monitor for s/sx of withdrawal (13) DVT prophylaxis: SCD/TEDS, IV Heparin Disposition: Admitted to ICU, case management consulted Follow up: PCP Dr. Mendez upon discharge Patient seen and examined in collaboration with Dr. Greenwood, please see addendum Starting 08/13/19 patient will be under the care of Dr. Forbes History of Present Illness Chief Complaint: Significant drowsiness prior to arrival. Primary Care Provider: Dandre Mendez, This is a 89-year-old female who has a significant past medical history of chronic respiratory failure with hypoxia and hypercapnia on 2 L of O2, moderate COPD, HTN, HLD, history of breast CA, macular degeneration who presents to [facility] ED after significant drowsiness that occurred this morning prior to arrival. Patient states when she woke up this morning she had significant difficulty getting awake. Whenever she became awake she walked to the bathroom and sat on the toilet. Notes that she fell asleep on the toilet and was having a hard time staying awake. Her neighbor came to check on her and noted her to be very drowsy and somnolent and having difficulty breathing, EMS was called. Currently patient complains of shortness of breath, increased lower extremity swelling x2 to 3 weeks, orthopnea, PND. At baseline she does ambulate with a cane but does get short of breath with minimal activity. She denies any recent fever, chills, sweats, lightheadedness, dizziness, syncope, chest pain, palpitations, cough, hemoptysis, nausea, vomiting, diarrhea, abdominal pain, dysuria, increased urgency or frequency with urination. Overall feels her appetite has been adequate up until today. She does not have a scale and therefore has not weighed herself. She denies past medical history of atrial fibrillation or a flutter, history of CEZAR or on nocturnal device such as CPAP or BiPAP. She denies any history of heart failure. Her neighbors are at bedside. Currently patient feels her breathing status has improved after being on BiPAP. She denies any complaints of pain. In ED patient was noted to be in atrial fibrillation with rapid ventricular rate heart rates 140s to 160s, intermittent hypotension with systolic blood pressures in the 80s to 100s. Her initial VBG revealed pH of 7.15, PCO2 132, BUN 62, creatinine 1.12, AST 56, ALT 136, alk phos 120, troponin 0 0.022, BNP elevated 4246 Her procalcitonin was WNL. She did not have an elevated white count and she was afebrile throughout ER visit. Chest x-ray concerning for cardiomegaly with mild primary vascular congestion, right pleural effusion noted which was similar in prior exam 02/21/2019. Bibasilar consolidation also noted on plain film which could represent atelectasis and/or pneumonia/aspiration pneumonitis. In ED Pt received dose of IV Zosyn along with IVF. Allergies Allergy/AdvReac Type Severity Reaction Status Date / Time No Known Allergies Allergy Unknown Verified 08/12/19 14:53 Home Medications Home Medications Medication Instructions Recorded Confirmed Type PreserVision AREDS-2 1 tab PO QAM 12/28/18 08/12/19 History acetaminophen [Tylenol Extra 500 mg PO Q6H PRN 12/28/18 08/12/19 History Strength] albuterol sulfate 2 puff INHALATION Q4H PRN 12/28/18 08/12/19 History aspirin 81 mg PO QAM 12/28/18 08/12/19 History cetirizine [Zyrtec] 10 mg PO QAM 12/28/18 08/12/19 History hydrochlorothiazide 12.5 mg PO QAM 12/28/18 08/12/19 History losartan 25 mg PO QAM 12/28/18 08/12/19 History potassium chloride 10 meq PO QAM 12/28/18 08/12/19 History ipratropium-albuterol 3 ml INH Q8H PRN #90 ml 02/24/19 08/12/19 Rx furosemide 10 mg PO DAILY 08/12/19 08/12/19 History metoprolol succinate 25 mg PO DAILY 08/12/19 08/12/19 History metronidazole 1 applic TOPICAL DAILY 08/12/19 08/12/19 History tiotropium bromide [Spiriva 2 inh INHALATION DAILY 08/12/19 08/12/19 History Respimat] Past Med/Surg History Medical History Chronic respiratory failure with hypoxia, on home O2 therapy (Chronic) Macular degeneration (Chronic) COPD, moderate (Chronic) History of breast cancer (Resolved) s/p partial mastectomy 1998 HTN (hypertension) (Chronic) Dyslipidemia (Chronic) Influenza A (Resolved) Surgical History History of bilateral knee arthroplasty (Resolved) H/O partial mastectomy (Resolved) "right SLN JUAN , Dr. Stockton at [facility] 1998" S/P rotator cuff repair (Resolved) Family History Father Cancer colon Diabetes Mother Glaucoma Other Family history non-contributory Social History Preferred Language: [place] Communication Ability: Effective Cloth Seconds Sorter Required: No Beliefs That Will Affect Care: None marital status: Current Living Situation: Alone current occupational status: retired Other Information That Helps Us Care for You: No Feels Safe at Home: Yes Safety Concerns: Feels Safe At This Time Smoking Status: Former smoker packs per day: 1 ; Years Smoked: 10 ; Do You Dip or Chew Tobacco: No ; Number of Years Since Quit: 50 ; Second Hand Exposure: No ; Tobacco Cessation Education Requested by Patient: No Hx Alcohol Use: Yes Alcohol type: hard liquor Alcohol Intake Frequency Comment: 4oz daily Hx Substance Use: No Childhood Exposure to Second-Hand Smoke: No Review of Systems Review of Systems: All systems reviewed & are unremarkable except as noted in HPI & below Physical Exam Physical Exam: Constitutional: Critically ill, elderly female, respiratory distress on BiPAP, WD/WN, vitals as above, sitting up in bed, pleasant, able to answer questions appropriately Head: Normocephalic, Atraumatic Eyes: PERRL, conjunctivae normal, anicteric sclerae ENMT: external ear and nose normal, oropharynx obscured due to BiPAP Neck: trachea midline, no thyromegaly normal visual inspection Respiratory: Increased respiratory effort, absent breath sounds right midlung and lower lobe, left lung clear to auscultation with scattered bibasilar wheeze and rhonchi, no rales. On BiPAP. no accessory muscle use Cardiovascular: Irregular rate, irregular rhythm, due to tachycardia inability to evaluate for murmur, +3 lower extremity edema pitting bilaterally, no erythema, warmth. Negative Homans sign. Vessels: no JVD or carotid bruit Chest: normal inspection of chest Abdomen: normal bowel sounds, soft, nontender, no hepatosplenomegaly Musculoskeletal: no cyanosis or clubbing, extremities motor strength 5/5 Skin: no rashes, warm and dry normal turgor Neurologic: PERRL, EOMI, accommodation nl, no face palsy, no dysarthria CN's II-XI intact bilaterally and moves all extremities Psychiatric: A+Ox3, euthymic affect Lymphatic: no cervical or axillary lymphadenopathy : deferred Results & Data Vital Signs (Past 12 Hours) Vital Signs Temp Pulse Resp BP Pulse Ox 08/12/19 13:17 141 H 18 110/73 97 08/12/19 13:15 147 H 17 95 08/12/19 13:07 153 H 22 92 08/12/19 13:00 153 H 25 H 120/61 99 08/12/19 12:45 139 H 53 H 95/69 L 94 08/12/19 12:39 152 H 30 H 80/65 L 98 08/12/19 12:30 173 H 33 H 99 08/12/19 12:22 95 08/12/19 12:19 92 08/12/19 12:15 150 H 39 H 98 08/12/19 12:08 161 H 26 H 83/73 L 100 08/12/19 12:00 36.4 C L 158 H 19 99/80 L 93 08/12/19 11:42 160 H 25 H 90/48 L 97 Laboratory Results Short CBC 08/12/19 Range/Units 11:49 WBC 6.71 (4.8-10.8) K/uL Hgb 12.8 (12.0-16.0) g/dL Hct 45.5 (37-47) % Plt Count 208 (130-400) K/uL BMP 08/12/19 11:49 Sodium 141 Potassium 4.9 Chloride 95 L Carbon Dioxide 44 H* BUN 62 H Creatinine 1.12 Glucose 129 H Calcium 9.0 Cardiac Enzymes 08/12/19 Range/Units 11:49 Troponin I 0.022 (0-0.045) ng/ml Liver Function 08/12/19 Range/Units 11:49 Total Bilirubin 0.5 (0.2-1) mg/dl AST 56 H (15-37) U/L ALT 136 H (12-78) U/L Alkaline Phosphatase 120 H (45-117) U/L Albumin 3.9 (3.4-5.0) gm/dl Urine 08/12/19 Range/Units 14:00 Urine Color Yellow Urine Appearance Cloudy A (Clear) Urine pH 5.0 (4.5-7.5) Ur Specific [place] 1.024 (1.000-1.030) Urine Protein 1+ H (Negative) Urine Glucose (UA) Negative (Negative) Diagnostic Findings CXR: 1. Cardiomegaly with mild pulmonary vascular congestion. 2. Right pleural effusion. This is similar to 02/21/2019. 3. There is bibasilar consolidation. This could present atelectasis and/or pneumonia/aspiration pneumonitis. Clinical correlation will be required and radiographic follow-up to resolution is recommended. Medications Administered Miscellaneous Information (Consult) 1 ea N/A UD PRN PRN Reason: Consult Stop: 09/11/19 12:24 Last Admin: 08/12/19 12:31 Dose: 1 ea Documented by: [id number] Discontinued Medications Albuterol (Duoneb) 3 ml NEB NOW STA Stop: 08/12/19 12:01 Last Admin: 08/12/19 12:13 Dose: 3 ml Documented by: [id number] Diltiazem HCl (Cardizem) 15 mg IV NOW STA Stop: 08/12/19 13:57 Last Admin: 08/12/19 14:12 Dose: 15 mg Documented by: [id number] Cosigned by: [id number] Furosemide (Lasix) Confirm Administered Dose 40 mg IV .STK-MED ONE Stop: 08/12/19 13:56 Last Admin: 08/12/19 13:59 Dose: Not Given Documented by: [id number] Piperacillin Sod/Tazobactam Sod (Zosyn) 4.5 gm in 120 mls @ 240 mls/hr IV NOW ONE Stop: 08/12/19 12:54 Last Infusion: 08/12/19 13:12 Dose: 0 mls/hr Documented by: [id number] Admin: 08/12/19 12:36 Dose: 240 mls/hr Documented by: [id number] Sodium Chloride (Nss 1000ml) 1,000 mls @ 999 mls/hr IV .Q1H1M ONE Stop: 08/12/19 13:25 Last Infusion: 08/12/19 13:33 Dose: 0 mls/hr Documented by: [id number] Admin: 08/12/19 12:30 Dose: 999 mls/hr Documented by: [id number] ECG Rate (beats per minute): 148 Rhythm: atrial fibrillation Code Status & VTE Plan Code Status Full Code Discussed with patient at bedside Patient wishes to be revived. If respiratory status deteriorates she wishes to be intubated to determine if cause of illness reversible VTE Prophylaxis Plan VTE Prophylaxis will be ordered: Yes Supervising Physician Co-Signing Physician Notes I, Dr. Delta Greenwood, have seen and examined the patient with physician clinical nursing assistant and would like to comment that This is an 89 year old female in acute respiratory failure General: speaking with BIPAP mask, able to complete full sentences, cooperative on exam Eyes: extraoccular movements intact Lungs: on BIPAP, crackles and diminished lungs sounds, no wheezing Heart: tachycardia Abdomen: soft, nontender, positive bowels Extremities: bilateral lower extremity edema Acute on chronic respiratory failure with hypoxia and hypercapnia Acute COPD exacerbation congestive heart failure -continue BIPAP, consulted with ICU physician that given hypercarbia that patient may require intubation if her respiratory status does not improve with BIPAP - ICU management for respiratory status -duonebs prn -official echocardiogram pending -will likely need diuresis once better blood pressures Metabolic encephalopathy Mental Status Code Status -Hypercapnia can contribute to changes in mental status -however, on my exam in the ED, patient appeared to be able to make medical decisions -Code Status: Patient reports she has living will. However, Full Code status as per my discussion with patient in the ED Atrial Fibrillation with rapid ventricular response Cardiomegaly with mild pulmonary vascular congestion -anticoagulation with heparin drip -received IV push of diltiazem in the ED, start diltiazem drip, home dose beta blockers -ICU physician asks to hold off diuretic for now while monitoring and maintaining the blood pressure -consult cardiology service Agree with assessment and plan of other health issues as documented by physician clinical nursing assistant My colleague Dr. Forbes will be following the patient as hospitalist physician starting on 08/13/19 (1) Hypotension Hypotension type: unspecified hypotension type Qualified Code(s): I95.9 - Hypotension, unspecified
[2019-08-12 14:30] LABS: Appearance Urine Cloudy (Clear); Bacteria Urine Automated Negative (Negative); Bilirubin Urine Negative (Negative); Blood Urine Negative (Negative); Color Urine Yellow; Epithelial Cell Urine Auto >30 /lpf (0-5); Glucose Urine UA Negative (Negative); Ketones Urine Negative (Negative); Leukocyte Esterase Urine Negative (Negative); Nitrite Urine Negative (Negative); Protein Urine 1+ (Negative); RBC Urine Automated 0-4 /hpf (0-4); Specific Gravity Urine 1.024 (1.000-1.030); Urobilinogen Urine Negative (Negative)
[2019-08-12 14:47] LABS: Mucus Urine Present (None Prsent)
[2019-08-12] MEDS ORDERED: ALBUT/IPRATROP 3MG/0.5MG NEB 3 ML VIAL NEB SCH (15:00)
[2019-08-12] MEDS ORDERED: LORazepam 1 MG TAB PO PRN (15:28)
[2019-08-12] MEDS ORDERED: INFLUENZA ADMINISTRATION CHARGE ONE (16:00)
[2019-08-12] MEDS ORDERED: INFLUENZA VACCINE HIGH DOSE 65+ 0.5 ML SYR IM ONE (16:00)
[2019-08-12 16:07] LABS: iSTAT Allen Test Pass; iSTAT Art Bld Gas pCO2 Correct 89 mmHg (35-46); iSTAT Art Bld Gas pH Corrected 7.287 (7.35-7.45); iSTAT Arterial Blood Gas HCO3 43 meg/L (19-24); iSTAT Arterial Blood Gas pCO2 93 mmHg (35-46); iSTAT Arterial Blood Gas pH 7.27 (7.35-7.45); iSTAT Arterial Blood Gas pO2 104 mmHg (80-95); iSTAT Arterial Blood Gas pO2 C 99; iSTAT Carbon Dioxide > 40 mEq/l (24-31); iSTAT FiO2 50 %; iSTAT Site L Radial
[2019-08-12] MEDS: dilTIAZem HCl 125 MG in DEXTROSE 5% 100 ML IV SCH (16:21)
--- NOTE | 2019-08-12 16:30 | Cardiology Consultation ---
Date of Consultation August 12, 2019 Assessment & Plan (1) Acute on chronic respiratory failure with hypoxia and hypercapnia: (2) Respiratory acidosis: (3) Atrial fibrillation with RVR: (4) Acute diastolic heart failure: (5) Acute right-sided heart failure: Agree with initiation of IV diltiazem infusion given active wheeze on exam and persistent atrial fibrillation with rapid ventricular response. Continue low-dose oral beta-ruben as BP allows. If respiratory status improved, rec ommend titration of metoprolol as tolerated. Consider addition of digoxin IV pending HR and blood pressure response to IV diltiazem. Anticoagulation is indicated at this time. Continue IV heparin per protocol. Initiate IV diuretic therapy with evidence of primarily right-sided volume overload on exam. Preliminary review of resting 2D transthoracic echocardiogram demonstrates low normal left ventricular systolic function with moderate right ventricular dilatation, mild right ventricular systolic dysfunction, and indirect evidence of mild to moderate pulmonary hypertension (estimated systolic pulmonary arterial pressure of 50 mmHg). Management of bipap per critical care. History of Present Illness Reason for Consultation: Atrial fibrillation with rapid ventricular response, decompensated heart failure Requesting Physician: Dr. Greenwood Attending Physician: Delta Greenwood MD History of Present Illness 89-year-old female admitted with worsening drowsiness. Significant hypercapnia and respiratory acidosis noted on admission. X-ray reveals pulmonary vascular congestion. Patient treated with dose of IV diltiazem with improvement of heart rates. Initially 150 bpm currently reduced now to 125 bpm. Patient awake on BiPAP in the intensive care unit. Carries a history of chronic hypoxic and hypercapnic respiratory failure on chronic oxygen supplementation. No history of prior episodes of atrial fibrillation. Patient unable to offer much history at this time due to BiPAP. Per chart review, patient reported worsening edema over 2 to 3-week period. No reports of chest discomfort or paroxysmal nocturnal dyspnea. Patient currently denies any chest pain at rest. Blood pressure improved mildly. She has not received any diuretic therapy since admission. Creatinine elevated above baseline. pH and CO2 levels improving with BiPAP therapy. Allergies Allergy/AdvReac Type Severity Reaction Status Date / Time No Known Allergies Allergy Unknown Verified 08/12/19 14:53 Home Medications Home Medications Medication Instructions Recorded Confirmed Type PreserVision AREDS-2 1 tab PO QAM 12/28/18 08/12/19 History acetaminophen [Tylenol Extra 500 mg PO Q6H PRN 12/28/18 08/12/19 History Strength] albuterol sulfate 2 puff INHALATION Q4H PRN 12/28/18 08/12/19 History aspirin 81 mg PO QAM 12/28/18 08/12/19 History cetirizine [Zyrtec] 10 mg PO QAM 12/28/18 08/12/19 History hydrochlorothiazide 12.5 mg PO QAM 12/28/18 08/12/19 History losartan 25 mg PO QAM 12/28/18 08/12/19 History potassium chloride 10 meq PO QAM 12/28/18 08/12/19 History ipratropium-albuterol 3 ml INH Q8H PRN #90 ml 02/24/19 08/12/19 Rx furosemide 10 mg PO DAILY 08/12/19 08/12/19 History metoprolol succinate 25 mg PO DAILY 08/12/19 08/12/19 History metronidazole 1 applic TOPICAL DAILY 08/12/19 08/12/19 History tiotropium bromide [Spiriva 2 inh INHALATION DAILY 08/12/19 08/12/19 History Respimat] Patient History Medical History Chronic respiratory failure with hypoxia, on home O2 therapy (Chronic) Macular degeneration (Chronic) COPD, moderate (Chronic) History of breast cancer (Resolved) s/p partial mastectomy 1998 HTN (hypertension) (Chronic) Dyslipidemia (Chronic) Influenza A (Resolved) Surgical History History of bilateral knee arthroplasty (Resolved) H/O partial mastectomy (Resolved) "right SLN BX , Dr. 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 Beliefs That Will Affect Care: None marital status: Current Living Situation: Alone current occupational status: retired Other Information That Helps Us Care for You: No Feels Safe at Home: Yes Safety Concerns: Feels Safe At This Time Smoking Status: Former smoker packs per day: 1 ; Years Smoked: 10 ; Do You Dip or Chew Tobacco: No ; Number of Years Since Quit: 50 ; Second Hand Exposure: No ; Tobacco Cessation Education Requested by Patient: No Hx Alcohol Use: Yes Alcohol type: hard liquor Alcohol Intake Frequency Comment: 4oz daily Hx Substance Use: No Childhood Exposure to Second-Hand Smoke: No Review of Systems Review of Systems: All systems reviewed & are unremarkable except as noted in HPI & below Physical Exam Physical Exam: General: NAD, awake and alert on BiPAP. Overweight. Well nourished. HEENT: Normocephalic. Atraumatic. Conjunctiva pink, no scleral icterus. Neck: No carotid bruits, the carotid upstrokes are brisk. No JVD. No HJR Heart: Irregular, tachycardic. Normal S1 and S2. No murmur appreciated. PMI is not displaced. No RV heave. Lungs: + Expiratory wheeze bilateral, scattered rhonchi. Abdomen: Normal bowel sounds. Soft. Nontender. No masses or organomegaly. No abdominal bruits. Extremities: 2+ bilateral pitting pretibial edema. Pulses: radial=2/4, Dorsalis pedis =2/4, posterior tibial=2/4. Neuro: Patient moves all extremities. No facial asymmetry. Results & Data Vital Signs (Past 12 Hours) Vital Signs Temp Pulse Pulse Resp BP Pulse Ox 08/12/19 15:19 128 H 20 94 08/12/19 15:18 128 H 20 94 08/12/19 15:09 36.1 C L 125 H 22 116/70 95 08/12/19 15:00 125 H 30 H 86 L 08/12/19 14:15 159 H 28 H 08/12/19 14:11 161 H 29 H 107/84 97 08/12/19 14:00 160 H 22 08/12/19 13:47 153 H 22 96/66 L 08/12/19 13:45 158 H 16 93 08/12/19 13:33 140 H 22 104/64 08/12/19 13:31 157 H 26 H 08/12/19 13:30 157 H 23 95 08/12/19 13:17 141 H 18 110/73 97 08/12/19 13:15 147 H 17 95 08/12/19 13:07 153 H 22 92 10/01/19 13:00 153 H 25 H 120/61 99 08/12/19 12:45 139 H 53 H 95/69 L 94 08/12/19 12:39 152 H 30 H 80/65 L 98 08/12/19 12:30 173 H 33 H 99 08/12/19 12:22 95 08/12/19 12:19 92 08/12/19 12:15 150 H 39 H 98 08/12/19 12:08 161 H 26 H 83/73 L 100 08/12/19 12:00 36.4 C L 158 H 19 99/80 L 93 08/12/19 11:42 160 H 25 H 90/48 L 97 Laboratory Results Laboratory Results - last 24 hr 08/12/19 08/12/19 08/12/19 11:49 11:49 11:49 WBC 6.71 RBC 4.15 L Hgb 12.8 POC Hgb Hct 45.5 POC Hct MCV 109.6 H MCH 30.8 MCHC 28.1 L RDW Std Deviation 57.8 H RDW Coeff of Tam 14.4 Plt Count 208 MPV 10.1 Immature Gran % (Auto) 0.1 Neut % (Auto) 83.3 Lymph % (Auto) 4.8 Citrus % (Auto) 11.8 Eos % (Auto) 0.0 Baso % (Auto) 0.0 Immature Gran # (Auto) 0.01 Neut # (Auto) 5.59 Lymph # (Auto) 0.32 L Citrus # (Auto) 0.79 H Eos # (Auto) 0.00 Baso # (Auto) 0.00 Hypochromasia Present Basophilic Stippling 1+ Stomatocytes 1+ ESR PT 10.9 INR 1.1 APTT 24.2 PTT Ratio 0.9 Sample Site POC pH POC pCO2 POC pO2 POC HCO3 POC Base Excess ABG pH (Temp Correct) ABG pCO2 (Temp Corrct POC ABG pO2 at Pt Temp POC ABG O2 Sat Kyree Test VBG pH VBG pCO2 VBG pO2 VBG HCO3 VBG O2 Saturation VBG Base Excess Barometric Pressure O2 Delivery Device POC FiO2 IPAP POC Sodium Sodium 141 POC Potassium Potassium 4.9 POC Chloride Chloride 95 L Carbon Dioxide 44 H* POC Total CO2 Anion Gap 3.0 POC Anion Gap POC BUN BUN 62 H Creatinine 1.12 POC Creatinine Est Cr Clr Drug Dosing 36.5 Est GFR ( Amer) 51.2 Est GFR (Non-Af Amer) 44.1 BUN/Creatinine Ratio 55.2 H Glucose 129 H POC Glucose (other) Lactate Calcium 9.0 POC Ioniz Calcium Angelica Magnesium 2.5 H Total Bilirubin 0.5 AST 56 H ALT 136 H Alkaline Phosphatase 120 H Troponin I 0.022 C-Reactive Protein < 0.29 NT-Pro-B Natriuret Pep 4246 H Total Protein 6.8 Albumin 3.9 Globulin 2.9 Albumin/Globulin Ratio 1.3 Procalcitonin Random Cortisol Urine Color Urine Appearance Urine pH Ur Specific [place] Urine Protein Urine Glucose (UA) Urine Ketones Urine Blood Urine Nitrite Urine Bilirubin Urine Urobilinogen Ur Leukocyte Esterase Urine WBC (Auto) Urine RBC (Auto) U Hyaline Cast (Auto) U Epithel Cells (Auto) Urine Bacteria (Auto) Ur Renal Epithelial Cell Urine Mucus Nasal Screen MRSA (PCR) 08/12/19 08/12/19 08/12/19 11:49 11:49 11:59 WBC RBC Hgb POC Hgb Hct POC Hct MCV MCH MCHC RDW Std Deviation RDW Coeff of Tam Plt Count MPV Immature Gran % (Auto) Neut % (Auto) Lymph % (Auto) Citrus % (Auto) Eos % (Auto) Baso % (Auto) Immature Gran # (Auto) Neut # (Auto) Lymph # (Auto) Citrus # (Auto) Eos # (Auto) Baso # (Auto) Hypochromasia Basophilic Stippling Stomatocytes ESR 12 PT INR APTT PTT Ratio Sample Site POC pH POC pCO2 POC pO2 POC HCO3 POC Base Excess ABG pH (Temp Correct) ABG pCO2 (Temp Corrct POC ABG pO2 at Pt Temp POC ABG O2 Sat Kyree Test VBG pH VBG pCO2 VBG pO2 VBG HCO3 VBG O2 Saturation VBG Base Excess Barometric Pressure O2 Delivery Device POC FiO2 IPAP POC Sodium Sodium POC Potassium Potassium POC Chloride Chloride Carbon Dioxide POC Total CO2 Anion Gap POC Anion Gap POC BUN BUN Creatinine POC Creatinine Est Cr Clr Drug Dosing Est GFR ( Amer) Est GFR (Non-Af Amer) BUN/Creatinine Ratio Glucose POC Glucose (other) Lactate Calcium POC Ioniz Calcium Angelica Magnesium Total Bilirubin AST ALT Alkaline Phosphatase Troponin I C-Reactive Protein NT-Pro-B Natriuret Pep Total Protein Albumin Globulin Albumin/Globulin Ratio Procalcitonin 0.05 Random Cortisol 36.71 Urine Color Urine Appearance Urine pH Ur Specific [place] Urine Protein Urine Glucose (UA) Urine Ketones Urine Blood Urine Nitrite Urine Bilirubin Urine Urobilinogen Ur Leukocyte Esterase Urine WBC (Auto) Urine RBC (Auto) U Hyaline Cast (Auto) U Epithel Cells (Auto) Urine Bacteria (Auto) Ur Renal Epithelial Cell Urine Mucus Nasal Screen MRSA (PCR) 08/12/19 08/12/19 08/12/19 12:18 12:26 12:26 WBC RBC Hgb POC Hgb 15.0 Hct POC Hct 44 MCV MCH MCHC RDW Std Deviation RDW Coeff of Tam Plt Count MPV Immature Gran % (Auto) Neut % (Auto) Lymph % (Auto) Citrus % (Auto) Eos % (Auto) Baso % (Auto) Immature Gran # (Auto) Neut # (Auto) Lymph # (Auto) [place]rus # (Auto) Eos # (Auto) Baso # (Auto) Hypochromasia Basophilic Stippling Stomatocytes ESR PT INR APTT PTT Ratio Sample Site POC pH POC pCO2 POC pO2 POC HCO3 POC Base Excess ABG pH (Temp Correct) ABG pCO2 (Temp Corrct POC ABG pO2 at Pt Temp POC ABG O2 Sat Kyree Test VBG pH 7.15 L VBG pCO2 132 H VBG pO2 52 VBG HCO3 44 VBG O2 Saturation 80.6 VBG Base Excess 10.1 Barometric Pressure 733.2 O2 Delivery Device POC FiO2 IPAP POC Sodium 140 Sodium POC Potassium 5.1 H Potassium POC Chloride 89 L Chloride Carbon Dioxide POC Total CO2 > 40 H* Anion Gap POC Anion Gap 11.0 L POC BUN 69 H BUN Creatinine POC Creatinine 1.3 Est Cr Clr Drug Dosing Est GFR ( Amer) Est GFR (Non-Af Amer) BUN/Creatinine Ratio Glucose POC Glucose (other) 127 H Lactate 1.3 Calcium POC Ioniz Calcium Angelica 1.11 L Magnesium Total Bilirubin AST ALT Alkaline Phosphatase Troponin I C-Reactive Protein NT-Pro-B Natriuret Pep Total Protein Albumin Globulin Albumin/Globulin Ratio Procalcitonin Random Cortisol Urine Color Urine Appearance Urine pH Ur Specific [place] Urine Protein Urine Glucose (UA) Urine Ketones Urine Blood Urine Nitrite Urine Bilirubin Urine Urobilinogen Ur Leukocyte Esterase Urine WBC (Auto) Urine RBC (Auto) U Hyaline Cast (Auto) U Epithel Cells (Auto) Urine Bacteria (Auto) Ur Renal Epithelial Cell Urine Mucus Nasal Screen MRSA (PCR) 08/12/19 08/12/19 08/12/19 14:00 15:30 15:54 WBC RBC Hgb POC Hgb Hct POC Hct MCV MCH MCHC RDW Std Deviation RDW Coeff of Tam Plt Count MPV Immature Gran % (Auto) Neut % (Auto) Lymph % (Auto) Citrus % (Auto) Eos % (Auto) Baso % (Auto) Immature Gran # (Auto) Neut # (Auto) Lymph # (Auto) [place] # (Auto) Eos # (Auto) Baso # (Auto) Hypochromasia Basophilic Stippling Stomatocytes ESR PT INR APTT PTT Ratio Sample Site L Radial POC pH 7.27 L POC pCO2 93 H POC pO2 104 H POC HCO3 43 H POC Base Excess 16.0 H ABG pH (Temp Correct) 7.287 L ABG pCO2 (Temp Corrct 89 H POC ABG pO2 at Pt Temp 99 POC ABG O2 Sat 97.0 H Kyree Test Pass VBG pH VBG pCO2 VBG pO2 VBG HCO3 VBG O2 Saturation VBG Base Excess Barometric Pressure O2 Delivery Device BIPAP POC FiO2 50 IPAP 16 POC Sodium Sodium POC Potassium Potassium POC Chloride Chloride Carbon Dioxide POC Total CO2 > 40 H* Anion Gap POC Anion Gap POC BUN BUN Creatinine POC Creatinine Est Cr Clr Drug Dosing Est GFR ( Amer) Est GFR (Non-Af Amer) BUN/Creatinine Ratio Glucose POC Glucose (other) Lactate Calcium POC Ioniz Calcium Angelica Magnesium Total Bilirubin AST ALT Alkaline Phosphatase Troponin I C-Reactive Protein NT-Pro-B Natriuret Pep Total Protein Albumin Globulin Albumin/Globulin Ratio Procalcitonin Random Cortisol Urine Color Yellow Urine Appearance Cloudy A Urine pH 5.0 Ur Specific [place] 1.024 Urine Protein 1+ H Urine Glucose (UA) Negative Urine Ketones Negative Urine Blood Negative Urine Nitrite Negative Urine Bilirubin Negative Urine Urobilinogen Negative Ur Leukocyte Esterase Negative Urine WBC (Auto) 1-5 Urine RBC (Auto) 0-4 U Hyaline Cast (Auto) 5-10 H U Epithel Cells (Auto) >30 H Urine Bacteria (Auto) Negative Ur Renal Epithelial Cell Not Reportable Urine Mucus Present A Nasal Screen MRSA (PCR) Pending
[2019-08-12] MEDS ORDERED: PERFLUTREN LIPID MICROSPHERE (DEFINITY) IV ONE (16:34)
[2019-08-12] MEDS: PIPERACILLIN/TAZOBACTAM 3.375 GM in DEXTROSE 5% 100 ML IV SCH (17:07)
[2019-08-12] MEDS ORDERED: FUROSEMIDE 20 MG in SYRINGE 0 ML IV SCH (17:15)
[2019-08-12] MEDS: HEPARIN SODIUM/DEXTROSE 25,000 UNITS/500 ML BAG IV SCH (17:23)
[2019-08-12 18:10] LABS: Albumin Globulin Ratio 1.3 (0.9-2); Albumin Level 3.4 gm/dl (3.4-5.0); BUN Creatinine Ratio 62.3 (10-20); Bilirubin,Total 0.6 mg/dl (0.2-1); Calcium 8.7 mg/dl (8.5-10.1); Creatinine Clr Calc Pharmacy 43.5 ml/min; Est GFR (African American) 63.2; Est GFR (Non-African American) 54.5; Globulin 2.6 gm/dl (2.5-4.0); Magnesium 2.5 mg/dl (1.8-2.4); Phosphorus 5.8 mg/dl (2.5-4.9); Potassium 4.9 mmol/L (3.5-5.1)
[2019-08-12] MEDS: ALBUT/IPRATROP 3MG/0.5MG NEB 3 ML VIAL NEB SCH (20:03)
[2019-08-12] MEDS ORDERED: METOPROLOL TARTRATE 25 MG TAB PO SCH (21:00)
[2019-08-12] MEDS ORDERED: FUROSEMIDE 40 MG in SYRINGE 0 ML IV SCH (21:00)
[2019-08-12] MEDS ORDERED: HEPARIN SOD 5,000 UNIT/0.5 ML VIAL SQ SCH (21:00)
[2019-08-12 23:46] LABS: Base Excess VBG 16.4 mEq/L; Oxygen Saturation VBG 83.6 %; pH VBG 7.35 (7.36-7.41)
[2019-08-12 23:59] LABS: Partial Thromboplastin Ratio 2.4
[2019-08-13 00:14] LABS: Partial Thromboplastin Time 65.8 Seconds (21.0-31.0)
[2019-08-13] MEDS: ALBUT/IPRATROP 3MG/0.5MG NEB 3 ML VIAL NEB SCH ×5 (01:21→22:26)
[2019-08-13] MEDS: PIPERACILLIN/TAZOBACTAM 3.375 GM in DEXTROSE 5% 100 ML IV SCH ×2 (02:29→09:18)
[2019-08-13] MEDS: dilTIAZem HCl 125 MG in DEXTROSE 5% 100 ML IV SCH ×3 (03:45→17:42)
[2019-08-13 04:42] LABS: Base Excess ABG 17.7 mEq/L (-9-1.8); HCO3 ABG 45 mmol/L (19-24); Oxygen Saturation ABG 94.7 % (90-95); PCO2 ABG 72 mmHg (35-46); PO2 ABG 93 mm/Hg (80-95); pH ABG 7.41 (7.35-7.45)
[2019-08-13 04:45] LABS: Allen Test Pos (Pos)
[2019-08-13 05:26] LABS: Partial Thromboplastin Time 82.3 Seconds (21.0-31.0)
[2019-08-13 05:33] LABS: Basophils # (auto) 0.02 K/uL (0-0.2); Basophils % (auto) 0.3 %; Eosinophils # (auto) 0.03 K/uL (0-0.5); Eosinophils % (auto) 0.5 %; Hematocrit (blood only) 38.9 % (37-47); Hemoglobin 11.2 g/dL (12.0-16.0); Immature Granulocytes # (auto) 0.01 K/uL (0.00-0.02); Immature Granulocytes % (auto) 0.2 %; Lymphocytes % (auto) 11.4 %; Mean Corpuscular Hemoglobin 30.1 pg (25-34); Mean Corpuscular Hgb Conc 28.8 g/dL (32-36); Mean Corpuscular Volume 104.6 fL (80-100); Mean Platelet Volume 10.2 fL (7.4-10.4); Monocytes # (auto) 0.82 K/uL (0.11-0.59); Monocytes % (auto) 13.3 %; Neutrophils # (auto) 4.58 K/uL (1.4-6.5); Neutrophils % (auto) 74.3 %; Platelet Count 189 K/uL (130-400); RDW Coefficient of Variation 14.6 % (11.5-14.5); RDW Standard Deviation 56.2 fL (36.4-46.3); Red Blood Count 3.72 M/uL (4.2-5.4); White Blood Count 6.16 K/uL (4.8-10.8)
[2019-08-13 05:39] LABS: Albumin Globulin Ratio 1.2 (0.9-2); BUN Creatinine Ratio 69.3 (10-20); Bilirubin,Total 0.8 mg/dl (0.2-1); Calcium 8.3 mg/dl (8.5-10.1); Est GFR (African American) 90.3; Est GFR (Non-African American) 77.9; Globulin 2.5 gm/dl (2.5-4.0); Magnesium 2.1 mg/dl (1.8-2.4); Total Protein 5.5 gm/dl (6.4-8.2)
[2019-08-13 06:51] LABS: Potassium 4.1 mmol/L (3.5-5.1)
--- NOTE | 2019-08-13 07:23 | XRay Report ---
XR chest 1V portable CLINICAL HISTORY: follow up COMPARISON STUDY: 08/12/2019 FINDINGS: The cardiac and mediastinal contours remain stable. There is elevation of the right hemidia phragmatic contour. There are bilateral pleural effusions. There is mild pulmonary vascular congestio n. The right pleural effusion appears slightly smaller. There is improving aeration of the left lung base.[ IMPRESSION: 1. Persistent mild pulmonary vascular congestion 2. Elevation right hemidiaphragm. Decreasing right pleural effusion. 3. Improving aeration of the left lung base. Electronically signed by: Nicholas Parker M.D. 08/13/2019 7:22 AM
[2019-08-13 07:58] LABS: Estimated Average Glucose 111 mg/dl; Hemoglobin A1C 5.5 % (4.5-5.6)
[2019-08-13] MEDS ORDERED: METOPROLOL TARTRATE 25 MG TAB PO SCH (09:00)
[2019-08-13] MEDS: FUROSEMIDE 40 MG in SYRINGE 0 ML IV SCH ×2 (09:17→17:43)
--- NOTE | 2019-08-13 10:29 | Cardiology Progress Note ---
Date of Service August 13, 2019 Assessment & Plan (1) Acute on chronic respiratory failure with hypoxia and hypercapnia: (2) Respiratory acidosis: (3) Atrial fibrillation with RVR: (4) Acute diastolic heart failure: (5) Acute right-sided heart failure: Oral metoprolol titrated 25 mg twice daily to improve rate control. Weaned intravenous diltiazem infusion as tolerated. Consider addition of oral diltiazem in the next 24 hours if unable to discontinue IV infusion. Continue intravenous heparin infusion. Indication for oral anticoagulation discussed with patient at length. She is a candidate for DOAC with normal renal function. Will transition to Eliquis prior to discharge. Patient is not a good candidate for transesophageal echo guided cardioversion. Continue medical management recommended. Follow fluid balance, daily weight, GFR, electrolytes. Titrate Lasix to 40 mg twice daily pending clinical response. Recommend maintaining negative fluid balance at this time given marked edema and signs/symptoms of right- sided/diastolic heart failure. Wean oxygen per protocol. Baseline supplemental oxygen 2 L at home. Utilize BiPAP at night for acute on chronic CO2 retention and chronic hypoxia. Subjective Patient seen and examined at the bedside. Heart rate improved however, remains atrial fibrillation with rapid ventricular response. More alert today. No longer wearing BiPAP. Oxygen saturation remained in the mid to high 80s which is apparently patient's baseline. Fluid balance negative approximately 400 cc. Patient denies orthopnea or PND. No chest discomfort or palpitations. Denies lightheadedness, dizziness, syncope, or near syncope. States lower extremity edema worsening over the past few weeks. Admits to problems with oxygen supplementation over the weekend. Apparently the patient went without her oxygen for nearly 3 days prior to her decompensation. Review of Systems Review of Systems: All systems reviewed & are unremarkable except as noted in HPI & below Physical Exam Physical Exam: General: NAD, awake and alert . Overweight. Well nourished. HEENT: Normocephalic. Atraumatic. Conjunctiva pink, no scleral icterus. Neck: No carotid bruits, the carotid upstrokes are brisk. No JVD. No HJR Heart: Irregular, tachycardic. Normal S1 and S2. No murmur appreciated. PMI is not displaced. No RV heave. Lungs: + Expiratory wheeze bilateral, scattered rhonchi. Abdomen: Normal bowel sounds. Soft. Nontender. No masses or organomegaly. No abdominal bruits. Extremities: 2+ bilateral pitting pretibial edema. Pulses: radial=2/4, Dorsalis pedis =2/4, posterior tibial=2/4. Neuro: Patient moves all extremities. No facial asymmetry. Results & Data Vital Signs (Past 12 Hours) Vital Signs Pulse Pulse Resp Pulse Ox 08/13/19 07:41 94 H 24 97 08/13/19 07:16 94 H 24 97 08/13/19 05:31 113 H 18 93 08/13/19 01:24 90 16 97 08/12/19 23:59 88 Laboratory Results Laboratory Results - last 24 hr 08/12/19 08/12/19 08/12/19 11:49 11:49 11:49 WBC 6.71 RBC 4.15 L Hgb 12.8 POC Hgb Hct 45.5 POC Hct MCV 109.6 H MCH 30.8 MCHC 28.1 L RDW Std Deviation 57.8 H RDW Coeff of Tam 14.4 Plt Count 208 MPV 10.1 Immature Gran % (Auto) 0.1 Neut % (Auto) 83.3 Lymph % (Auto) 4.8 [place] % (Auto) 11.8 Eos % (Auto) 0.0 Baso % (Auto) 0.0 Immature Gran # (Auto) 0.01 Neut # (Auto) 5.59 Lymph # (Auto) 0.32 L [place] # (Auto) 0.79 H Eos # (Auto) 0.00 Baso # (Auto) 0.00 Hypochromasia Present Basophilic Stippling 1+ Stomatocytes 1+ ESR PT 10.9 INR 1.1 APTT 24.2 PTT Ratio 0.9 Sample Site POC pH POC pCO2 POC pO2 POC HCO3 POC Base Excess ABG pH ABG pH (Temp Correct) ABG pCO2 ABG pCO2 (Temp Corrct ABG pO2 POC ABG pO2 at Pt Temp ABG HCO3 POC ABG O2 Sat ABG O2 Saturation ABG Base Excess Kyree Test VBG pH VBG pCO2 VBG pO2 VBG HCO3 VBG O2 Saturation VBG Base Excess Barometric Pressure Oxygen Given O2 Delivery Device POC FiO2 IPAP POC Sodium Sodium 141 POC Potassium Potassium 4.9 POC Chloride Chloride 95 L Carbon Dioxide 44 H* POC Total CO2 Anion Gap 3.0 POC Anion Gap POC BUN BUN 62 H Creatinine 1.12 POC Creatinine Est Cr Clr Drug Dosing 36.5 Est GFR ( Amer) 51.2 Est GFR (Non-Af Amer) 44.1 BUN/Creatinine Ratio 55.2 H Glucose 129 H POC Glucose POC Glucose (other) Estimat Average Glucose Hemoglobin A1c Lactate Calcium 9.0 POC Ioniz Calcium Angelica Phosphorus Magnesium 2.5 H Total Bilirubin 0.5 AST 56 H ALT 136 H Alkaline Phosphatase 120 H Troponin I 0.022 C-Reactive Protein < 0.29 NT-Pro-B Natriuret Pep 4246 H Total Protein 6.8 Albumin 3.9 Globulin 2.9 Albumin/Globulin Ratio 1.3 Procalcitonin Random Cortisol Specimen Hemolysis Urine Color Urine Appearance Urine pH Ur Specific [place] Urine Protein Urine Glucose (UA) Urine Ketones Urine Blood Urine Nitrite Urine Bilirubin Urine Urobilinogen Ur Leukocyte Esterase Urine WBC (Auto) Urine RBC (Auto) U Hyaline Cast (Auto) U Epithel Cells (Auto) Urine Bacteria (Auto) Ur Renal Epithelial Cell Urine Mucus Nasal Screen MRSA (PCR) 08/12/19 08/12/19 08/12/19 11:49 11:49 11:59 WBC RBC Hgb POC Hgb Hct POC Hct MCV MCH MCHC RDW Std Deviation RDW Coeff of Tam Plt Count MPV Immature Gran % (Auto) Neut % (Auto) Lymph % (Auto) [place] % (Auto) Eos % (Auto) Baso % (Auto) Immature Gran # (Auto) Neut # (Auto) Lymph # (Auto) [place] # (Auto) Eos # (Auto) Baso # (Auto) Hypochromasia Basophilic Stippling Stomatocytes ESR 12 PT INR APTT PTT Ratio Sample Site POC pH POC pCO2 POC pO2 POC HCO3 POC Base Excess ABG pH ABG pH (Temp Correct) ABG pCO2 ABG pCO2 (Temp Corrct ABG pO2 POC ABG pO2 at Pt Temp ABG HCO3 POC ABG O2 Sat ABG O2 Saturation ABG Base Excess Kyree Test VBG pH VBG pCO2 VBG pO2 VBG HCO3 VBG O2 Saturation VBG Base Excess Barometric Pressure Oxygen Given O2 Delivery Device POC FiO2 IPAP POC Sodium Sodium POC Potassium Potassium POC Chloride Chloride Carbon Dioxide POC Total CO2 Anion Gap POC Anion Gap POC BUN BUN Creatinine POC Creatinine Est Cr Clr Drug Dosing Est GFR ( Amer) Est GFR (Non-Af Amer) BUN/Creatinine Ratio Glucose POC Glucose POC Glucose (other) Estimat Average Glucose Hemoglobin A1c Lactate Calcium POC Ioniz Calcium Angelica Phosphorus Magnesium Total Bilirubin AST ALT Alkaline Phosphatase Troponin I C-Reactive Protein NT-Pro-B Natriuret Pep Total Protein Albumin Globulin Albumin/Globulin Ratio Procalcitonin 0.05 Random Cortisol 36.71 Specimen Hemolysis Urine Color Urine Appearance Urine pH Ur Specific [place] Urine Protein Urine Glucose (UA) Urine Ketones Urine Blood Urine Nitrite Urine Bilirubin Urine Urobilinogen Ur Leukocyte Esterase Urine WBC (Auto) Urine RBC (Auto) U Hyaline Cast (Auto) U Epithel Cells (Auto) Urine Bacteria (Auto) Ur Renal Epithelial Cell Urine Mucus Nasal Screen MRSA (PCR) 08/12/19 08/12/19 08/12/19 12:18 12:26 12:26 WBC RBC Hgb POC Hgb 15.0 Hct POC Hct 44 MCV MCH MCHC RDW Std Deviation RDW Coeff of Tam Plt Count MPV Immature Gran % (Auto) Neut % (Auto) Lymph % (Auto) [place] % (Auto) Eos % (Auto) Baso % (Auto) Immature Gran # (Auto) Neut # (Auto) Lymph # (Auto) [place] # (Auto) Eos # (Auto) Baso # (Auto) Hypochromasia Basophilic Stippling Stomatocytes ESR PT INR APTT PTT Ratio Sample Site POC pH POC pCO2 POC pO2 POC HCO3 POC Base Excess ABG pH ABG pH (Temp Correct) ABG pCO2 ABG pCO2 (Temp Corrct ABG pO2 POC ABG pO2 at Pt Temp ABG HCO3 POC ABG O2 Sat ABG O2 Saturation ABG Base Excess Kyree Test VBG pH 7.15 L VBG pCO2 132 H VBG pO2 52 VBG HCO3 44 VBG O2 Saturation 80.6 VBG Base Excess 10.1 Barometric Pressure 733.2 Oxygen Given O2 Delivery Device POC FiO2 IPAP POC Sodium 140 Sodium POC Potassium 5.1 H Potassium POC Chloride 89 L Chloride Carbon Dioxide POC Total CO2 > 40 H* Anion Gap POC Anion Gap 11.0 L POC BUN 69 H BUN Creatinine POC Creatinine 1.3 Est Cr Clr Drug Dosing Est GFR ( Amer) Est GFR (Non-Af Amer) BUN/Creatinine Ratio Glucose POC Glucose POC Glucose (other) 127 H Estimat Average Glucose Hemoglobin A1c Lactate 1.3 Calcium POC Ioniz Calcium Angelica 1.11 L Phosphorus Magnesium Total Bilirubin AST ALT Alkaline Phosphatase Troponin I C-Reactive Protein NT-Pro-B Natriuret Pep Total Protein Albumin Globulin Albumin/Globulin Ratio Procalcitonin Random Cortisol Specimen Hemolysis Urine Color Urine Appearance Urine pH Ur Specific [place] Urine Protein Urine Glucose (UA) Urine Ketones Urine Blood Urine Nitrite Urine Bilirubin Urine Urobilinogen Ur Leukocyte Esterase Urine WBC (Auto) Urine RBC (Auto) U Hyaline Cast (Auto) U Epithel Cells (Auto) Urine Bacteria (Auto) Ur Renal Epithelial Cell Urine Mucus Nasal Screen MRSA (PCR) 08/12/19 08/12/19 08/12/19 14:00 15:30 15:52 WBC RBC Hgb POC Hgb Hct POC Hct MCV MCH MCHC RDW Std Deviation RDW Coeff of Tam Plt Count MPV Immature Gran % (Auto) Neut % (Auto) Lymph % (Auto) [place] % (Auto) Eos % (Auto) Baso % (Auto) Immature Gran # (Auto) Neut # (Auto) Lymph # (Auto) [place] # (Auto) Eos # (Auto) Baso # (Auto) Hypochromasia Basophilic Stippling Stomatocytes ESR PT INR APTT PTT Ratio Sample Site POC pH POC pCO2 POC pO2 POC HCO3 POC Base Excess ABG pH ABG pH (Temp Correct) ABG pCO2 ABG pCO2 (Temp Corrct ABG pO2 POC ABG pO2 at Pt Temp ABG HCO3 POC ABG O2 Sat ABG O2 Saturation ABG Base Excess Kyree Test VBG pH VBG pCO2 VBG pO2 VBG HCO3 VBG O2 Saturation VBG Base Excess Barometric Pressure Oxygen Given O2 Delivery Device POC FiO2 IPAP POC Sodium Sodium POC Potassium Potassium POC Chloride Chloride Carbon Dioxide POC Total CO2 Anion Gap POC Anion Gap POC BUN BUN Creatinine POC Creatinine Est Cr Clr Drug Dosing Est GFR ( Amer) Est GFR (Non-Af Amer) BUN/Creatinine Ratio Glucose POC Glucose 113 H POC Glucose (other) Estimat Average Glucose Hemoglobin A1c Lactate Calcium POC Ioniz Calcium Angelica Phosphorus Magnesium Total Bilirubin AST ALT Alkaline Phosphatase Troponin I C-Reactive Protein NT-Pro-B Natriuret Pep Total Protein Albumin Globulin Albumin/Globulin Ratio Procalcitonin Random Cortisol Specimen Hemolysis Urine Color Yellow Urine Appearance Cloudy A Urine pH 5.0 Ur Specific [place] 1.024 Urine Protein 1+ H Urine Glucose (UA) Negative Urine Ketones Negative Urine Blood Negative Urine Nitrite Negative Urine Bilirubin Negative Urine Urobilinogen Negative Ur Leukocyte Esterase Negative Urine WBC (Auto) 1-5 Urine RBC (Auto) 0-4 U Hyaline Cast (Auto) 5-10 H U Epithel Cells (Auto) >30 H Urine Bacteria (Auto) Negative Ur Renal Epithelial Cell Not Reportable Urine Mucus Present A Nasal Screen MRSA (PCR) Negative 08/12/19 08/12/19 08/12/19 15:54 17:10 21:38 WBC RBC Hgb POC Hgb Hct POC Hct MCV MCH MCHC RDW Std Deviation RDW Coeff of Tam Plt Count MPV Immature Gran % (Auto) Neut % (Auto) Lymph % (Auto) [place] % (Auto) Eos % (Auto) Baso % (Auto) Immature Gran # (Auto) Neut # (Auto) Lymph # (Auto) [place] # (Auto) Eos # (Auto) Baso # (Auto) Hypochromasia Basophilic Stippling Stomatocytes ESR PT INR APTT PTT Ratio Sample Site L Radial POC pH 7.27 L POC pCO2 93 H POC pO2 104 H POC HCO3 43 H POC Base Excess 16.0 H ABG pH ABG pH (Temp Correct) 7.287 L ABG pCO2 ABG pCO2 (Temp Corrct 89 H ABG pO2 POC ABG pO2 at Pt Temp 99 ABG HCO3 POC ABG O2 Sat 97.0 H ABG O2 Saturation ABG Base Excess Kyree Test Pass VBG pH VBG pCO2 VBG pO2 VBG HCO3 VBG O2 Saturation VBG Base Excess Barometric Pressure Oxygen Given O2 Delivery Device BIPAP POC FiO2 50 IPAP 16 POC Sodium Sodium 142 POC Potassium Potassium 4.9 POC Chloride Chloride 97 L Carbon Dioxide 43 H* POC Total CO2 > 40 H* Anion Gap 2.0 L POC Anion Gap POC BUN BUN 59 H Creatinine 0.94 POC Creatinine Est Cr Clr Drug Dosing 43.5 Est GFR ( Amer) 63.2 Est GFR (Non-Af Amer) 54.5 BUN/Creatinine Ratio 62.3 H Glucose 115 H POC Glucose 110 H POC Glucose (other) Estimat Average Glucose Hemoglobin A1c Lactate Calcium 8.7 POC Ioniz Calcium Angelica Phosphorus 5.8 H Magnesium 2.5 H Total Bilirubin 0.6 AST 48 H ALT 119 H Alkaline Phosphatase 97 Troponin I C-Reactive Protein NT-Pro-B Natriuret Pep Total Protein 6.0 L Albumin 3.4 Globulin 2.6 Albumin/Globulin Ratio 1.3 Procalcitonin Random Cortisol Specimen Hemolysis Urine Color Urine Appearance Urine pH Ur Specific [place] Urine Protein Urine Glucose (UA) Urine Ketones Urine Blood Urine Nitrite Urine Bilirubin Urine Urobilinogen Ur Leukocyte Esterase Urine WBC (Auto) Urine RBC (Auto) U Hyaline Cast (Auto) U Epithel Cells (Auto) Urine Bacteria (Auto) Ur Renal Epithelial Cell Urine Mucus Nasal Screen MRSA (PCR) 08/12/19 08/12/19 08/13/19 23:29 23:29 04:20 WBC RBC Hgb POC Hgb Hct POC Hct MCV MCH MCHC RDW Std Deviation RDW Coeff of Tam Plt Count MPV Immature Gran % (Auto) Neut % (Auto) Lymph % (Auto) [place] % (Auto) Eos % (Auto) Baso % (Auto) Immature Gran # (Auto) Neut # (Auto) Lymph # (Auto) [place] # (Auto) Eos # (Auto) Baso # (Auto) Hypochromasia Basophilic Stippling Stomatocytes ESR PT INR APTT 65.8 H* PTT Ratio 2.4 Sample Site POC pH POC pCO2 POC pO2 POC HCO3 POC Base Excess ABG pH 7.41 ABG pH (Temp Correct) ABG pCO2 72 H ABG pCO2 (Temp Corrct ABG pO2 93 POC ABG pO2 at Pt Temp ABG HCO3 45 H POC ABG O2 Sat ABG O2 Saturation 94.7 ABG Base Excess 17.7 H Kyree Test Pos VBG pH 7.35 L VBG pCO2 86 H VBG pO2 51 VBG HCO3 46 VBG O2 Saturation 83.6 VBG Base Excess 16.4 Barometric Pressure 730.1 729.7 Oxygen Given OXYGEN FLOW RATE 3 O2 Delivery Device POC FiO2 IPAP POC Sodium Sodium POC Potassium Potassium POC Chloride Chloride Carbon Dioxide POC Total CO2 Anion Gap POC Anion Gap POC BUN BUN Creatinine POC Creatinine Est Cr Clr Drug Dosing Est GFR ( Amer) Est GFR (Non-Af Amer) BUN/Creatinine Ratio Glucose POC Glucose POC Glucose (other) Estimat Average Glucose Hemoglobin A1c Lactate Calcium POC Ioniz Calcium Angelica Phosphorus Magnesium Total Bilirubin AST ALT Alkaline Phosphatase Troponin I C-Reactive Protein NT-Pro-B Natriuret Pep Total Protein Albumin Globulin Albumin/Globulin Ratio Procalcitonin Random Cortisol Specimen Hemolysis Urine Color Urine Appearance Urine pH Ur Specific [place] Urine Protein Urine Glucose (UA) Urine Ketones Urine Blood Urine Nitrite Urine Bilirubin Urine Urobilinogen Ur Leukocyte Esterase Urine WBC (Auto) Urine RBC (Auto) U Hyaline Cast (Auto) U Epithel Cells (Auto) Urine Bacteria (Auto) Ur Renal Epithelial Cell Urine Mucus Nasal Screen MRSA (PCR) 08/13/19 08/13/19 08/13/19 04:30 04:30 04:30 WBC 6.16 RBC 3.72 L Hgb 11.2 L POC Hgb Hct 38.9 POC Hct MCV 104.6 H MCH 30.1 MCHC 28.8 L RDW Std Deviation 56.2 H RDW Coeff of Tam 14.6 H Plt Count 189 MPV 10.2 Immature Gran % (Auto) 0.2 Neut % (Auto) 74.3 Lymph % (Auto) 11.4 [place] % (Auto) 13.3 Eos % (Auto) 0.5 Baso % (Auto) 0.3 Immature Gran # (Auto) 0.01 Neut # (Auto) 4.58 Lymph # (Auto) 0.70 L [place] # (Auto) 0.82 H Eos # (Auto) 0.03 Baso # (Auto) 0.02 Hypochromasia Basophilic Stippling Stomatocytes ESR PT INR APTT PTT Ratio Sample Site POC pH POC pCO2 POC pO2 POC HCO3 POC Base Excess ABG pH ABG pH (Temp Correct) ABG pCO2 ABG pCO2 (Temp Corrct ABG pO2 POC ABG pO2 at Pt Temp ABG HCO3 POC ABG O2 Sat ABG O2 Saturation ABG Base Excess Kyree Test VBG pH VBG pCO2 VBG pO2 VBG HCO3 VBG O2 Saturation VBG Base Excess Barometric Pressure Oxygen Given O2 Delivery Device POC FiO2 IPAP POC Sodium Sodium 143 POC Potassium Potassium 4.1 D POC Chloride Chloride 95 L Carbon Dioxide 41 H* POC Total CO2 Anion Gap 6.0 POC Anion Gap POC BUN BUN 49 H Creatinine 0.70 POC Creatinine Est Cr Clr Drug Dosing 58.0 Est GFR ( Amer) 90.3 Est GFR (Non-Af Amer) 77.9 BUN/Creatinine Ratio 69.3 H Glucose 116 H POC Glucose POC Glucose (other) Estimat Average Glucose 111 Hemoglobin A1c 5.5 Lactate Calcium 8.3 L POC Ioniz Calcium Angelica Phosphorus Magnesium 2.1 Total Bilirubin 0.8 AST 84 H ALT 151 H Alkaline Phosphatase 82 Troponin I C-Reactive Protein NT-Pro-B Natriuret Pep 1658 Total Protein 5.5 L Albumin 3.0 L Globulin 2.5 Albumin/Globulin Ratio 1.2 Procalcitonin Random Cortisol Specimen Hemolysis Urine Color Urine Appearance Urine pH Ur Specific [place] Urine Protein Urine Glucose (UA) Urine Ketones Urine Blood Urine Nitrite Urine Bilirubin Urine Urobilinogen Ur Leukocyte Esterase Urine WBC (Auto) Urine RBC (Auto) U Hyaline Cast (Auto) U Epithel Cells (Auto) Urine Bacteria (Auto) Ur Renal Epithelial Cell Urine Mucus Nasal Screen MRSA (PCR) 08/13/19 04:30 WBC RBC Hgb POC Hgb Hct POC Hct MCV MCH MCHC RDW Std Deviation RDW Coeff of Tam Plt Count MPV Immature Gran % (Auto) Neut % (Auto) Lymph % (Auto) [place] % (Auto) Eos % (Auto) Baso % (Auto) Immature Gran # (Auto) Neut # (Auto) Lymph # (Auto) [place] # (Auto) Eos # (Auto) Baso # (Auto) Hypochromasia Basophilic Stippling Stomatocytes ESR PT INR APTT 82.3 H* PTT Ratio 3.0 Sample Site POC pH POC pCO2 POC pO2 POC HCO3 POC Base Excess ABG pH ABG pH (Temp Correct) ABG pCO2 ABG pCO2 (Temp Corrct ABG pO2 POC ABG pO2 at Pt Temp ABG HCO3 POC ABG O2 Sat ABG O2 Saturation ABG Base Excess Kyree Test VBG pH VBG pCO2 VBG pO2 VBG HCO3 VBG O2 Saturation VBG Base Excess Barometric Pressure Oxygen Given O2 Delivery Device POC FiO2 IPAP POC Sodium Sodium POC Potassium Potassium POC Chloride Chloride Carbon Dioxide POC Total CO2 Anion Gap POC Anion Gap POC BUN BUN Creatinine POC Creatinine Est Cr Clr Drug Dosing Est GFR ( Amer) Est GFR (Non-Af Amer) BUN/Creatinine Ratio Glucose POC Glucose POC Glucose (other) Estimat Average Glucose Hemoglobin A1c Lactate Calcium POC Ioniz Calcium Angelica Phosphorus Magnesium Total Bilirubin AST ALT Alkaline Phosphatase Troponin I C-Reactive Protein NT-Pro-B Natriuret Pep Total Protein Albumin Globulin Albumin/Globulin Ratio Procalcitonin Random Cortisol Specimen Hemolysis Urine Color Urine Appearance Urine pH Ur Specific [place] Urine Protein Urine Glucose (UA) Urine Ketones Urine Blood Urine Nitrite Urine Bilirubin Urine Urobilinogen Ur Leukocyte Esterase Urine WBC (Auto) Urine RBC (Auto) U Hyaline Cast (Auto) U Epithel Cells (Auto) Urine Bacteria (Auto) Ur Renal Epithelial Cell Urine Mucus Nasal Screen MRSA (PCR)
--- NOTE | 2019-08-13 10:58 | Critical Care Progress Note ---
Date of Service August 13, 2019 Assessment & Plan (1) Acute on chronic respiratory failure with hypoxia and hypercapnia: -- Acute on chronic hypoxic hypercapnic respiratory failure Likely sec to COPD exacerbation with a component of sleep apnea Continue with inhaled bronchodilators, antibiotics Maintain SPO2 between 88 to 92% BiPAP nightly and as needed shortness of breath Patient is awake and alert and is able to protect her airway. Explained to the patient that if there is any clinical deterioration in the respiratory status will need intubation. Patient states that if there is needed to intubate to keep her alive do so but do not keep her on the vent forever. (2) AMS (altered mental status): Likely secondary to hypercapnia. Improving. Aspiration precautions. Monitor (3) Atrial fibrillation with RVR: New onset A. fib Load with diltiazem 50 mg followed by Cardizem drip Goal heart rate less than 110 ChadVasc score 5 There is no contraindication to anticoagulation We will start the patient on heparin drip Social work consulted to see patient will be able to get newer anticoagulants. (4) Pulmonary hypertension: Likely type III, component of type II cannot be excluded 2D echo shows RVSP of 50, ejection fraction 55%. Very cautious diuresis, do not want to decrease the preload. (5) COPD exacerbation: Continue with inhaled therapy Antibiotic Keep O2 saturation between 88 to 92% No need for steroids for the time being. Due to chronic respiratory failure consequent to COPD, patient now requires noninvasive home ventilator. Bilevel therapy with and without a rate would be ineffective as patient requires a volume targeted mode. Ventilation is required to decrease the work of breathing and improve pulmonary status. Introduction of ventilator support would lead to decline of health status. NIMV settings should be AVAPS-AE; Breath rate: auto; Inspiratory time:auto; Sigh: off; PS min: 14; PS max 22; EPAP min: 6; EPAP max: 10; AVAPS rate: 14 during sleep and as needed (6) HTN (hypertension): (7) Dyslipidemia: (8) Macrocytic anemia: Follow-up anemia work-up, vitamin B12 and folate level. Subjective Patient seen and examined at bedside. No acute distress, no adverse events overnight. Patient was off BiPAP when I saw the patient. States that the shortness of breath is improved. Denies any chest pain, no headache, no nausea, no vomiting. Denies any belly pain. No dizziness. Review of Systems Review of Systems: All systems reviewed & are unremarkable except as noted in HPI & below Physical Exam Physical Exam: Constitutional: No respiratory distress, talking in full sentences. HEENT: EOMI, PERRLA, short neck, positive JVD Respiratory system: Decreased air entry on the right side, minimal crackles, no wheeze, no rhonchi CVS: S1-S2 positive, no murmurs or gallops, irregular rhythm Abdomen: Soft, nontender, nondistended, positive bowel sounds x4 Extremities: +2 pulses bilaterally radialis/ dorsalis pedis, +3 pitting edema bilateral lower extremity, no cyanosis Neuro: Awake alert oriented x3, following commands. Psych: Normal mood and affect G/U: Positive Payan Lymphatic: no cervical or axillary lymphadenopathy Results & Data Vital Signs (Past 12 Hours) Vital Signs Pulse Pulse Resp Pulse Ox 08/13/19 07:41 94 H 24 97 08/13/19 07:16 94 H 24 97 08/13/19 05:31 113 H 18 93 08/13/19 01:24 90 16 97 08/12/19 23:59 88 Laboratory Results 08/13/19 04:30 08/13/19 04:30 PG Care Time/CCT Total # of Minutes Spent Total Time Spent with Patient: Total time spent is greater than 50% in coordination of care (as documented) at patient's floor/unit and/or counseling patient: Critical Care Time: Yes Total Critical Care Time: 45 (1) AMS (altered mental status) Altered mental status type: unspecified Qualified Code(s): R41.82 - Altered mental status, unspecified
[2019-08-13] MEDS ORDERED: ALBUT/IPRATROP 3MG/0.5MG NEB 3 ML VIAL NEB PRN (11:42)
[2019-08-13 12:31] LABS: Partial Thromboplastin Ratio 2.2
[2019-08-13 12:37] LABS: Partial Thromboplastin Time 59.2 Seconds (21.0-31.0)
--- NOTE | 2019-08-13 17:11 | Hospitalist Progress Note ---
Date of Service August 13, 2019 Assessment & Plan (1) Atrial fibrillation with RVR: Acute hypoxic, hypercapnic respiratory failure secondary to CHF exacerbation and possible pneumonia pH 7.1 on admission Weaned off BiPAP, now on nasal cannula Management of CHF, COPD and pneumonia noted below appreciate Stone Paver recommendations Metabolic Encephalopathy secondary to #1 resolved Atrial fibrillation echo: ef 50-55%, RV moderately dilated, RV systolic function mildly reduced Metoprolol p.o. started, Diltiazem drip being weaned off Heparin continued, plan for Eliquis on discharge appreciate Cardioogist recommendations Congestive heart failure, diastolic type Lasix 40mg IV BID monitor diuresis Possible pneumonia Ceftriaxone IV COPD exacerbation Albuterol q6h DVT prophylaxis Heparin drip Disposition pending will need PT/OT eval Subjective Follow-up for atrial fibrillation, CHF exacerbation, pleural effusion, COPD exacerbatioSeen resting in bed, comfortable, not in distress States that she feels somewhat improved compared to yesterday Less dyspnea, has dry cough No chest pain No chills Denies abdominal pain, nausea vomiting, palpitations, dizziness Denies any symptoms Review of Systems Review of Systems: All systems reviewed & are unremarkable except as noted in HPI & below Physical Exam Physical Exam: General- oriented x 3, not in distress, speaks in sentences with no effort or accessory muscle use Head- atraumatic Eyes- PERRL, EOMI, anicteric ENT- oropharynx clear Neck- supple, no JVD, no adenopathy, no thyromegaly; carotids +2/2, no bruits appreciated Lungs- Decreased breath sounds bilateral bases, with crackles and intermittent faint wheeze Heart- normal rate,Irregularly irregular rhythm; no murmur, no gallop, no rub appreciated Abdomen- normal bowel sounds, nondistended, soft, nontender, no masses or hepatosplenomegaly Extremities-Mild lower leg edema, no calf tenderness; peripheral pulses intact Neuro- alert, oriented x 3; CN 2-12 grossly intact; motor 5/5 bilaterally;sensation 100% on all extremities; no other gross focal neurologic deficits Skin- warm & dry Results & Data Vital Signs (Past 12 Hours) Vital Signs Temp Pulse Pulse Resp BP Pulse Ox 08/13/19 14:15 90 26 H 94 08/13/19 13:00 100 H 26 H 98/55 L 91 08/13/19 12:00 36.7 C 112 H 23 113/74 88 L 08/13/19 11:34 93 H 22 99 08/13/19 11:00 118 H 27 H 118/89 94 08/13/19 10:00 79 28 H 115/79 93 08/13/19 09:01 111 H 27 H 120/46 L 90 08/13/19 08:00 36.6 C 112 H 25 H 125/75 91 08/13/19 07:41 94 H 24 97 08/13/19 07:16 94 H 24 97 08/13/19 07:00 96 H 23 122/62 96 08/13/19 05:31 113 H 18 93 Laboratory Results Laboratory Results - last 24 hr 08/12/19 08/12/19 08/12/19 15:30 17:10 21:38 WBC RBC Hgb Hct MCV MCH MCHC RDW Std Deviation RDW Coeff of Tam Plt Count MPV Immature Gran % (Auto) Neut % (Auto) Lymph % (Auto) Deuel % (Auto) Eos % (Auto) Baso % (Auto) Immature Gran # (Auto) Neut # (Auto) Lymph # (Auto) Deuel # (Auto) Eos # (Auto) Baso # (Auto) APTT PTT Ratio ABG pH ABG pCO2 ABG pO2 ABG HCO3 ABG O2 Saturation ABG Base Excess Kyree Test VBG pH VBG pCO2 VBG pO2 VBG HCO3 VBG O2 Saturation VBG Base Excess Barometric Pressure Oxygen Given Sodium 142 Potassium 4.9 Chloride 97 L Carbon Dioxide 43 H* Anion Gap 2.0 L BUN 59 H Creatinine 0.94 Est Cr Clr Drug Dosing 43.5 Est GFR ( Amer) 63.2 Est GFR (Non-Af Amer) 54.5 BUN/Creatinine Ratio 62.3 H Glucose 115 H POC Glucose 110 H Estimat Average Glucose Hemoglobin A1c Calcium 8.7 Phosphorus 5.8 H Magnesium 2.5 H Total Bilirubin 0.6 AST 48 H ALT 119 H Alkaline Phosphatase 97 NT-Pro-B Natriuret Pep Total Protein 6.0 L Albumin 3.4 Globulin 2.6 Albumin/Globulin Ratio 1.3 Specimen Hemolysis Nasal Screen MRSA (PCR) Negative 08/12/19 08/12/19 08/13/19 23:29 23:29 04:20 WBC RBC Hgb Hct MCV MCH MCHC RDW Std Deviation RDW Coeff of Tam Plt Count MPV Immature Gran % (Auto) Neut % (Auto) Lymph % (Auto) Deuel % (Auto) Eos % (Auto) Baso % (Auto) Immature Gran # (Auto) Neut # (Auto) Lymph # (Auto) Deuel # (Auto) Eos # (Auto) Baso # (Auto) APTT 65.8 H* PTT Ratio 2.4 ABG pH 7.41 ABG pCO2 72 H ABG pO2 93 ABG HCO3 45 H ABG O2 Saturation 94.7 ABG Base Excess 17.7 H Kyree Test Pos VBG pH 7.35 L VBG pCO2 86 H VBG pO2 51 VBG HCO3 46 VBG O2 Saturation 83.6 VBG Base Excess 16.4 Barometric Pressure 730.1 729.7 Oxygen Given OXYGEN FLOW RATE 3 Sodium Potassium Chloride Carbon Dioxide Anion Gap BUN Creatinine Est Cr Clr Drug Dosing Est GFR ( Amer) Est GFR (Non-Af Amer) BUN/Creatinine Ratio Glucose POC Glucose Estimat Average Glucose Hemoglobin A1c Calcium Phosphorus Magnesium Total Bilirubin AST ALT Alkaline Phosphatase NT-Pro-B Natriuret Pep Total Protein Albumin Globulin Albumin/Globulin Ratio Specimen Hemolysis Nasal Screen MRSA (PCR) 08/13/19 08/13/19 08/13/19 04:30 04:30 04:30 WBC 6.16 RBC 3.72 L Hgb 11.2 L Hct 38.9 MCV 104.6 H MCH 30.1 MCHC 28.8 L RDW Std Deviation 56.2 H RDW Coeff of Tam 14.6 H Plt Count 189 MPV 10.2 Immature Gran % (Auto) 0.2 Neut % (Auto) 74.3 Lymph % (Auto) 11.4 Deuel % (Auto) 13.3 Eos % (Auto) 0.5 Baso % (Auto) 0.3 Immature Gran # (Auto) 0.01 Neut # (Auto) 4.58 Lymph # (Auto) 0.70 L Deuel # (Auto) 0.82 H Eos # (Auto) 0.03 Baso # (Auto) 0.02 APTT PTT Ratio ABG pH ABG pCO2 ABG pO2 ABG HCO3 ABG O2 Saturation ABG Base Excess Kyree Test VBG pH VBG pCO2 VBG pO2 VBG HCO3 VBG O2 Saturation VBG Base Excess Barometric Pressure Oxygen Given Sodium 143 Potassium 4.1 D Chloride 95 L Carbon Dioxide 41 H* Anion Gap 6.0 BUN 49 H Creatinine 0.70 Est Cr Clr Drug Dosing 58.0 Est GFR ( Amer) 90.3 Est GFR (Non-Af Amer) 77.9 BUN/Creatinine Ratio 69.3 H Glucose 116 H POC Glucose Estimat Average Glucose 111 Hemoglobin A1c 5.5 Calcium 8.3 L Phosphorus Magnesium 2.1 Total Bilirubin 0.8 AST 84 H ALT 151 H Alkaline Phosphatase 82 NT-Pro-B Natriuret Pep 1658 Total Protein 5.5 L Albumin 3.0 L Globulin 2.5 Albumin/Globulin Ratio 1.2 Specimen Hemolysis Nasal Screen MRSA (PCR) 08/13/19 08/13/19 08/13/19 04:30 11:30 11:47 WBC RBC Hgb Hct MCV MCH MCHC RDW Std Deviation RDW Coeff of Tam Plt Count MPV Immature Gran % (Auto) Neut % (Auto) Lymph % (Auto) Deuel % (Auto) Eos % (Auto) Baso % (Auto) Immature Gran # (Auto) Neut # (Auto) Lymph # (Auto) Deuel # (Auto) Eos # (Auto) Baso # (Auto) APTT 82.3 H* 59.2 H* PTT Ratio 3.0 2.2 ABG pH ABG pCO2 ABG pO2 ABG HCO3 ABG O2 Saturation ABG Base Excess Kyree Test VBG pH VBG pCO2 VBG pO2 VBG HCO3 VBG O2 Saturation VBG Base Excess Barometric Pressure Oxygen Given Sodium Potassium Chloride Carbon Dioxide Anion Gap BUN Creatinine Est Cr Clr Drug Dosing Est GFR ( Amer) Est GFR (Non-Af Amer) BUN/Creatinine Ratio Glucose POC Glucose 105 H Estimat Average Glucose Hemoglobin A1c Calcium Phosphorus Magnesium Total Bilirubin AST ALT Alkaline Phosphatase NT-Pro-B Natriuret Pep Total Protein Albumin Globulin Albumin/Globulin Ratio Specimen Hemolysis Nasal Screen MRSA (PCR)
[2019-08-13] MEDS: HEPARIN SODIUM/DEXTROSE 25,000 UNITS/500 ML BAG IV SCH (17:43)
[2019-08-13] MEDS ORDERED: cefTRIAXone SODIUM 2,000 MG in DEXTROSE 5% 50 ML IV SCH (18:00)
[2019-08-13] MEDS ORDERED: METOPROLOL TARTRATE 50 MG TAB PO SCH (21:00)
[2019-08-14 05:11] LABS: Base Excess VBG 10.7 mEq/L; Oxygen Saturation VBG 89.9 %; pH VBG 7.4 (7.36-7.41)
[2019-08-14 05:28] LABS: BUN Creatinine Ratio 49.1 (10-20); Calcium 7.8 mg/dl (8.5-10.1); Creatinine Clr Calc Pharmacy 49.3 ml/min; Est GFR (African American) 73.5; Est GFR (Non-African American) 63.4; Potassium 3.4 mmol/L (3.5-5.1)
[2019-08-14 05:29] LABS: Partial Thromboplastin Ratio 2.4
[2019-08-14 05:34] LABS: Partial Thromboplastin Time 65.2 Seconds (21.0-31.0)
[2019-08-14] MEDS ORDERED: POTASSIUM CHLORIDE 20 MEQ TABCR PO ONE (06:00)
[2019-08-14 06:08] LABS: Basophils # (auto) 0.01 K/uL (0-0.2); Basophils % (auto) 0.2 %; Eosinophils # (auto) 0.03 K/uL (0-0.5); Eosinophils % (auto) 0.7 %; Hematocrit (blood only) 36.4 % (37-47); Hemoglobin 10.7 g/dL (12.0-16.0); Lymphocytes # (auto) 0.85 K/uL (1.2-3.4); Lymphocytes % (auto) 19.4 %; Mean Corpuscular Hemoglobin 30.4 pg (25-34); Mean Corpuscular Hgb Conc 29.4 g/dL (32-36); Mean Corpuscular Volume 103.4 fL (80-100); Mean Platelet Volume 9.7 fL (7.4-10.4); Monocytes # (auto) 0.69 K/uL (0.11-0.59); Monocytes % (auto) 15.7 %; Neutrophils # (auto) 2.81 K/uL (1.4-6.5); Platelet Count 162 K/uL (130-400); RDW Coefficient of Variation 14.8 % (11.5-14.5); RDW Standard Deviation 56.2 fL (36.4-46.3); Red Blood Count 3.52 M/uL (4.2-5.4); White Blood Count 4.39 K/uL (4.8-10.8)
[2019-08-14] MEDS: ALBUT/IPRATROP 3MG/0.5MG NEB 3 ML VIAL NEB SCH ×2 (06:54→16:16)
--- NOTE | 2019-08-14 07:24 | XRay Report ---
XR chest 1V portable HISTORY: Respiratory failure. COMPARISON: Chest 08/13/2019. FINDINGS: Persistent elevation the right hemidiaphragm. Bilateral pleural effusions and bibasilar den sities persist. Mild congestive change is again noted. The heart remains enlarged. No pneumothorax. IMPRESSION: No change in the mild pulmonary vascular congestion and bilateral pleural effusion/densities. Electronically signed by: Zak Alvarez M.D. 08/14/2019 7:23 AM
[2019-08-14] MEDS: METOPROLOL TARTRATE 50 MG TAB PO SCH ×2 (08:41→21:25)
[2019-08-14] MEDS ORDERED: TIOTROPIUM BROMIDE 5 PUFF/90 MCG INH INH SCH (09:00)
[2019-08-14] MEDS ORDERED: FUROSEMIDE 40 MG in SYRINGE 0 ML IV SCH (09:00)
--- NOTE | 2019-08-14 09:42 | Critical Care Progress Note ---
Date of Service August 14, 2019 Assessment & Plan (1) Acute on chronic respiratory failure with hypoxia and hypercapnia: -- Acute on chronic hypoxic hypercapnic respiratory failure Likely sec to COPD exacerbation with a component of sleep apnea Continue with inhaled bronchodilators, antibiotics Maintain SPO2 between 88 to 92% BiPAP nightly and as needed shortness of breath -Patient's pH yesterday was 7.42, bicarb is 46. Will start the patient on acetazolamide for 3 days with holding parameters. Change Lasix to once daily. Patient is awake and alert and is able to protect her airway. Explained to the patient that if there is any clinical deterioration in the respiratory status w ill need intubation. Patient states that if there is needed to intubate to keep her alive do so but do not keep her on the vent forever. We will check with ultrasound to see how much pleural effusion the patient has and if it is good enough to be tapped will do thoracentesis today. (2) AMS (altered mental status): Likely secondary to hypercapnia. Back to baseline Aspiration precautions. Monitor (3) Atrial fibrillation with RVR: New onset A. fib Load with diltiazem 50 mg followed by Cardizem drip, beta-ruben started Goal heart rate less than 110 ChadVasc score 5 There is no contraindication to anticoagulation On heparin drip Social work consulted to see patient will be able to get newer anticoagulants. (4) Pulmonary hypertension: Likely type III, component of type II cannot be excluded 2D echo shows RVSP of 50 with moderately dilated right ventricle, ejection fraction 55%. Very cautious diuresis, do not want to decrease the preload. (5) COPD exacerbation: Continue with inhaled therapy Antibiotic Keep O2 saturation between 88 to 92% No need for steroids for the time being. Due to chronic respiratory failure consequent to COPD, patient now requires noninvasive home ventilator. Bilevel therapy with and without a rate would be ineffective as patient requires a volume targeted mode. Ventilation is required to decrease the work of breathing and improve pulmonary status. Interruption of ventilator support would lead to decline of health status. (6) HTN (hypertension): (7) Dyslipidemia: (8) Macrocytic anemia: Follow-up anemia work-up, vitamin B12 and folate level. (9) Hematuria: New onset hematuria while the patient is on heparin drip. There is a drop in hemoglobin to. We will repeat H&H. If there is still drop will DC heparin drip. Subjective Patient seen and examined at bedside. No acute distress, no adverse events overnight. Patient is feeling a little bit better. States that shortness of breath is improved. Denies any chest pain, no headache, no nausea, no vomiting, no dizziness. Urinating well. Hematuria appreciated in the Payan catheter today. Patient is on heparin drip we will repeat H&H and see if it is still dropping we will DC the heparin drip. Off diltiazem drip. In-N-Out: Negative 455 mL. Review of Systems Review of Systems: All systems reviewed & are unremarkable except as noted in HPI & below Physical Exam Physical Exam: Constitutional: No respiratory distress, talking in full sentences. HEENT: EOMI, PERRLA, short neck Respiratory system: Decreased air entry b/l, minimal crackles, no wheeze, no rhonchi CVS: S1-S2 positive, no murmurs or gallops, irregular rhythm Abdomen: Soft, nontender, nondistended, positive bowel sounds x4 Extremities: +2 pulses bilaterally radialis/ dorsalis pedis, +3 pitting edema bilateral lower extremity, no cyanosis Neuro: Awake alert oriented x3, following commands. Psych: Normal mood and affect G/U: Positive Payan Lymphatic: no cervical or axillary lymphadenopathy Results & Data Vital Signs (Past 12 Hours) Vital Signs Temp Pulse Pulse Resp BP Pulse Ox 08/14/19 06:55 105 H 16 90 08/14/19 06:01 36.3 C L 92 H 25 H 104/63 92 08/14/19 06:00 98 H 20 94 08/14/19 05:00 86 13 112/65 97 08/14/19 04:00 97 H 22 84/49 L 95 08/14/19 03:00 92 H 31 H 87/51 L 95 08/14/19 02:00 36.5 C 97 H 24 87/49 L 95 08/14/19 01:00 85 27 H 93/50 L 08/14/19 00:06 87 25 H 89/59 L 92 08/13/19 23:59 104 H 08/13/19 23:58 102 H 93 H 22 93 08/13/19 23:00 100 H 20 90/55 L 94 08/13/19 22:01 114 H 22 103/50 L 99 08/13/19 22:00 89 28 H 94 Laboratory Results 08/14/19 05:01 08/14/19 05:01 Intake & Output 08/12/19 08/13/19 08/14/19 08/15/19 06:59 06:59 06:59 06:59 Intake Total 1732.767 / 3998.915 6309.399 / 1722.399 30.667 / 30.667 Output Total 1775 / 1775 2275 / 2275 Balance -42.233 / -42.233 -552.601 / -552.601 30.667 / 30.667 Weight 83.6 kg 85 kg 85 kg 08/14/19 08/14/19 08/14/19 Range/Units 05:01 05:01 05:01 WBC 4.39 L (4.8-10.8) K/uL RBC 3.52 L (4.2-5.4) M/uL Hgb 10.7 L (12.0-16.0) g/dL Hct 36.4 L (37-47) % MCV 103.4 H (80-100) fL MCH 30.4 (25-34) pg MCHC 29.4 L (32-36) g/dL RDW Std Deviation 56.2 H (36.4-46.3) fL RDW Coeff of Tam 14.8 H (11.5-14.5) % Plt Count 162 (130-400) K/uL MPV 9.7 (7.4-10.4) fL Immature Gran % (Auto) 0.0 % Neut % (Auto) 64.0 % Lymph % (Auto) 19.4 % Sullivan % (Auto) 15.7 % Eos % (Auto) 0.7 % Baso % (Auto) 0.2 % Immature Gran # (Auto) 0.00 (0.00-0.02) K/uL Neut # (Auto) 2.81 (1.4-6.5) K/uL Lymph # (Auto) 0.85 L (1.2-3.4) K/uL Sullivan # (Auto) 0.69 H (0.11-0.59) K/uL Eos # (Auto) 0.03 (0-0.5) K/uL Baso # (Auto) 0.01 (0-0.2) K/uL APTT (21.0-31.0) Seconds PTT Ratio VBG pH 7.40 (7.36-7.41) VBG pCO2 63 H (38-50) mmHg VBG pO2 59 mmHg VBG HCO3 38 mmol/L VBG O2 Saturation 89.9 % VBG Base Excess 10.7 mEq/L Barometric Pressure 732.5 mm/Hg Sodium 142 (136-145) mmol/L Potassium 3.4 L D (3.5-5.1) mmol/L Chloride 90 L (98-107) mmol/L Carbon Dioxide 46 H* (21-32) mmol/L Anion Gap 6.0 (3-11) BUN 41 H (7-18) mg/dl Creatinine 0.83 (0.6-1.2) mg/dl Est Cr Clr Drug Dosing 49.3 ml/min Est GFR ( Amer) 73.5 Est GFR (Non-Af Amer) 63.4 BUN/Creatinine Ratio 49.1 H (10-20) Glucose 111 H (70-99) mg/dl POC Glucose (70-99) Calcium 7.8 L (8.5-10.1) mg/dl 08/14/19 08/13/19 08/13/19 Range/Units 05:01 20:57 18:40 WBC (4.8-10.8) K/uL RBC (4.2-5.4) M/uL Hgb (12.0-16.0) g/dL Hct (37-47) % MCV (80-100) fL MCH (25-34) pg MCHC (32-36) g/dL RDW Std Deviation (36.4-46.3) fL RDW Coeff of Tam (11.5-14.5) % Plt Count (130-400) K/uL MPV (7.4-10.4) fL Immature Gran % (Auto) % Neut % (Auto) % Lymph % (Auto) % Sullivan % (Auto) % Eos % (Auto) % Baso % (Auto) % Immature Gran # (Auto) (0.00-0.02) K/uL Neut # (Auto) (1.4-6.5) K/uL Lymph # (Auto) (1.2-3.4) K/uL Sullivan # (Auto) (0.11-0.59) K/uL Eos # (Auto) (0-0.5) K/uL Baso # (Auto) (0-0.2) K/uL APTT 65.2 H* (21.0-31.0) Seconds PTT Ratio 2.4 VBG pH (7.36-7.41) VBG pCO2 (38-50) mmHg VBG pO2 mmHg VBG HCO3 mmol/L VBG O2 Saturation % VBG Base Excess mEq/L Barometric Pressure mm/Hg Sodium (136-145) mmol/L Potassium (3.5-5.1) mmol/L Chloride (98-107) mmol/L Carbon Dioxide (21-32) mmol/L Anion Gap (3-11) BUN (7-18) mg/dl Creatinine (0.6-1.2) mg/dl Est Cr Clr Drug Dosing ml/min Est GFR ( Amer) Est GFR (Non-Af Amer) BUN/Creatinine Ratio (10-20) Glucose (70-99) mg/dl POC Glucose 121 H 188 H (70-99) Calcium (8.5-10.1) mg/dl 08/13/19 08/13/19 Range/Units 11:47 11:30 WBC (4.8-10.8) K/uL RBC (4.2-5.4) M/uL Hgb (12.0-16.0) g/dL Hct (37-47) % MCV (80-100) fL MCH (25-34) pg MCHC (32-36) g/dL RDW Std Deviation (36.4-46.3) fL RDW Coeff of Tam (11.5-14.5) % Plt Count (130-400) K/uL MPV (7.4-10.4) fL Immature Gran % (Auto) % Neut % (Auto) % Lymph % (Auto) % Sullivan % (Auto) % Eos % (Auto) % Baso % (Auto) % Immature Gran # (Auto) (0.00-0.02) K/uL Neut # (Auto) (1.4-6.5) K/uL Lymph # (Auto) (1.2-3.4) K/uL Sullivan # (Auto) (0.11-0.59) K/uL Eos # (Auto) (0-0.5) K/uL Baso # (Auto) (0-0.2) K/uL APTT 59.2 H* (21.0-31.0) Seconds PTT Ratio 2.2 VBG pH (7.36-7.41) VBG pCO2 (38-50) mmHg VBG pO2 mmHg VBG HCO3 mmol/L VBG O2 Saturation % VBG Base Excess mEq/L Barometric Pressure mm/Hg Sodium (136-145) mmol/L Potassium (3.5-5.1) mmol/L Chloride (98-107) mmol/L Carbon Dioxide (21-32) mmol/L Anion Gap (3-11) BUN (7-18) mg/dl Creatinine (0.6-1.2) mg/dl Est Cr Clr Drug Dosing ml/min Est GFR ( Amer) Est GFR (Non-Af Amer) BUN/Creatinine Ratio (10-20) Glucose (70-99) mg/dl POC Glucose 105 H (70-99) Calcium (8.5-10.1) mg/dl Diagnostic Findings Chest x-ray from today reviewed: No significant change from previous. Still right-sided hemidiaphragm appreciated. Mild bilateral pleural effusion. PG Care Time/CCT Total # of Minutes Spent Total Time Spent with Patient: Total time spent is greater than 50% in coordination of care (as documented) at patient's floor/unit and/or counseling patient: Critical Care Time: Yes Total Critical Care Time: 35 (1) AMS (altered mental status) Altered mental status type: unspecified Qualified Code(s): R41.82 - Altered mental status, unspecified
[2019-08-14 09:45] LABS: Appearance Urine Cloudy (Clear); Bilirubin Urine Negative (Negative); Blood Urine 3+ (Negative); Color Urine Red; Glucose Urine UA Negative (Negative); Ketones Urine Negative (Negative); Leukocyte Esterase Urine Trace (Negative); Nitrite Urine Negative (Negative); Protein Urine 1+ (Negative); Urobilinogen Urine Negative (Negative); pH Urine 5.5 (4.5-7.5)
[2019-08-14 09:50] LABS: Bacteria Urine 1+ (Negative); RBC Urine >30 /hpf (0-4); WBC Urine >30 /hpf (0-5)
[2019-08-14] MEDS: acetaZOLAMIDE 250 MG in SYRINGE 0 ML IV SCH ×2 (11:05→22:10)
[2019-08-14] MEDS ORDERED: dilTIAZem HCL 30 MG TAB PO ONE (11:09)
--- NOTE | 2019-08-14 11:17 | Cardiology Progress Note ---
Date of Service August 14, 2019 Assessment & Plan (1) Acute on chronic respiratory failure with hypoxia and hypercapnia: (2) Respiratory acidosis: (3) Atrial fibrillation with RVR: (4) Acute diastolic heart failure: (5) Acute right-sided heart failure: Add oral diltiazem, 30 mg 3 times daily. Patient will receive 1 dose now. Continue oral metoprolol titrated 25 mg twice daily. IV heparin placed on hold due to hematuria and declining hemoglobin. Monitor daily H&H. Patient is not a good candidate for transesophageal echo guided cardioversion due to respiratory insufficiency. Continue medical management recommended. Follow fluid balance, daily weight, GFR, electrolytes. Titrate Lasix to 40 mg twice daily. Recommend maintaining negative fluid balance at this time given marked edema and signs/symptoms of right-sided/diastolic heart failure. Wean oxygen per protocol. Baseline supplemental oxygen 2 L at home. Utilize BiPAP at night for acute on chronic CO2 retention and chronic hypoxia. Subjective Patient seen and examined at the bedside. Respiratory status improving. Heart rate improved however remains elevated. Intravenous diltiazem discontinued. Hematuria noted while on IV heparin. Patient denies palpitations or chest discomfort. Lower extremity edema unchanged. Fluid balance essentially even to mildly positive over the past 24 hours. Review of Systems Review of Systems: All systems reviewed & are unremarkable except as noted in HPI & below Physical Exam Physical Exam: General: NAD, awake and alert. Overweight. Well nourished. Chronically ill. HEENT: Normocephalic. Atraumatic. Conjunctiva pink, no scleral icterus. Neck: No carotid bruits, the carotid upstrokes are brisk. No JVD. No HJR Heart: Irregular, tachycardic. Normal S1 and S2. No murmur appreciated. PMI is not displaced. No RV heave. Lungs: + Expiratory wheeze bilateral, scattered rhonchi. Abdomen: Normal bowel sounds. Soft. Nontender. No masses or organomegaly. No abdominal bruits. Extremities: 2+ bilateral pitting pretibial edema. Pulses: radial=2/4,posterior tibial=2/4. Neuro: Patient moves all extremities. No facial asymmetry. Results & Data Vital Signs (Past 12 Hours) Vital Signs Temp Pulse Pulse Resp BP Pulse Ox 08/14/19 10:00 102 H 31 H 115/73 92 08/14/19 09:00 118 H 19 104/73 95 08/14/19 08:00 36.6 C 99 H 32 H 90 08/14/19 07:00 113 H 20 96 08/14/19 06:55 105 H 16 90 08/14/19 06:01 36.3 C L 92 H 25 H 104/63 92 08/14/19 06:00 98 H 20 94 08/14/19 05:00 86 13 112/65 97 08/14/19 04:00 97 H 22 84/49 L 95 08/14/19 03:00 92 H 31 H 87/51 L 95 08/14/19 02:00 36.5 C 97 H 24 87/49 L 95 08/14/19 01:00 85 27 H 93/50 L 08/14/19 00:06 87 25 H 89/59 L 92 08/13/19 23:59 104 H 08/13/19 23:58 102 H 93 H 22 93
[2019-08-14 11:59] LABS: Hematocrit (blood only) 39.9 % (37-47); Hemoglobin 11.7 g/dL (12.0-16.0)
[2019-08-14] MEDS: dilTIAZem HCL 30 MG TAB PO SCH ×2 (14:49→21:25)
--- NOTE | 2019-08-14 16:03 | Hospitalist Progress Note ---
Date of Service August 14, 2019 Assessment & Plan (1) Atrial fibrillation with RVR: Heart rate improved after IV Cardizem bolus/drip Changed to p.o. Cardizem, continue p.o. beta-ruben, appreciate cardiology input Calculated yesenia 2 VAS2 score 5: High risk for thromboembolic event She was started with IV heparin Developed gross hematuria, with acute drop in H&H IV heparin discontinued Continue to monitor Patient is not a candidate for JACKELINE cardioversion, given respiratory failure Acute hypoxic, hypercapnic respiratory failure secondary to CHF exacerbation pH 7.1 on admission Weaned off BiPAP, now on nasal cannula Management of CHF, COPD and pneumonia noted below appreciate Business Rules Developer recommendations Metabolic Encephalopathy secondary to #1 resolved Speech status improved to approximate baseline Congestive heart failure, diastolic type echo: ef 50-55%, RV moderately dilated, RV systolic function mildly reduced Continue Lasix, changed to p.o. Continue to monitor volume status Given right-sided decompensation, need to be cautious to prevent dehydration COPD exacerbation Possible reason of presentation with hypoxemic respiratory failure Patient improved with BiPAP Now transitioned to nasal cannula Benefit with home trilogy Appreciate input from pulmonary/critical care Recommends continue BiPAP at night Continue respiratory support with nebulizer treatment, steroids DVT prophylaxis Heparin drip discontinued-for hematuria Ordered for SCD and teds Disposition Stable to be discharged out of ICU Ordered for PT OT Subjective pt seen in ICU at approx 10 am repeat eval at PCU room 244 pt reports of being tired very lathergic noted in evening eval denies of SOB , chest heaviness Iv heparin remains on hold pressley draining dark ramakrishna color urine Physical Exam Constitutional: WD/WN, vitals as above no acute distress Eyes: PERRL, conjunctivae normal, anicteric sclerae ENMT: external ear and nose normal, oropharynx normal Neck: trachea midline, no thyromegaly Respiratory: no respiratory distress and no labored breathing Cardiovascular: Rate/Rhythm: + abnormal rhythm (Irregular/A. fib) Gastrointestinal (Abdomen): normal bowel sounds, soft, nontender, no hepatosplenomegaly Musculoskeletal: no cyanosis or clubbing, extremities motor strength 5/5 Skin: no rashes, warm and dry Neurologic: PERRL, EOMI, accommodation nl, no face palsy, no dysarthria Psychiatric: A+Ox3, euthymic affect Results & Data Vital Signs (Past 12 Hours) Vital Signs Temp Pulse Pulse Resp BP Pulse Ox 08/14/19 14:00 118 H 19 102/68 97 08/14/19 13:00 110 H 20 114/75 97 08/14/19 12:00 36.8 C 96 H 27 H 92/52 L 95 08/14/19 11:06 113 H 17 110/68 96 08/14/19 11:00 102 H 22 111/63 96 08/14/19 10:00 102 H 31 H 115/73 92 08/14/19 09:00 118 H 19 104/73 95 08/14/19 08:00 36.6 C 99 H 32 H 90 08/14/19 07:00 113 H 20 96 08/14/19 06:55 105 H 16 90 08/14/19 06:01 36.3 C L 92 H 25 H 104/63 92 08/14/19 06:00 98 H 20 94 08/14/19 05:00 86 13 112/65 97 08/14/19 04:00 97 H 22 84/49 L 95
[2019-08-14 19:25] VITALS: BP 110/73; PULSE 115; TEMP 97.9; O2SAT 92
--- NOTE | 2019-08-15 06:23 | Hospitalist Progress Note ---
Date of Service August 15, 2019 Subjective i was paged at home approx 10:30 pm last night -as pt became bradycardic , then went in [facility] cardiac arrest pt was DNR/DNI -no code was called pt asked nursing to call manager credit collections clinical quality manager Dr Mays to evaluate pt also to call family to notify I personally sent qliq message to Dr Mays updating pts status , He was in ER that time , he should be up on the floor to see the pt shortly pt was admitted with respiratory failure due to rapid afib /decompensated CHF was seen by myself, cardiology , and critical care team ( pt was in ICU ) earlier this morning also I had a short late evening round on her approx 8 pm clinically pt been improving ( stable to be tx out of ICU ) has been off anticoagulation /IV heparin for abrupt development of hematuria Jennifer Naranjo MD Results & Data Vital Signs (Past 12 Hours) Vital Signs Temp Pulse Resp BP Pulse Ox 08/14/19 19:24 36.6 C 115 H 23 110/73 92 08/14/19 18:48 36.4 C L 86 103/70 95
[2019-08-15] MEDS ORDERED: AZITHROMYCIN 250 MG TAB PO SCH (09:00)
--- NOTE | 2019-08-15 09:28 | Death Summary ---
Date of Service August 15, 2019 Was called and notified that patient at 22:33 on Aug 14 2019. Seen and examined patient.Patient seemed to elva down at around 22:30 and was around 22:33. Ge Unresponsive Eyes pupils dilated fixed and non reactive to light Neck no palpable carotid pulse CVs no heart sounds heard on ascultation RS no spontaneous breathing, no breath sounds heard on ascultation. Called and notified one of the daughter. Another daughter later came to the hospital. Explained possible cause of sudden demise could possibly be MN, PE or stroke. Offered autopsy but both the sisters declined at this time. Pronouncement Note Contributing Factors (1) Atrial fibrillation with RVR: Additional Data Attending physician: Jennifer Naranjo MD
--- NOTE | 2019-08-15 13:12 | Discharge Summary ---
Date of Service August 15, 2019 Admission HPI Per Admitting Provider This is a 89-year-old female who has a significant past medical history of chronic respiratory failure with hypoxia and hypercapnia on 2 L of O2, moderate COPD, HTN, HLD, history of breast CA, macular degeneration who presents to [facility] ED after significant drowsiness that occurred this morning prior to arrival. Patient states when she woke up this morning she had significant difficulty getting awake. Whenever she became awake she walked to the bathroom and sat on the toilet. Notes that she fell asleep on the toilet and was having a hard time staying awake. Her neighbor came to check on her and noted her to be very drowsy and somnolent and having difficulty breathing, EMS was called. Currently patient complains of shortness of breath, increased lower extremity swelling x2 to 3 weeks, orthopnea, PND. At baseline she does ambulate with a cane but does get short of breath with minimal activity. She denies any recent fever, chills, sweats, lightheadedness, dizziness, syncope, chest pain, palpitations, cough, hemoptysis, nausea, vomiting, diarrhea, abdominal pain, dysuria, increased urgency or frequency with urination. Overall feels her appetite has been adequate up until today. She does not have a scale and therefore has not weighed herself. She denies past medical history of atrial fibrillation or a flutter, history of CEZAR or on nocturnal device such as CPAP or BiPAP. She denies any history of heart failure. Her neighbors are at bedside. Currently patient feels her breathing status has improved after being on BiPAP. She denies any complaints of pain. In ED patient was noted to be in atrial fibrillation with rapid ventricular rate heart rates 140s to 160s, intermittent hypotension with systolic blood pressures in the 80s to 100s. Her initial VBG revealed pH of 7.15, PCO2 132, BUN 62, creatinine 1.12, AST 56, ALT 136, alk phos 120, troponin 0 0.022, BNP elevated 4246 Her procalcitonin was WNL. She did not have an elevated white count and she was afebrile throughout ER visit. Chest x-ray concerning for cardiomegaly with mild primary vascular congestion, right pleural effusion noted which was similar in prior exam 02/21/2019. Bibasilar consolidation also noted on plain film which could represent atelectasis and/or pneumonia/aspiration pneumonitis. In ED Pt received dose of IV Zosyn along with IVF. Principal Diagnosis Patient Discharge Exam Patient Discharge Data Allergies Allergy/AdvReac Type Severity Reaction Status Date / Time No Known Allergies Allergy Unknown Verified 08/12/19 14:53 Consultations 08/12/19 13:12 ED Decision to Admit Stat 08/12/19 13:38 Consult Division Order Technician Routine 08/12/19 13:56 Consult Cardiology Routine 08/12/19 15:28 Consult Case Management - Discharge Planning Routine Hospital Course (1) Atrial fibrillation with RVR: Patient admitted with acute hypoxemic respiratory failure was 7.1 on admission, required BiPAP Was admitted to ICU Developed rapid A. fib RVR was initially treated with IV Cardizem bolus/drip, Heart rate improved after IV Cardizem bolus/drip Changed to p.o. Cardizem, continue p.o. beta-ruben, appreciate cardiology input Calculated yesenia 2 VAS2 score 5: High risk for thromboembolic event She was started with IV heparin Developed gross hematuria, with acute drop in H&H IV heparin discontinued Patient was found is not a candidate for JACKELINE cardioversion, given respiratory failure She was clinically improved to be transitioned out of ICU to PCU telemetry Patient had an uneventful day, later on the evening patient noted to be more lethargic, difficult to arouse, but able to answer question, denied of any chest pain shortness of breath or orthopnea Remained in atrial fibrillation on monitor heart rate variable between [id number] Around 10:30 PM-initial heart rate was 110 patient became bradycardic with a pulse later went into PEA cardiac arrest And was a DNR/DNI So no shock or CPR provided Family members updated was pronounced at bedside by on-call hospitalist Patient Because of could be multifactorial: Acute hypoxemic respiratory failure Decompensated CHF, rapid A. fib RVR Possible leading to acute hypoxic events leading to bradycardia PEA cardiac arrest Option for autopsy was provided to patient's family members: Daughters given suddenness of Family declined autopsy Jennifer Naranjo MD Total Time Total Time Spent Total Time Spent (In Minutes): And Discharge Plan Discharge Items Patient Disposition: Discharge Diagnosis: Patient was admitted pain acute hypoxemic respiratory failure/COPD exacerbation/acute right-sided heart failure/CHF, A. fib RVR Developed bradycardia leading to PEA cardiac arrest Admission Data Admit Date/Time: 08/12/19 13:43 Other DC Date/Time DO NOT enter until pt leaves facility: 08/14/19 23:50
== END 2019-08-14 23:50 | disposition expired | DRG 189 ==
LOC: ED 11:25 → 1E 13:38 → SUATTDRO 13:38 → 1E 14:29 → 2S 08-14 13:43